=== PATIENT | male | born 1960 | race Caucasian/White ===

== ENCOUNTER 2017-12-08 21:14 | Inpatient (IN) | payer BC ==
[~2017-12-08] VITALS: Ht 182.9 cm; Wt 72.6 kg
[~2017-12-08 21:14] MED LIST changes: -MONT10TA PO; -SERT-173 PO
--- NOTE | 2017-12-08 21:20 | ER Report ---
History and Physical Time Seen By MD: 21:14 HPI/ROS CHIEF COMPLAINT: trauma from falling off of a horse HISTORY OF PRESENT ILLNESS: This is a 57 year old male. Fell off his horse when the horse moved to the side suddenly. He landed on right side/shoulder area. Has pain in the scapula. EMS noted that he was breathing okay and normal vitals in the field. Same on arrival here in the ER. He is able to talk to me, but hurts to breath. Pain in the right shoulder and clavicle area. Thinks he hit his head. Has some neck pain. No loss of consciousness. No pain in back, abdomen , legs. REVIEW OF SYSTEMS: Eyes: No vision changes. ENT: No sore throat or trouble swallowing. Cardiovascular: No palpitations. Respiratory: as above. Gastrointestinal: No abdominal pain. No nausea or vomiting. Genitourinary: No incontinence. Musculoskeletal: As above. Skin: Some abrasions of the elbow area. Neurological: No numbness or weakness noted in the extremities. Allergies: Coded Allergies: kiwi (Verified Allergy, Mild, THROAT SWELLS, 12/08/17) Uncoded Allergies: [facility] (Allergy, Unknown, 04/29/13) Home Meds Reported Medications Sertraline Hcl (ZOLOFT) 50 Mg Tablet, 1 TAB PO QDAY, TAB 03/23/17 Reviewed Nurses Notes: Yes Hx Smoking: Yes Smoking Status: Former Smoker Hx Alcohol Use: Yes Constitutional Vital Sign - Last 24 Hours 12/08/17 12/08/17 12/08/17 12/08/17 21:14 21:15 21:26 21:28 Temp 98.3 Pulse ??? 77 Resp 18 B/P (MAP) 121/82 99/69 (79) 121/82 (95) Pulse Ox 95 O2 Delivery Room Air 12/08/17 12/08/17 12/08/17 12/08/17 21:29 21:30 21:44 21:59 Pulse 75 75 70 Pulse Ox 94 96 97 O2 Flow Rate 2.0 12/08/17 12/08/17 12/08/17 12/08/17 22:14 22:29 22:41 22:44 Pulse ??? 66 69 Resp 24 14 B/P (MAP) 128/89 (102) Pulse Ox 97 97 7/28/12/08/17 12/08/17 12/08/17 22:49 23:00 23:04 23:19 Pulse 66 66 68 Resp 19 B/P (MAP) 112/79 (90) Pulse Ox 97 12/08/17 12/08/17 12/08/17 12/09/17 23:30 23:34 23:49 00:00 Pulse 66 66 Resp 16 16 B/P (MAP) 114/74 (87) 106/78 (87) Pulse Ox 96 97 12/09/17 12/09/17 12/09/17 12/09/17 00:09 00:24 00:30 00:39 Pulse 62 62 62 Resp 22 20 19 B/P (MAP) 103/80 (88) Pulse Ox 95 95 97 12/09/17 12/09/17 12/09/17 00:54 01:00 01:09 Pulse 59 62 Resp 14 15 B/P (MAP) 116/83 (94) Pulse Ox 96 95 Physical Exam General Appearance: The patient is alert, has no immediate need for airway protection, but with significant pain with breathing, and no current signs of toxicity. Eyes: Pupils equal and round, no injection. Reactive to light. Extraocular movements are intact. ENT: No dental or oral trauma. Tympanic membranes normal bilaterally Respiratory: Chest is tender to palpation posterior and lateral right. Breath sounds are equal. Cardiac: Regular rate and rhythm. Gastrointestinal: Soft and non tender, there is no evidence of external or internal trauma by exam. Neurological: GCS 15. Alert and oriented x4. No focal deficits. Skin: No lacerations, have some abrasions on elbow and right hip. Musculoskeletal: Head: Atraumatic without scalp tenderness. Neck: The patient arrived in a cervical collar. The cervical spine is non-tender. Back: There is no thoracic or lumbar spine tenderness. Pain in the right back area mid to upper thoracic. Pelvis: Non-tender, no laxity with pelvic pressure. Extremities: Has some tenderness of the right elbow. DIFFERENTIAL DIAGNOSIS: After history and physical exam differential diagnosis was considered for trauma in falling off of a horse with concern for head injury , cervical spine injury, trunk, ribs, shoulder and lungs on the right side. Medical Decision Making Data Points Result Diagram: 12/08/17212912/08/172129 Laboratory Hematology Test 12/08/17 21:30 Red Blood Count 4.50 M/uL (4.00-5.60) Mean Corpuscular Volume 97.2 fL (80.0-96.0) Mean Corpuscular Hemoglobin 34.3 pg (26.0-33.0) Mean Corpuscular Hemoglobin Concent 35.3 g/dL (32.0-36.0) Red Cell Distribution Width 12.4 % (11.5-14.5) Mean Platelet Volume 6.5 fL (7.2-11.1) Neutrophils (%) (Auto) 54.6 % (39.4-72.5) Lymphocytes (%) (Auto) 35.5 % (17.6-49.6) Monocytes (%) (Auto) 7.8 % (4.1-12.4) Eosinophils (%) (Auto) 1.2 % (0.4-6.7) Basophils (%) (Auto) 0.9 % (0.3-1.4) Nucleated RBC Relative Count (auto) 0.1 /100WBC Neutrophils # (Auto) 3.5 K/uL (2.0-7.4) Lymphocytes # (Auto) 2.2 K/uL (1.3-3.6) Monocytes # (Auto) 0.5 K/uL (0.3-1.0) Eosinophils # (Auto) 0.1 K/uL (0.0-0.5) Basophils # (Auto) 0.1 K/uL (0.0-0.1) Nucleated RBC Absolute Count (auto) 0.01 K/uL Sodium Level 134 mmol/L (137-145) Potassium Level 3.7 mmol/L (3.5-5.0) Chloride Level 97 mmol/L (98-107) Carbon Dioxide Level 23 mmol/L (22-30) Blood Urea Nitrogen 10 mg/dl (9-21) Creatinine 0.90 mg/dl (0.66-1.25) Glomerular Filtration Rate Calc > 60.0 Random Glucose 94 mg/dl (75-110) Lactate 2.5 mmol/L (0.7-2.1) Calcium Level 8.9 mg/dl (8.4-10.2) Total Bilirubin 0.4 mg/dl (0.2-1.3) Aspartate Amino Transf (AST/SGOT) 97 U/L (0-35) Alanine Aminotransferase (ALT/SGPT) 53 U/L (0-56) Alkaline Phosphatase 52 U/L (0-126) Troponin I < 0.012 ng/ml Total Protein 7.9 g/dl (6.3-8.2) Albumin 4.5 g/dl (3.5-5.0) Chemistry Test 12/08/17 21:30 White Blood Count 6.3 k/uL (4.5-11.0) Red Blood Count 4.50 M/uL (4.00-5.60) Hemoglobin 15.4 g/dL (14.0-18.0) Hematocrit 43.7 % (42.0-52.0) Mean Corpuscular Volume 97.2 fL (80.0-96.0) Mean Corpuscular Hemoglobin 34.3 pg (26.0-33.0) Mean Corpuscular Hemoglobin Concent 35.3 g/dL (32.0-36.0) Red Cell Distribution Width 12.4 % (11.5-14.5) Platelet Count 330 K/uL (150-450) Mean Platelet Volume 6.5 fL (7.2-11.1) Neutrophils (%) (Auto) 54.6 % (39.4-72.5) Lymphocytes (%) (Auto) 35.5 % (17.6-49.6) Monocytes (%) (Auto) 7.8 % (4.1-12.4) Eosinophils (%) (Auto) 1.2 % (0.4-6.7) Basophils (%) (Auto) 0.9 % (0.3-1.4) Nucleated RBC Relative Count (auto) 0.1 /100WBC Neutrophils # (Auto) 3.5 K/uL (2.0-7.4) Lymphocytes # (Auto) 2.2 K/uL (1.3-3.6) Monocytes # (Auto) 0.5 K/uL (0.3-1.0) Eosinophils # (Auto) 0.1 K/uL (0.0-0.5) Basophils # (Auto) 0.1 K/uL (0.0-0.1) Nucleated RBC Absolute Count (auto) 0.01 K/uL Glomerular Filtration Rate Calc > 60.0 Lactate 2.5 mmol/L (0.7-2.1) Calcium Level 8.9 mg/dl (8.4-10.2) Total Bilirubin 0.4 mg/dl (0.2-1.3) Aspartate Amino Transf (AST/SGOT) 97 U/L (0-35) Alanine Aminotransferase (ALT/SGPT) 53 U/L (0-56) Alkaline Phosphatase 52 U/L (0-126) Troponin I < 0.012 ng/ml Total Protein 7.9 g/dl (6.3-8.2) Albumin 4.5 g/dl (3.5-5.0) EKG/Imaging EKG Interpretation 12 lead EKG: Rhythm: normal sinus rhythm, rate 76 [place]: normal QRS: normal ST segments: normal Imaging CHEST SINGLE AP 12/08/2017 21:34 hours. HISTORY: Trauma from fall off horse. Right shoulder/scapula/chest pain. COMPARISON: Chest CT 04/07/2011. Chest x-ray 02/08/2008. TECHNIQUE: Portable AP view of the chest. FINDINGS: Tubes/lines/hardware: None. Pulmonary: Lungs are clear. There is no pneumothorax or pleural effusion. Cardiomediastinal: Cardiac and mediastinal silhouettes are within normal limits. Bones/soft tissues: There is an oblique fracture through the mid right clavicle with slight superior displacement of the distal fracture fragment compared to the proximal. There are fractures of the posterolateral third through eighth right ribs. The fourth through sixth are displaced. There is a healed distal left clavicle fracture. The visible abdomen is normal. IMPRESSION: 1. Mildly displaced right clavicular fracture. 2. Right third through eighth posterolateral rib fractures. No pneumothorax. Report Dictated By: Shara Lyman at 12/08/2017 9:55 PM HEAD W/O CONTRAST EXAMINATION: CT head/brain without contrast HISTORY: Trauma TECHNIQUE: Contiguous axial images were obtained from the skull base to the vertex without intravenous contrast. One of the following dose optimization techniques was utilized in the performance of this exam: Automated exposure control; adjustment of the mA and/ or kV according to the patient's size; or use of an iterative reconstruction technique. Specific details can be referenced in the facility's radiology CT exam operational policy. COMPARISON STUDIES: None FINDINGS: Ventricles/sulci/fissures: Midline in position and normal in configuration. Masses/hemorrhage/midline shift: No hemorrhage. White matter: The white matter edema or contusion changes Ortega-white differentiation: Negative Extra-axial spaces: No subdural or epidural fluid collections. No subarachnoid blood Dural venous sinuses/arterial structures: Negative Skull base/calvarium: Negative Visualized mastoid air cells/paranasal sinuses: Negative IMPRESSION: 1. Negative CT scan of the head for acute intracranial pathology. Report Dictated By: Andrea Garcia MD at 12/08/2017 11:09 PM C-SPINE W/O CONTRAST EXAMINATION: CT cervical spine without contrast trauma COMPARISON STUDIES: None TECHNIQUE: Axial images were obtained from the skull base through the upper thoracic spine without IV contrast.. Coronal and sagittal reformatted images were obtained from the axial source data. One of the following dose optimization techniques was utilized in the performance of this exam: Automated exposure control; adjustment of the mA and/ or kV according to the patient's size; or use of an iterative reconstruction technique. Specific details can be referenced in the facility's radiology CT exam operational policy. FINDINGS: Prevertebral soft tissues: Negative Alignment: Straightening of the cervical spine. Dextroscoliotic curvature of the cervical spine maximally convex to the right at the L4-5 interspace. Vertebral bodies: No vertebral body compression deformities or fractures. Posterior elements: Facet joints with no facet fracture or disruption. Facet arthropathy most notable at the C2-3 and 34 levels on the left. Moderately severe foraminal narrowing changes on the right at the C6-7 level. Moderate severe foraminal narrowing changes are also seen on the left at the C3-4 level. Disc spaces: Disc space narrowing and both anterior and posterior osteophytic spurring changes at the C6-7 level. Visualized soft tissues anterior neck: Negative Visualized lung/mediastinum: No apical mass lesion. No pathologic lymphadenopathy. IMPRESSION: 1. Negative cervical spine for acute trauma. DJD changes as described. Report Dictated By: Andrea Garcia MD at 12/08/2017 11:26 PM CHEST W CONTRAST EXAMINATION: CT chest with IV contrast Trauma TECHNIQUE: Spiral scan was obtained through the chest during injection of nonionic iodinated intravenous contrast. Contrast: 75 mL of IV Isovue-370 COMPARISON STUDIES: 04/07/2011 One of the following dose optimization techniques was utilized in the performance of this exam: Automated exposure control; adjustment of the mA and/ or kV according to the patient's size; or use of an iterative reconstruction technique. Specific details can be referenced in the facility's radiology CT exam operational policy. FINDINGS: Lungs / pleura: No pneumothorax. Small hyperdense collection of fluid within the right lung compatible with a hemothorax. Bibasilar passive atelectatic lung changes right greater than left. Mediastinum / evelin: No mediastinal hemorrhage Heart / pericardium: Aortic arch and brachycephalic vessels are normal. Vessels: Aortic arch and brachycephalic vessels are unremarkable Musculoskeletal / Body wall: There are rib fractures involving the lateral third rib nondisplaced, fourth rib with 20% cortical offset, fifth rib laterally with 6 L of cortical buckling, seventh lateral rib with 40% cortical offset, eighth lateral rib with 2 mm of cortical offset,. In addition there are cortical buckling of the right ninth rib at its vertebral body articulation, eighth rib at its articulation, and transverse minimally buckled posterior rib at its reticulation involving the seventh rib. As a distal third clavicular fracture. Old healed left clavicular fracture. Lymph node assessment: negative Lower neck: negative Upper abdomen: No liver injury. No perihepatic or splenic fluid. IMPRESSION: 1. Multiple lateral right-sided rib fractures from the fourth through the eighth ribs as well as posterior fractures of the seventh through ninth ribs near their vertebral articulations. 2. Small right hemothorax. 3. Right clavicular fracture. Report Dictated By: Andrea Garcia MD at 12/08/2017 11:31 PM ED Course/Re-evaluation Clinical Indication for ER IV: Hydration, IV Access ED Course Initial evaluation, primary survey, shows airway, breathing and circulation intact and stable, with concern for pulmonary injury. Exposed for full evaluation and has no neurologic deficits. Further evaluation was done as noted above. Initial chest x-ray done, showing no signs of pneumothorax, but with some rib fractures noted. CT scans done with results as noted. Given another dose of Fentanyl 50mcg IV on arrival and prior to CT scan. Several doses of Dilaudid 0.5mg IV during the rest of the ER stay. Discussed injuries noted on the CT scan with the patient and family. Cervical collar removed and cleared after scans done. Recommended to the patient admission for observation based on the injuries and discussed with Dr. Ricci who came to the ER to evaluate him. Tetanus booster given. After discussing with Dr. Ricci, called and spoke with Dr. Velarde, anesthesiology, who came to see the patient for epidural to help with pain control associated with the rib fractures. Dr. Velarde performed an epidural here in the ER to help with pain control. The patient was admitted to the ICU for further care. Decision to Disposition Date: Dec 09, 2017 Decision to Disposition Time: 00:16 Depart Departure Latest Vital Signs Vital Signs Date Time Temp Pulse Resp B/P (MAP) Pulse Ox O2 Delivery O2 Flow Rate FiO2 12/09/17 01:09 62 15 95 12/09/17 01:00 116/83 (94) 12/08/17 21:30 2.0 12/08/17 21:15 98.3 Room Air Impression: Primary Impression: Closed right clavicular fracture Additional Impressions: Multiple fractures of ribs, right side, initial encounter for closed fracture Hemothorax, right Abrasions of multiple sites Condition: Condition Unchanged Disposition: Admitted from ER Problem Qualifiers Primary Impression: Closed right clavicular fracture Encounter type: initial encounter Clavicle location: unspecified part of clavicle Fracture alignment: displaced Qualified Codes: S42.001A - Fracture of unspecified part of right clavicle, initial encounter for closed fracture CAMERON MCKAY MD Dec 08, 2017 21:20
[2017-12-08] MEDS ORDERED: fentaNYL CITR 100 MCG/2 ML AMP ONE (21:29)
[2017-12-08] MEDS ORDERED: EMS NS 0.9%(*) 1000 ML BAG 1,000 ML IV ONE (21:35)
[2017-12-08 21:46] LABS: PLATELET COUNT, AUTOMATED 330 K/uL (150-450)
[2017-12-08] MEDS ORDERED: IOPAMIDOL 76% 100 ML INFUS BTL 100 ML ONE (21:55)
--- NOTE | 2017-12-08 22:04 | RADIOLOGY IMAGING REPORT ---
FACILITY: [facility] PATIENT NAME: Helena Nuñez : 1960 MR: [id number] V: [id number] EXAM DATE: ORDERING PHYSICIAN: CAMERON MCKAY TECHNOLOGIST: Location: [facility] [place] Patient: Helena Nuñez : 1960 Visit/Account:[id number] Date of Sevice: 12/08/2017 CHEST SINGLE AP 12/08/2017 21:34 hours. HISTORY: Trauma from fall off horse. Right shoulder/scapula/chest pain. COMPARISON: Chest CT 04/07/2011. Chest x-ray 02/08/2008. TECHNIQUE: Portable AP view of the chest. FINDINGS: Tubes/lines/hardware: None. Pulmonary: Lungs are clear. There is no pneumothorax or pleural effusion. Cardiomediastinal: Cardiac and mediastinal silhouettes are within normal limits. Bones/soft tissues: There is an oblique fracture through the mid right clavicle with slight superior displacement of the distal fracture fragment compared to the proximal. There are fractures of the pos terolateral third through eighth right ribs. The fourth through sixth are displaced. There is a heale d distal left clavicle fracture. The visible abdomen is normal. IMPRESSION: 1. Mildly displaced right clavicular fracture. 2. Right third through eighth posterolateral rib fractures. No pneumothorax. Report Dictated By: Shara Lyman at 12/08/2017 9:55 PM Report E-Signed By: Shara Lyman at 12/08/2017 10:00 PM WSN:[id number]
[2017-12-08] MEDS ORDERED: HYDROMORPHONE HCL 1 MG/ML SYRINGE IVP ONE ×2 (22:35→23:30)
--- NOTE | 2017-12-08 22:38 | EKG ---
FACILITY: [facility] PATIENT NAME: KIM HAIRSTON : [id number] MR: [id number] V: [id number] EXAM DATE: ORDERING PHYSICIAN: CAMERON MCKAY TECHNOLOGIST: ABRAHAM Test Reason : TRAUMA Blood Pressure : / mmHG Vent. Rate : 076 BPM Atrial Rate : 076 BPM P-R Int : 190 ms QRS Dur : 092 ms QT Int : 398 ms P-R-T Axes : 064 -09 029 degrees QTc Int : 447 ms Normal sinus rhythm Prominent U waves throughout may be normal variant but would consider hypokalemia. No previous ECGs available Confirmed by SHAWN GALAVIZ ([id number]) on 12/09/2017 6:04:59 AM Referred By: Confirmed By:SHAWN GALAVIZ
--- NOTE | 2017-12-08 23:29 | RADIOLOGY IMAGING REPORT ---
FACILITY: [facility] PATIENT NAME: Helena Nuñez : 1960 MR: [id number] V: [id number] EXAM DATE: ORDERING PHYSICIAN: CAMERON MCKAY TECHNOLOGIST: Location: [facility] [place] Patient: Helena Nuñez : 1960 Visit/Account:[id number] Date of Sevice: 12/08/2017 HEAD W/O CONTRAST EXAMINATION: CT head/brain without contrast HISTORY: Trauma TECHNIQUE: Contiguous axial images were obtained from the skull base to the vertex without intravenou s contrast. One of the following dose optimization techniques was utilized in the performance of this exam: Autom ated exposure control; adjustment of the mA and/or kV according to the patient's size; or use of an i terative reconstruction technique. Specific details can be referenced in the facility's radiology C T exam operational policy. COMPARISON STUDIES: None FINDINGS: Ventricles/sulci/fissures: Midline in position and normal in configuration. Masses/hemorrhage/midline shift: No hemorrhage. White matter: The white matter edema or contusion changes Ortega-white differentiation: Negative Extra-axial spaces: No subdural or epidural fluid collections. No subarachnoid blood Dural venous sinuses/arterial structures: Negative Skull base/calvarium: Negative Visualized mastoid air cells/paranasal sinuses: Negative IMPRESSION: 1. Negative CT scan of the head for acute intracranial pathology. Report Dictated By: Andrea Garcia MD at 12/08/2017 11:09 PM Report E-Signed By: Andrea Garcia MD at 12/08/2017 11:26 PM WSN:[id number]
--- NOTE | 2017-12-08 23:34 | RADIOLOGY IMAGING REPORT ---
FACILITY: [facility] PATIENT NAME: Helena Nuñez : 1960 MR: [id number] V: [id number] EXAM DATE: ORDERING PHYSICIAN: CAMERON MCKAY TECHNOLOGIST: Location: [facility] Patient: Helena Nuñez : 1960 Visit/Account:[id number] Date of Sevice: 12/08/2017 C-SPINE W/O CONTRAST EXAMINATION: CT cervical spine without contrast trauma COMPARISON STUDIES: None TECHNIQUE: Axial images were obtained from the skull base through the upper thoracic spine without IV contrast.. Coronal and sagittal reformatted images were obtained from the axial source data. One of the following dose optimization techniques was utilized in the performance of this exam: Autom ated exposure control; adjustment of the mA and/or kV according to the patient's size; or use of an i terative reconstruction technique. Specific details can be referenced in the facility's radiology C T exam operational policy. FINDINGS: Prevertebral soft tissues: Negative Alignment: Straightening of the cervical spine. Dextroscoliotic curvature of the cervical spine maxim ally convex to the right at the L4-5 interspace. Vertebral bodies: No vertebral body compression deformities or fractures. Posterior elements: Facet joints with no facet fracture or disruption. Facet arthropathy most notable at the C2-3 and 34 levels on the left. Moderately severe foraminal narrowing changes on the right at the C6-7 level. Moderate severe foraminal narrowing changes are also seen on the left at the C3-4 le alyce. Disc spaces: Disc space narrowing and both anterior and posterior osteophytic spurring changes at the C6-7 level. Visualized soft tissues anterior neck: Negative Visualized lung/mediastinum: No apical mass lesion. No pathologic lymphadenopathy. IMPRESSION: 1. Negative cervical spine for acute trauma. DJD changes as described. Report Dictated By: Andrea Garcia MD at 12/08/2017 11:26 PM Report E-Signed By: Andrea Garcia MD at 12/08/2017 11:31 PM WSN:[id number]
[2017-12-08] MEDS ORDERED: PANTOPRAZOLE SOD 40 MG IV VIAL IVP ONE (23:40)
--- NOTE | 2017-12-08 23:45 | RADIOLOGY IMAGING REPORT ---
[place] [facility] [place] NAME: Helena Nuñez : 1960 MR: [id number] V: [id number] EXAM DATE: ORDERING PHYSICIAN: CAMERON MCKAY TECHNOLOGIST: Location: [facility] [place] Patient: Hleena Nuñez : 1960 Visit/Account:[id number] Date of Sevice: 12/08/2017 CHEST W CONTRAST EXAMINATION: CT chest with IV contrast Trauma TECHNIQUE: Spiral scan was obtained through the chest during injection of nonionic iodinated intrav enous contrast. Contrast: 75 mL of IV Isovue-370 COMPARISON STUDIES: 04/07/2011 One of the following dose optimization techniques was utilized in the performance of this exam: Autom ated exposure control; adjustment of the mA and/or kV according to the patient's size; or use of an i terative reconstruction technique. Specific details can be referenced in the facility's radiology C T exam operational policy. FINDINGS: Lungs / pleura: No pneumothorax. Small hyperdense collection of fluid within the right lung compatibl e with a hemothorax. Bibasilar passive atelectatic lung changes right greater than left. Mediastinum / evelin: No mediastinal hemorrhage Heart / pericardium: Aortic arch and brachycephalic vessels are normal. Vessels: Aortic arch and brachycephalic vessels are unremarkable Musculoskeletal / Body wall: There are rib fractures involving the lateral third rib nondisplaced, fo urth rib with 20% cortical offset, fifth rib laterally with 6 L of cortical buckling, seventh lateral rib with 40% cortical offset, eighth lateral rib with 2 mm of cortical offset,. In addition there ar e cortical buckling of the right ninth rib at its vertebral body articulation, eighth rib at its dwight culation, and transverse minimally buckled posterior rib at its reticulation involving the seventh ri b. As a distal third clavicular fracture. Old healed left clavicular fracture. Lymph node assessment: negative Lower neck: negative Upper abdomen: No liver injury. No perihepatic or splenic fluid. IMPRESSION: 1. Multiple lateral right-sided rib fractures from the fourth through the eighth ribs as well as post erior fractures of the seventh through ninth ribs near their vertebral articulations. 2. Small right hemothorax. 3. Right clavicular fracture. Report Dictated By: Andrea Garcia MD at 12/08/2017 11:31 PM Report E-Signed By: Andrea Garcia MD at 12/08/2017 11:42 PM WSN:[id number]
[2017-12-09] VITALS (33 sets, daily range): BP systolic 132–176; BP diastolic 70–99; Ht 182.9 cm; Wt 72.6 kg
[2017-12-09] MEDS ORDERED: HYDROMORPHONE HCL 1 MG/ML SYRINGE IVP ONE ×2 (00:35→01:10)
[2017-12-09] MEDS ORDERED: ONDANSETRON 4 MG/2 ML VIAL IVP PRN (00:35)
[2017-12-09] MEDS ORDERED: NALOXONE HCL 0.4 MG/ML VIAL IVP PRN (00:35)
--- NOTE | 2017-12-09 00:49 | RADIOLOGY IMAGING REPORT ---
FACILITY: [facility] PATIENT NAME: Helena Nuñez : 1960 MR: [id number] V: [id number] EXAM DATE: ORDERING PHYSICIAN: CAMERON MCKAY TECHNOLOGIST: Location: [facility] [place] Patient: Helena Nuñez : 1960 Visit/Account:[id number] Date of Sevice: 12/08/2017 ELBOW 3 VIEWS RIGHT HISTORY: Trauma. Fell from horse. Elbow pain. COMPARISON: None. TECHNIQUE: AP, oblique, and lateral views of the right elbow. FINDINGS: There is no fracture or dislocation. There is degenerative change of the elbow joint. No ricci int effusion. IMPRESSION: 1. Degenerative changes, but no acute osseous abnormality of the right elbow. Report Dictated By: Shara Lyman at 12/09/2017 12:44 AM Report E-Signed By: Shara Lyman at 12/09/2017 12:45 AM WSN:[id number]
[2017-12-09] MEDS ORDERED: DIPHTH/TETANUS/ACEL. PERTUSSIS IM ONLY ONE (00:50)
--- NOTE | 2017-12-09 00:57 | Gen Surgery History & Physical ---
History of Present Illness Chief Complaint Right chest wall pain History of Present Illness This 57 year old fell off his horse onto his right side. He was wearing a helmet and denies LOC. He complained of right sided chest wall pain that worsens with deep breathing or movement. Also c/o right clavicle and elbow pain. He denies neck, back, or abdominal pain. History Problems: (1) Personal history of subdural hematoma Status: Resolved (2) Depression Status: Chronic Home Meds Reported Medications Sertraline Hcl (ZOLOFT) 50 Mg Tablet, 1 TAB PO QDAY, TAB 03/23/17 Allergies: Coded Allergies: kiwi (Verified Allergy, Mild, THROAT SWELLS, 12/08/17) Uncoded Allergies: CEMENT KOOTENAI (Allergy, Unknown, 04/29/13) Review of Systems All Systems Reviewed/Normal: Yes, Except as Noted Cardiovascular: Chest Pain Musculoskeletal: Pain Psychiatric: Depression Exam General Appearance: Alert, Awake, Afebrile Neuro: No Gross deficits Eyes: PERRLA ENT: Moist Mucous Membranes Cardiovascular: Regular Rate and Rhythm Respiratory: No Respiratory Distress (breath sounds diminished in both bases though right > left) Chest: Other (Tender right chest wall, no subcutaneous emphysema or crepitance) GI: Abd Soft and Non-Tender Musculoskeletal: Other (Tender right clavicle) Extremities: Other (right elbow tender, minimal edema, no deformity, distal CMS intact, small abrasion.) Psych: Alert & Oriented X3, Appropriate Mood & Affect Medical Decision Making Data Points Result Diagram: 12/08/17212912/08/172129 Assessment and Plan Problems: (1) Abrasions of multiple sites Status: Acute Assessment & Plan: Received tetanus booster in the past year Bacitracin to wounds (2) Hemothorax, right Status: Acute Assessment & Plan: Small hemothorax Will recheck CXR in am, if larger then I will place a chest tube Recheck CBC in am (3) Multiple fractures of ribs, right side, initial encounter for closed fracture Status: Acute Assessment & Plan: Pain control We have asked anesthesiologist to place a thoracic epidural to help with pain control Likely will need a Pearson secondary to epidural IS and Vigorous pulmonary toilet (4) Closed right clavicular fracture Status: Acute Assessment & Plan: sling pain control Time Spent: > 30 min Venous Thromboembolism VTE Risk Physician Assess for VTE Risk: Yes Patient's VTE Risk: Low VTE Diagnostic Test 2 Days Prior to Admit: No Antithrombotics Is Pt On Any Antithrombotics?: No Prophylaxis Tx Contraindicated Pharmacological Contraindicati: Pt at Low Risk for VTE LALI RENE MD Dec 09, 2017 00:57
[2017-12-09] MEDS ORDERED: NS(*) 0.9% 1000 ML BAG 1,000 ML IV ONE (01:10)
[2017-12-09] MEDS ORDERED: LR(*) 1000 ML BAG 1,000 ML IV PRN (03:15)
[2017-12-09] MEDS ORDERED: ROPIVACAINE EPI ONE (03:15)
[2017-12-09] MEDS ORDERED: PHENYLEPHRINE 10 MG/1 ML VIAL IVP PRN (03:20)
[2017-12-09] MEDS ORDERED: NICOTINE 14 MG/24 HR PATCH TD ONE ×2 (03:39→09:00)
[2017-12-09] MEDS: LR(*) 1000 ML BAG 1,000 ML IV PRN ×2 (04:49→14:47)
--- NOTE | 2017-12-09 05:55 | RADIOLOGY IMAGING REPORT ---
[place] [facility] [place]ena Nuñez : 1960 MR: [id number] V: [id number] EXAM DATE: ORDERING PHYSICIAN: LALI RENE TECHNOLOGIST: [place] [facility] [place]: Helena Nuñez : 1960 Visit/Account:[id number] Date of Sevice: 12/09/2017 CHEST SINGLE AP 12/09/2017 06:30 hours. HISTORY: Follow-up right blunt chest trauma. COMPARISON: 12/08/2017 and studies dating to 02/08/2008. TECHNIQUE: Portable AP view of the chest. FINDINGS: Tubes/lines/hardware: There are external chest leads. There is an epidural catheter. Pulmonary: Lung volumes are lower, and there is new bibasilar atelectasis. There is no pneumothorax o r pleural effusion. Cardiomediastinal: Cardiac and mediastinal silhouettes are within normal limits. Bones/soft tissues: No acute osseous abnormality. Numerous right posterolateral rib fractures are unc hanged. Right clavicular fracture is less well appreciated due to change in patient position. Old lef t clavicle fracture. The visible abdomen is normal. IMPRESSION: 1. Lower lung volumes with new bibasilar atelectasis. 2. Unchanged right rib fractures and right clavicular fracture. Report Dictated By: Shara Lyman at 12/09/2017 5:47 AM Report E-Signed By: Shara Lyman at 12/09/2017 5:51 AM WSN:[id number]
[2017-12-09] MEDS: DOCUSATE SODIUM 100 MG CAP PO SCH ×2 (08:47→20:17)
[2017-12-09] MEDS: PANTOPRAZOLE SOD 40 MG TABEC PO SCH (08:47)
[2017-12-09] MEDS: PATCH REMOVAL 1 EA TP SCH (08:48)
[2017-12-09] MEDS ORDERED: SERTRALINE HCL 50 MG TAB PO SCH (10:20)
--- NOTE | 2017-12-09 10:34 | General Surgery Progress Note ---
Subjective Progress Notes Subjective "My collar bone hurts" Physical Exam Vital Signs Date Time Temp Pulse Resp B/P (MAP) Pulse Ox O2 Delivery O2 Flow Rate FiO2 12/09/17 10:09 97.9 16 153/80 (104) 94 Nasal Cannula 2.0 12/09/17 09:45 62 Intake and Output 12/10/17 07:00 Intake Total 590 ml Balance 590 ml Intake Oral 590 ml General Appearance: Alert, Awake, No Acute Distress, Afebrile Neuro: No Gross deficits Eyes: PERRLA ENT: Moist Mucous Membranes Cardiovascular: Regular Rate and Rhythm Respiratory: No Respiratory Distress, Clear to Auscultation Chest: Other (No subcutaneous emphysema or crepitance) GI: Soft and Non-Tender Musculoskeletal: Other (Moderate swelling and ecchymosis over right clavicle fracture, Distal CMS intact) Result Diagram: 12/08/17212912/08/172129 Imaging CXR with no significant change. Assessment and Plan Problems: (1) Abrasions of multiple sites Status: Acute Assessment & Plan: 12/09/17: Received tetanus booster in the past year, Bacitracin to wounds (2) Hemothorax, right Status: Acute Assessment & Plan: 12/09/17: Small hemothorax noted on CT not appreciated on this am CXR, Will recheck CXR in am, H&H stable. (3) Multiple fractures of ribs, right side, initial encounter for closed fracture Status: Acute Assessment & Plan: 12/09/17: Pain control good with epidural, voiding okay. Continue IS and Vigorous pulmonary toilet (4) Closed right clavicular fracture Status: Acute Assessment & Plan: 12/09/17: continue to use sling as we mobilize, ice pack, continue Percocet for pain control. (5) Depression Status: Chronic Assessment & Plan: Continue home Zoloft. Time Spent: < 30 min Exam Sepsis Risk: No Definite Risk Problem Qualifiers (1) Closed right clavicular fracture: Encounter type: initial encounter Clavicle location: unspecified part of clavicle Fracture alignment: displaced Qualified Codes: S42.001A - Fracture of unspecified part of right clavicle, initial encounter for closed fracture LALI RENE MD Dec 09, 2017 10:34
[2017-12-09] MEDS ORDERED: MONT10TA PO (10:50)
[2017-12-09] MEDS ORDERED: SERT-173 PO (10:50)
[2017-12-09] MEDS ORDERED: SERTRALINE HCL 50 MG TAB PO ONE (10:55)
[2017-12-09] MEDS: NICOTINE 14 MG/24 HR PATCH TD SCH (10:57)
[2017-12-09] MEDS: ROPIVACAINE EPI SCH (16:10)
[2017-12-10] VITALS (7 sets, daily range): BP systolic 126–153; BP diastolic 73–102
[2017-12-10] MEDS: LR(*) 1000 ML BAG 1,000 ML IV PRN (00:56)
[2017-12-10 05:58] LABS: PLATELET COUNT, AUTOMATED 243 K/uL (150-450)
--- NOTE | 2017-12-10 06:17 | RADIOLOGY IMAGING REPORT ---
FACILITY: [facility] PATIENT NAME: Helena Nuñez : 1960 MR: [id number] V: [id number] EXAM DATE: ORDERING PHYSICIAN: LALI RENE TECHNOLOGIST: Location: [facility] Patient: Helena Nuñez : 1960 Visit/Account:[id number] Date of Sevice: 12/10/2017 CHEST PA AND LAT HISTORY: Follow-up. Right-sided chest trauma. COMPARISON: 12/09/2017 and studies dating to 02/08/2008. TECHNIQUE: PA and lateral views of the chest. FINDINGS: Tubes/lines/hardware: There is an epidural catheter. Pulmonary: Small right pleural effusion is new or larger. There is a trace left pleural effusion that is new or larger. There are adjacent bibasilar opacities that have progressed. No pneumothorax. Cardiomediastinal: Cardiac and mediastinal silhouettes are within normal limits. Bones/soft tissues: No acute osseous abnormality. Multiple right-sided rib fractures are unchanged. T he visible abdomen is normal. IMPRESSION: 1. Small right and trace left pleural effusions are new or have increased in size. 2. Worsening bibasilar opacities, likely worsening atelectasis. Report Dictated By: Shara Lyman at 12/10/2017 6:10 AM Report E-Signed By: Shara Lyman at 12/10/2017 6:13 AM WSN:[id number]
[2017-12-10] MEDS: DOCUSATE SODIUM 100 MG CAP PO SCH ×2 (08:20→20:25)
[2017-12-10] MEDS: NICOTINE 14 MG/24 HR PATCH TD SCH (08:21)
[2017-12-10] MEDS: PANTOPRAZOLE SOD 40 MG TABEC PO SCH (08:21)
[2017-12-10] MEDS: PATCH REMOVAL 1 EA TP SCH (08:22)
[2017-12-10] MEDS ORDERED: SERTRALINE HCL 50 MG TAB PO SCH (09:00)
[2017-12-10] MEDS: ROPIVACAINE EPI SCH ×2 (09:30→20:45)
--- NOTE | 2017-12-10 09:44 | General Surgery Progress Note ---
Subjective Progress Notes Subjective "I'm hurting", tolerating diet, passing flatus, no BM since admission. Voiding without difficulty. Patient Complains of: Respiratory: Congestion Musculoskeletal: Pain Physical Exam Vital Signs Date Time Temp Pulse Resp B/P (MAP) Pulse Ox O2 Delivery O2 Flow Rate FiO2 12/10/17 08:10 92 Nasal Cannula 2.0 12/10/17 07:49 98.2 65 24 131/91 (104) Intake and Output 12/11/17 07:00 Intake Total 0 ml Output Total 500 ml Balance -500 ml Intake Oral 0 ml Output Urine Total 500 ml General Appearance: Alert, Awake, No Acute Distress, Afebrile Neuro: No Gross deficits Eyes: PERRLA ENT: Moist Mucous Membranes Cardiovascular: Regular Rate and Rhythm Respiratory: No Respiratory Distress, Other (Diminished breath sounds both bases, rhonchi with partial clearing with coughing) GI: Soft and Non-Tender Extremities: Soft and Non Tender Psych: Alert & Oriented X3, Appropriate Mood & Affect Result Diagram: 12/10/17 0510 12/08/170 Assessment and Plan Problems: (1) Abrasions of multiple sites Status: Acute Assessment & Plan: 12/09/17: Received tetanus booster in the past year, Bacitracin to wounds (2) Hemothorax, right Status: Acute Assessment & Plan: 12/09/17: Small hemothorax noted on CT not appreciated on this am CXR, Will recheck CXR in am, H&H stable. 12/10/17: CXR with increase in effusion. Hct down but likely related to IV hydration. Will get repeat CT chest today. Will place chest tube if this fluid appears as blood. Repeat CBC in am. (3) Multiple fractures of ribs, right side, initial encounter for closed fracture Status: Acute Assessment & Plan: . 12/09/17: Pain control good with epidural, voiding okay. Continue IS and Vigorous pulmonary toilet. 12/10/17: Having increased chest wall pain this am. Anesthesia will re bolus epidural. Once pain under better control, will need vigorous pulmonary toilet. (4) Closed right clavicular fracture Status: Acute Assessment & Plan: 12/09/17: continue to use sling as we mobilize, ice pack, continue Percocet for pain control. 12/10/17: continue with same plan. (5) Depression Status: Chronic Assessment & Plan: Continue home Zoloft. Time Spent: < 30 min Exam Sepsis Risk: No Definite Risk Problem Qualifiers (1) Closed right clavicular fracture: Encounter type: initial encounter Clavicle location: unspecified part of clavicle Fracture alignment: displaced Qualified Codes: S42.001A - Fracture of unspecified part of right clavicle, initial encounter for closed fracture LALI RENE MD Dec 10, 2017 09:44
--- NOTE | 2017-12-10 17:30 | RADIOLOGY IMAGING REPORT ---
FACILITY: [facility] PATIENT NAME: Helena Nuñez : 1960 MR: [id number] V: [id number] EXAM DATE: ORDERING PHYSICIAN: LALI RENE TECHNOLOGIST: Location: [facility] [place] Patient: Helena Nuñez : 1960 Visit/Account:[id number] Date of Sevice: 12/10/2017 CT CHEST HIGH RES WO CONTRAST COMPARISON: Standard protocol CT chest with contrast 12/08/2017. HISTORY: follow up chest trauma. TECHNIQUE: Axial CT of the chest without intravenous contrast, interstitial lung disease protocol by request, including 3 mm axial contiguous reconstructions, limited expiratory and prone scans in 1 mm high-resolution images at 1 cm intervals. Coronal and sagittal reformats. One of the following dose o ptimization techniques was utilized in the performance of this exam: automated exposure control; adj ustment of the mA and/or kV according to patient size; or use of iterative reconstruction technique. Specific details can be referenced in the facility's radiology CT exam operational policy. CT CHEST FINDINGS: CARDIAC: Mild coronary artery calcifications. No pericardial effusion. MEDIASTINUM/ELISE: No well-defined hematoma. No significantly enlarged mediastinal nodes and no defin ite hilar adenopathy, limited assessment without IV contrast VASCULATURE: There is no intramural hematoma. There is cardiac pulsation artifact in the main pulmon yrn artery and ascending aorta. CHEST WALL: There is no axillary adenopathy or well-defined soft tissue hematoma. There is fat stran ding in the right supraclavicular fat system with soft tissue contusion. LUNGS/PLEURA: Small right pleural effusion is larger. Trace left pleural effusion is new. There are multifocal, patchy areas of groundglass attenuation and consolidation with an upper lung zone predomi nance, new from previous. These did not significantly clear on prone scanning. These are most consist ent with evolving lung contusions given the history of recent trauma. Multifocal pneumonia is possibl e. There is no pneumothorax. No significant air trapping on expiratory scanning. BONES: There are no vertebral body compression fractures. Multiple acute right rib fractures as rece ntly described. An acute longitudinal fracture of the right clavicular shaft is also noted with 5 mm anterior displacement. This has been described on prior chest x-ray. LIMITED ABDOMEN: Unremarkable. OTHER: Negative. IMPRESSION: 1. Multiple patchy areas of consolidation with an upper lung zone predominance, new from 12/08/2017 m ost consistent with evolving lung contusions. Multifocal pneumonia is also possible. 2. A small right pleural effusion is larger. A trace left pleural effusion is new. Neither appears h emorrhagic. 3. Previously described fractures including multiple right rib fractures on the right clavicular sha ft fracture are stable. 4. Mild coronary artery calcifications. Report Dictated By: German Parks at 12/10/2017 5:17 PM Report E-Signed By: German Parks at 12/10/2017 5:27 PM WSN:[id number]
--- NOTE | 2017-12-10 23:52 | General Surgery Progress Note ---
Assessment and Plan Problems: (1) Abrasions of multiple sites Status: Acute Assessment & Plan: 12/09/17: Received tetanus booster in the past year, Bacitracin to wounds (2) Hemothorax, right Status: Acute Assessment & Plan: 12/09/17: Small hemothorax noted on CT not appreciated on this am CXR, Will recheck CXR in am, H&H stable. 12/10/17: CXR with increase in effusion. Hct down but likely related to IV hydration. Will get repeat CT chest today. Will place chest tube if this fluid appears as blood. Repeat CBC in am. 12/10/17: Chest CT reviewed, will continue to hold off on chest drain, though if increase further than will need pig tail or chest tube. Recheck CXR in am. Radiologist reports 1. Multiple patchy areas of consolidation with an upper lung zone predominance, new from 12/08/2017 most consistent with evolving lung contusions. Multifocal pneumonia is also possible. 2. A small right pleural effusion is larger. A trace left pleural effusion is new. Neither appears hemorrhagic. 3. Previously described fractures including multiple right rib fractures on the right clavicular shaft fracture are stable. 4. Mild coronary artery calcifications. (3) Multiple fractures of ribs, right side, initial encounter for closed fracture Status: Acute Assessment & Plan: . 12/09/17: Pain control good with epidural, voiding okay. Continue IS and Vigorous pulmonary toilet. 12/10/17: Having increased chest wall pain this am. Anesthesia will re bolus epidural. Once pain under better control, will need vigorous pulmonary toilet. (4) Closed right clavicular fracture Status: Acute Assessment & Plan: 12/09/17: continue to use sling as we mobilize, ice pack, continue Percocet for pain control. 12/10/17: continue with same plan. (5) Depression Status: Chronic Assessment & Plan: Continue home Zoloft. Problem Qualifiers (1) Closed right clavicular fracture: Encounter type: initial encounter Clavicle location: unspecified part of clavicle Fracture alignment: displaced Qualified Codes: S42.001A - Fracture of unspecified part of right clavicle, initial encounter for closed fracture LALI RENE MD Dec 10, 2017 23:52
[2017-12-11] VITALS (87 sets, daily range): BP systolic 75–167; BP diastolic 52–102
[2017-12-11 05:38] LABS: PLATELET COUNT, AUTOMATED 227 K/uL (150-450)
[2017-12-11] MEDS ORDERED: ROPIVACAINE EPI SCH (05:41)
[2017-12-11] MEDS ORDERED: SALINE 0.65% NAS SPR 44 ML BTL PRN (05:45)
[2017-12-11] MEDS: ALBUTEROL 2.5 MG/3 ML NEB NEB SCH ×5 (05:58→21:08)
[2017-12-11] MEDS: ACETAMINOPHEN(*)1000 MG/100 ML 100 ML IVPB SCH ×4 (06:08→23:48)
--- NOTE | 2017-12-11 06:37 | RADIOLOGY IMAGING REPORT ---
FACILITY: [facility] - [place] PATIENT NAME: Helena Nuñez : 1960 MR: [id number] V: [id number] EXAM DATE: ORDERING PHYSICIAN: LALI RENE TECHNOLOGIST: Location: [facility] - [place] Patient: Helena Nuñez : 1960 Visit/Account:[id number] Date of Sevice: 12/11/2017 CHEST SINGLE AP Indication: Follow-up blunt chest trauma. Comparison: December 10, 2017. Findings: Heart size within normal limits. Increased patchy opacities within both lungs. Small to moderate right and small left pleural effusions with associated atelectasis. No visualized pneumothorax. Right-sided rib fractures. IMPRESSION: 1. Increased patchy opacities within both lungs. 2. Small moderate right and small left pleural effusions with associated atelectasis. Report Dictated By: Neal Lea MD at 12/11/2017 6:31 AM Report E-Signed By: Neal Lea MD at 12/11/2017 6:33 AM WSN:[id number]
--- NOTE | 2017-12-11 07:42 | General Surgery Progress Note ---
Subjective Progress Notes Subjective "I'm still hurting", denies SOB, able to speak in sentences. Physical Exam Vital Signs Date Time Temp Pulse Resp B/P (MAP) Pulse Ox O2 Delivery O2 Flow Rate FiO2 12/11/17 05:59 68 18 12/11/17 05:50 94 Nasal Cannula 5.0 12/11/17 04:45 97.7 167/102 (123) General Appearance: Alert, Awake, No Acute Distress, Afebrile Neuro: No Gross deficits Eyes: PERRLA ENT: Moist Mucous Membranes Cardiovascular: Regular Rate and Rhythm Respiratory: No Respiratory Distress (Decreased breath sounds bilaterally, IS only to 500 ml), Other GI: Soft and Non-Tender Extremities: Soft and Non Tender Psych: Alert & Oriented X3, Appropriate Mood & Affect Result Diagram: 12/11/17 0512/11/17 05 ABG with PO2 of 42 and 80% O2 saturation. pH and pCO2 WNL. Imaging Increasing RLL atelectasis, no increase in effusion. Patchy infiltrates bilaterally. Monitor Interpretation: Normal Sinus Rhythm Assessment and Plan Problems: (1) Abrasions of multiple sites Status: Acute Assessment & Plan: 12/09/17: Received tetanus booster in the past year, Bacitracin to wounds (2) Hemothorax, right Status: Acute Assessment & Plan: 12/09/17: Small hemothorax noted on CT not appreciated on this am CXR, Will recheck CXR in am, H&H stable. 12/10/17: CXR with increase in effusion. Hct down but likely related to IV hydration. Will get repeat CT chest today. Will place chest tube if this fluid appears as blood. Repeat CBC in am. 12/10/17: Chest CT reviewed, will continue to hold off on chest drain, though if increase further than will need pig tail or chest tube. Recheck CXR in am. Radiologist reports 1. Multiple patchy areas of consolidation with an upper lung zone predominance, new from 12/08/2017 most consistent with evolving lung contusions. Multifocal pneumonia is also possible. 2. A small right pleural effusion is larger. A trace left pleural effusion is new. Neither appears hemorrhagic. 3. Previously described fractures including multiple right rib fractures on the right clavicular shaft fracture are stable. 4. Mild coronary artery calcifications. 12/11/17: No significant increase in effusion, if he requires intubation then will place pleural drain. Hct stable (3) Multiple fractures of ribs, right side, initial encounter for closed fracture Status: Acute Assessment & Plan: . 12/09/17: Pain control good with epidural, voiding okay. Continue IS and Vigorous pulmonary toilet. 12/10/17: Having increased chest wall pain this am. Anesthesia will re bolus epidural. Once pain under better control, will need vigorous pulmonary toilet. 12/11/17: Added Gabapentin, IV Tylenol and increased dose of oxycodone for pain control. Despite this he is developing progressive RLL atelectasis and now hypoxemia with increasing O2 requirement. Bilateral patchy infiltrates noted. Afebrile with normal WBC. Will transfer to ICU with high flow NC. Bolus epidural, Intensify pulmonary toilet. Good chance he will require intubation, mechanical ventilation, and even bronchoscopy. (4) Closed right clavicular fracture Status: Acute Assessment & Plan: 12/09/17: continue to use sling as we mobilize, ice pack, continue Percocet for pain control. 12/10/17: continue with same plan. 12/11/17: less edema, continue ice and sling. (5) Depression Status: Chronic Assessment & Plan: Continue home Zoloft. (6) Acute on chronic respiratory failure with hypoxia Status: Acute Assessment & Plan: 12/11/17: Transfer to ICU, intensify pulmonary toilet, High flow nasal cannula, continue Albuterol q 4 h, if no improvement then intubation , and mechanical ventilation. Time Spent: > 30 min Exam Sepsis Risk: No Definite Risk Problem Qualifiers (1) Closed right clavicular fracture: Encounter type: initial encounter Clavicle location: unspecified part of clavicle Fracture alignment: displaced Qualified Codes: S42.001A - Fracture of unspecified part of right clavicle, initial encounter for closed fracture LALI RENE MD Dec 11, 2017 07:42
[2017-12-11] MEDS ORDERED: FUROSEMIDE 40 MG/4 ML VIAL IVP ONE (08:05)
[2017-12-11] MEDS ORDERED: GABAPENTIN 100 MG CAP PO SCH (09:00)
[2017-12-11] MEDS ORDERED: SUCCINYLCHOL CHL 200MG/10ML VL IVP ONE (09:20)
[2017-12-11] MEDS ORDERED: MIDAZOLAM 2 MG/2 ML VIAL IVP ONE ×2 (09:40→10:25)
[2017-12-11] MEDS ORDERED: PROPOFOL(*)1000 MG/100 ML VIAL 100 ML IV PRN (09:44)
[2017-12-11] MEDS ORDERED: LORazepam 2 MG/ML VIAL IVP PRN (09:45)
[2017-12-11] MEDS ORDERED: LORazepam 1 MG TAB PO PRN (09:45)
[2017-12-11] MEDS ORDERED: fentaNYL CITR 250 MCG/5 ML AMP 1,500 MCG in NS 0.9% 150 ML BAG 120 ML IV SCH (10:05)
[2017-12-11] MEDS ORDERED: NS 0.9% IVP PRN (10:10)
[2017-12-11] MEDS ORDERED: [UNRECOGNIZED DRUG - OTHER] IVP PRN (10:10)
--- NOTE | 2017-12-11 10:19 | RADIOLOGY IMAGING REPORT ---
FACILITY: [facility] [place] PATIENT NAME: Helena Nuñez : 1960 MR: [id number] V: [id number] EXAM DATE: ORDERING PHYSICIAN: CARSON ANDERSON TECHNOLOGIST: Location: [facility] - [place] Patient: Helena Nuñez : 1960 Visit/Account:[id number] Date of Sevice: 12/11/2017 Study: Single portable view of the chest. Indication: Status post intubation Comparison study: December 11, 2017 6:12 AM Technique: Single AP view of the chest and shows presence of an endotracheal tube with the tip 4 cm a rae the level of the chevy. There is nasogastric tube with the tip overlying the stomach. There are diffuse patchy infiltrates throughout the lung cain. These are unchanged from the previo us study. There is no evidence of pneumothorax. There is no definite pleural effusion noted. IMPRESSION: Status post intubation. Bilateral patchy infiltrates without significant change. Report Dictated By: Nasir Kruse at 12/11/2017 10:14 AM Report E-Signed By: Nasir Kruse at 12/11/2017 10:15 AM WSN:[id number]
[2017-12-11] MEDS ORDERED: [UNRECOGNIZED DRUG - OTHER] IV SCH (11:00)
[2017-12-11] MEDS ORDERED: NS 0.9% IV SCH (11:00)
[2017-12-11] MEDS ORDERED: 1: MULTIVITAMINS(*) 10 ML VIAL 10 ML, FOLIC ACID(*) 50 MG/10 ML INJ 1 MG, THIAMINE HCL( IV SCH (11:00)
--- NOTE | 2017-12-11 11:23 | Medical Nutrition Therapy ---
Nutrition Anthropometrics Height (Inches): 72.00 Height (Calculated Centimeters: 182.416043 Weight (Pounds): 162 Weight (Calculated Kilograms): 73.567 BMI: 22 Timmy Nutrition Score: Adequate Timmy Nutrition Risk Score: 20 Dietary Referral Nutrition Risk Factors: Nutrition Risk Comment: Nutritional Diagnosis Nutritional Risk Acuity 1: Tube Feed Unstable, Pulm Fail Vent Past Medical History: Depression Nutritional Acuity: 1-High Nutrition Diagnosis: Inadequate Nutr. Support Nutrition Etiology: Physiological Causes Nutrition Problem/Etiology/Sym: Inadequatr nutr support R/t low volume of nutritional supplement AEB nutr supplment meeting Energy Requirement: 2300 ([place] X 1.25 AF) Protein Requirement: 73 (1gm/kg) Fluid Requirement: 2200 (30 ml/kg) Diet Type: NPO (Nothing by Mouth), Tube Feeding (TF) Nutrition Intervention: Incr diet as tolerated Nutritional Support Current Enteral / Parental: Tube Feeding Tube Feeding Formulas: Jevity 1cal/ml-Standard Current Tube Feeding Formula C: 10ml/hr Tube Feeding Supplement Streng: Full Feeding Route: FT Placed Oralgastric Current Duration: 24 Current Calories: 255 Current Protein: 11 Current Lipids Calories: 583 (22.1 mls propofol) Total Current Calories: 838 Recommended Enteral / Parental: Tube Feeding Recommended Tube Feeding Formu: Jevity 1cal/ml-Standard Recommended Tube Feeding Formu: increase to 70 ml/hr final rate Tube Feeding Supplement Streng: Full Recommended Duration: 24 Recommended Calories: 1781 Recommended Protein: 74 Recommended Lipids Calories: 583 (from propofol at 22.1mls/hr) Total Recommended Calories: 2364 Nutrition Monitoring & Eval Nutritional Goals Comment: TF will meet nutr needs until oral intake can meet needs. RD Patient Assessment Time: [address] Assessment Type: RD Assessment Patient Nutrition Acuity: 1-High Follow Up Date: Dec 12, 2017 Nutritional Comment: 12/09 Pt admitted after fall from horse for Abrasions, Hemothorax, Multiple fractures of ribs, and clavicular fracture. Lactate 2.5, Alb 4.5. Within normal wt range with BMI of 22.0. Receiving PARESH and consuming 100% of meals. Follow intake, labs, etc. DRT 12/11 Pt moved to ICU r/t respirtory failure. Pt is currently on [facility] vent and recieving propofol at 22.1mls/hr. Pt is on TF of jevity at 10ml/hr provideing 255 kcal with additional 583 kcal from Propofol. Current TF order is meeting 25% est kcal and 7% est protein needs. If pt is to remain on mech vent, recommend a final rate of 70 ml/hr which meets 100% est protein needs and 103% est karen needs with the current rate of propofol. Copies To Copies to: BARBRA CHATTERJEE MD, BETH Dec 11, 2017 11:22
[2017-12-11] MEDS: PROPOFOL(*)1000 MG/100 ML VIAL 100 ML IV PRN ×3 (11:54→20:08)
[2017-12-11] MEDS: ORAL SUCTION/CHLORHX/SWAB KIT MT SCH ×2 (12:01→20:31)
[2017-12-11] MEDS ORDERED: NS(*) 0.9% 500 ML BAG 500 ML ONE (12:04)
[2017-12-11] MEDS ORDERED: KETAMINE HCL 500 MG/5 ML VIAL IVP ONE (12:40)
[2017-12-11] MEDS ORDERED: KETAMINE HCL 500 MG/5 ML VIAL ONE (12:41)
[2017-12-11] MEDS ORDERED: MIDAZOLAM 1 MG/1 ML 10 ML IVP ONE (12:56)
[2017-12-11] MEDS ORDERED: MIDAZOLAM 1 MG/1 ML 10 ML ONE (13:05)
--- NOTE | 2017-12-11 13:07 | Hospitalist Consultation ---
History of Present Illness Requesting Physician Dr Collier Reason for Consult Alcohol withdrawal, vent management. Chief Complaint Acute hypoxic respiratory failure, Alcohol dependence History of Present Illness 57M presented 4 days ago after being thrown from horse. Has several R rib Fx, Fx R clavicle. Was transferred to ICU from floor this am after having greatly increased O2 needs.Pt was subsequently intubated and sedated when he did not tolerate BiPAP. Review of imaging shows developing lung contusion, pleural effusion on L and area of atelectasis which has progressed. Image 07.31 after intubation R lung field almost completely obscured. Pt to have bronch, R chest tube and central line per surgery. Secretions appear thick and cream colored. Pt with Hx of 2PPD smoking and reports drinks 8-12 beers daily with a shot or two as well. Our team was consulted fro withdrawal management as well as vent management. History Home Meds Reported Medications Montelukast Sodium (SINGULAIR) 10 Mg Tablet, 1 TAB PO QDAY, TAB 12/09/17 Sertraline Hcl (ZOLOFT) 100 Mg Tablet, 1 TAB PO QDAY, TAB 12/09/17 Discontinued Reported Medications Sertraline Hcl (ZOLOFT) 50 Mg Tablet, 1 TAB PO QDAY, TAB 03/23/17 Allergies: Coded Allergies: kiwi (Verified Allergy, Mild, THROAT SWELLS, 12/08/17) hydromorphone (Verified Adverse Reaction, Unknown, hot flashes, sweating, , 12/11/17) Uncoded Allergies: CEMENT NENANA (Allergy, Unknown, 04/29/13) Patient History: Patient reports no known family medical history. Hx Smoking: Yes Smoking Status: Current: Every Day Smoker Hx Alcohol Use: Yes Alcohol Use: Currently (daily per family) Hx Substance Use Disorder: No Review of Systems Other Unable to obtain 2/2 sedation and ventilation. Exam Vital Signs Vital Signs Date Time Temp Pulse Resp B/P (MAP) Pulse Ox O2 Delivery O2 Flow Rate FiO2 12/11/17 12:41 100.0 12/11/17 12:20 100.8 87 16 84/62 (69) 93 Mechanical Ventilator 12/11/17 07:42 35.0 Neuro: No Gross deficits ENT: Normal (ET tube) Neck: No Masses Cardiovascular: Regular Rate and Rhythm (tachycardia), No Edema Respiratory: Other (ventilated, R lung absent breath sounds lower 1/2 chest) GI: Abd Soft and Non-Tender : Normal (+ Pearson) Lymph: No Adenopathy Extremities: Warm, Pulses, Perfused Integumentary: Skin Intact without Lesion / Mass Medical Decision Making Data Points Result Diagram: 12/11/1752612/11/17526 Assessment and Plan Problems: (1) Acute respiratory failure with hypoxia Assessment & Plan: Intubated and ventilated on 07.31 am. Propofol and fentanyl for sedation/analgesia. Low peak pressures but difficult to oxygenate, sat 93% on 1.00 FiO2 PEEP 8 TV 500. Will reevaluate after CT is placed on R with another ABG. Current ABG correlates with pO2 60. Daily sedation vacation and SBT. (2) Alcohol dependence Assessment & Plan: Day before admission was last drink, Hx was related by as patient began to have respiratory issues 12.11, reportedly 12 pack + 1-2 shots daily. Monitor for withdrawal symptoms, CIWA, PRN Ativan, replace thiamine and folate. Denies Hx of withdrawal. (3) NICOTINE DEPENDENCE, CIGARETTES, UNCOMPLICATED Assessment & Plan: 2ppd smoker per , increased risks associated with intubation. (4) Closed right clavicular fracture Status: Acute Assessment & Plan: Per surgery, immobilize in sling, fentanyl for pain while sedated. (5) Right rib fracture Assessment & Plan: Per surgery, analgesia fentanyl while intubated. Condition Critical Critical Time Spent: 1st 30-74 Minutes Venous Thromboembolism Antithrombotics Is Pt On Any Antithrombotics?: No Exam Sepsis Risk: No Definite Risk Problem Qualifiers (1) Closed right clavicular fracture: Encounter type: initial encounter Clavicle location: unspecified part of clavicle Fracture alignment: displaced Qualified Codes: S42.001A - Fracture of unspecified part of right clavicle, initial encounter for closed fracture TROY YAO DO Dec 11, 2017 13:07
--- NOTE | 2017-12-11 13:44 | RADIOLOGY IMAGING REPORT ---
FACILITY: [facility] [place] PATIENT NAME: Helena Nuñez : 1960 MR: [id number] V: [id number] EXAM DATE: ORDERING PHYSICIAN: BARBRA CHATTERJEE TECHNOLOGIST: Location: [facility] Patient: Helena Nuñez : 1960 Visit/Account:[id number] Date of Sevice: 12/11/2017 Exam type: CHEST SINGLE AP History: post chest tube, central line and bronch Comparison: December 11, 2017 at 10:00 AM Findings: Theendotracheal tube is again noted with the distal tip projecting approximately 4.6 cm above the car jennifer. There is a right IJ catheter with the distal tip projects over the superior vena cava. There I s an NG/OG tube distal tip coiled over the left upper quadrant abdomen. Patchy areas of consolidation are again seen throughout the lungs although there is better aeration o f the right lung base when compared to the previous study. Cardiac silhouette remains unchanged.. IMPRESSION: 1. Support lines and tubes as described There are patchy areas of airspace consolidation seen throughout the lungs although there is better a eration of the right lung base when compared to this morning's examination Report Dictated By: Krista Almendarez MD at 12/11/2017 1:35 PM Report E-Signed By: Krista Almendarez MD at 12/11/2017 1:39 PM WSN:[email or web address]
--- NOTE | 2017-12-11 14:25 | Procedure Note ---
Central Line Procedure Note Indication for Central Line: IV meds, monitoring Consent Signed: Yes Central Line Lumen: Triple Central Line Procedure: Chlorhexidine Prep, Sterile Drapes Applied, Sterile Dressing Applied Central Line Position: R Internal Jugular Anesthesia Used: 1% Lidocaine CC's of Anesthesia: 5 Complications: None Central Line Post Position: Sutured, Confirmed Blood Return, Position Confirmed w/CXR Comment Central line position looks good on CXR. Chest Tube Procedure Note Reason for Chest Tube Right hemothorax/effusion Consent Signed: Yes Chest Tube Location: Right Lung Complications: None Anesthesia Used: 1% Lidocaine CC's of Anesthesia: 5 Chest Tube Size Fr.: 28 Chest Tube Suction: Pleura-Vac Chest Tube Secured: 0 Silk Suture Post Procedure Xray Ordered: Yes Comment Good position on CXR Additional Procedures Comment Bronchoscopy completed without problems. I visualized all primary bronchi as well as secondary bronchi. There was mucus in the airways and I suctioned this out and it was sent to the lab for Gram stain, aerobic, anaerobic cultures. I then performed lavage of his airways by injecting normal saline and aspirating it out. When this was completed his primary and secondary bronchi as well as trachea were free of mucus or other abnormalities. No other abnormalities were seen during this procedure. I did not perform a fluoroscopy examination of his bronchial tree due to the nature of this procedure in this critically ill patient. BARBRA CHATTERJEE MD Dec 11, 2017 14:25
[2017-12-11] MEDS: SERTRALINE HCL 50 MG TAB PO SCH (14:55)
[2017-12-11] MEDS: ENOXAPARIN 40 MG/0.4ML SYR SC SCH (14:56)
[2017-12-11] MEDS: PANTOPRAZOLE SOD 40 MG IV VIAL IVP SCH (14:56)
[2017-12-11] MEDS: NS 0.9% IV SCH ×2 (16:11→20:20)
[2017-12-11] MEDS: [UNRECOGNIZED DRUG - OTHER] IV SCH ×2 (16:11→20:20)
[2017-12-11] MEDS: IMIPENEM/CILASTA(*) 500MG VIAL 500 MG in NS(*) 0.9% 100 ML BAG 100 ML IVPB SCH (20:08)
[2017-12-11] MEDS ORDERED: ORAL SUCTION/CHLORHX/SWAB KIT MT SCH (21:00)
[2017-12-11] MEDS: KCL/D1/2NS 20 MEQ 1000 ML 1,000 ML IV SCH (22:41)
[2017-12-12] VITALS (94 sets, daily range): BP systolic 92–160; BP diastolic 49–108
[2017-12-12] MEDS: ALBUTEROL 2.5 MG/3 ML NEB NEB SCH ×2 (00:11→05:50)
[2017-12-12] MEDS: NS 0.9% IV SCH ×5 (01:07→21:02)
[2017-12-12] MEDS: [UNRECOGNIZED DRUG - OTHER] IV SCH ×2 (01:07→05:27)
[2017-12-12] MEDS: IMIPENEM/CILASTA(*) 500MG VIAL 500 MG in NS(*) 0.9% 100 ML BAG 100 ML IVPB SCH ×4 (01:28→20:18)
[2017-12-12] MEDS: PROPOFOL(*)1000 MG/100 ML VIAL 100 ML IV PRN ×4 (04:52→22:03)
[2017-12-12] MEDS: ACETAMINOPHEN(*)1000 MG/100 ML 100 ML IVPB SCH ×4 (05:27→23:47)
[2017-12-12 06:03] LABS: PLATELET COUNT, AUTOMATED 224 K/uL (150-450)
[2017-12-12] MEDS: KCL/D1/2NS 20 MEQ 1000 ML 1,000 ML IV SCH ×2 (06:20→20:20)
[2017-12-12] MEDS ORDERED: MAGNESIUM HYDROXIDE* 30ML UDCP PO PRN (06:50)
--- NOTE | 2017-12-12 07:02 | General Surgery Progress Note ---
Subjective Progress Notes Subjective Intubated, sedated Physical Exam Vital Signs Date Time Temp Pulse Resp B/P (MAP) Pulse Ox O2 Delivery O2 Flow Rate FiO2 12/12/17 06:30 100.0 89 10 113/74 (87) 92 Mechanical Ventilator 60.0 12/11/17 07:42 35.0 General Appearance: Other (Intubated/sedated) GI: Soft and Non-Tender Extremities: Warm, Perfused Result Diagram: 12/12/17 0545 12/12/17 0545 Monitor Interpretation: Normal Sinus Rhythm Assessment and Plan Problems: (1) Acute on chronic respiratory failure with hypoxia Status: Acute Assessment & Plan: 12/11/17: Transfer to ICU, intensify pulmonary toilet, High flow nasal cannula, continue Albuterol q 4 h, if no improvement then intubation , and mechanical ventilation. 12/12/17: Pt developed respiratory failure yesterday. Transferred to ICU and intubated yesterday, place a right chest tube, central line, and completed bronchoscopy. Started primaxin for PNA. Now stable. CXR this morning with right pneumothorax even with chest tube seemingly in good position and draining serous fluid. Not tidaling with vent and no obvious air leak on pleurovac. Turned up suction and will check CXR in 4 hours. If still with PTX, will place another chest tube anteriorly to evacuate pneumothorax. Started trophic TF via NG tube, gastric residuals are minimal. Will increase TF slowly to goal rate of 70ml/hr. Start bowel regimen today. Will stop sedation and wean vent as he tolerates. [facility] protocol for EtOH abuse. Banana bag for 3 days. Will discuss smoking cessation before going home. (2) Multiple fractures of ribs, right side, initial encounter for closed fracture Status: Acute Assessment & Plan: . 12/09/17: Pain control good with epidural, voiding okay. Continue IS and Vigorous pulmonary toilet. 12/10/17: Having increased chest wall pain this am. Anesthesia will re bolus epidural. Once pain under better control, will need vigorous pulmonary toilet. 12/11/17: Added Gabapentin, IV Tylenol and increased dose of oxycodone for pain control. Despite this he is developing progressive RLL atelectasis and now hypoxemia with increasing O2 requirement. Bilateral patchy infiltrates noted. Afebrile with normal WBC. Will transfer to ICU with high flow NC. Bolus epidural, Intensify pulmonary toilet. Good chance he will require intubation, mechanical ventilation, and even bronchoscopy. (3) Pneumothorax Status: Acute (4) Hemothorax, right Status: Acute Assessment & Plan: 12/09/17: Small hemothorax noted on CT not appreciated on this am CXR, Will recheck CXR in am, H&H stable. 12/10/17: CXR with increase in effusion. Hct down but likely related to IV hydration. Will get repeat CT chest today. Will place chest tube if this fluid appears as blood. Repeat CBC in am. 12/10/17: Chest CT reviewed, will continue to hold off on chest drain, though if increase further than will need pig tail or chest tube. Recheck CXR in am. Radiologist reports 1. Multiple patchy areas of consolidation with an upper lung zone predominance, new from 12/08/2017 most consistent with evolving lung contusions. Multifocal pneumonia is also possible. 2. A small right pleural effusion is larger. A trace left pleural effusion is new. Neither appears hemorrhagic. 3. Previously described fractures including multiple right rib fractures on the right clavicular shaft fracture are stable. 4. Mild coronary artery calcifications. 12/11/17: No significant increase in effusion, if he requires intubation then will place pleural drain. Hct stable (5) Closed right clavicular fracture Status: Acute Assessment & Plan: 12/09/17: continue to use sling as we mobilize, ice pack, continue Percocet for pain control. 12/10/17: continue with same plan. 12/11/17: less edema, continue ice and sling. (6) Abrasions of multiple sites Status: Acute Assessment & Plan: 12/09/17: Received tetanus booster in the past year, Bacitracin to wounds (7) Depression Status: Chronic Assessment & Plan: Continue home Zoloft. Condition Critical Time Spent: < 30 min Exam Sepsis Risk: Sepsis Risk Problem Qualifiers (1) Pneumothorax: Pneumothorax type: postprocedural Qualified Codes: J95.811 - Postprocedural pneumothorax (2) Closed right clavicular fracture: Encounter type: initial encounter Clavicle location: unspecified part of clavicle Fracture alignment: displaced Qualified Codes: S42.001A - Fracture of unspecified part of right clavicle, initial encounter for closed fracture (3) Depression: Depression Type: unspecified Qualified Codes: F32.9 - Major depressive disorder, single episode, unspecified BARBRA CHATTERJEE MD Dec 12, 2017 07:02
--- NOTE | 2017-12-12 07:10 | RADIOLOGY IMAGING REPORT ---
FACILITY: [facility] [place] PATIENT NAME: Helena Nuñez : 1960 MR: [id number] V: [id number] EXAM DATE: ORDERING PHYSICIAN: BARBRA CHATTERJEE TECHNOLOGIST: Location: [facility] Patient: Helena Nuñez : 1960 Visit/Account:[id number] Date of Sevice: 12/12/2017 CHEST SINGLE AP Indication: Respiratory failure. Intubated.. Comparison: December 11, 2017. Findings: Right-sided chest tube remains in place. Moderate right apical pneumothorax which is either new or in creased since prior exam. Endotracheal tube, nasogastric tube, and right internal jugular central line are unchanged. Heart size within normal limits. Patchy infiltrate within both lungs are not significantly changed. No definitive pleural effusion. No visualized left-sided pneumothorax. Note is made of right-sided rib fractures. IMPRESSION: 1. Moderate size right apical pneumothorax. No definitive pneumothorax seen on the prior exam. 2. Exam is otherwise grossly unchanged. Results were discussed with BARBRA CHATTERJEE at 12/12/2017 7:06 AM. Report Dictated By: Neal Lea MD at 12/12/2017 6:48 AM Report E-Signed By: Neal Lea MD at 12/12/2017 7:06 AM WSN:[id number]
[2017-12-12] MEDS: SERTRALINE HCL 50 MG TAB PO SCH (08:42)
[2017-12-12] MEDS: POLYETHYLENE GLYCOL 17 GM PKT PO SCH (08:42)
[2017-12-12] MEDS: ORAL SUCTION/CHLORHX/SWAB KIT MT SCH ×2 (08:43→20:18)
[2017-12-12] MEDS: ENOXAPARIN 40 MG/0.4ML SYR SC SCH (08:43)
[2017-12-12] MEDS: DOCUSATE SOD LIQ 100 MG/10 ML UDC PO SCH ×2 (08:44→20:18)
[2017-12-12] MEDS: PANTOPRAZOLE SOD 40 MG IV VIAL IVP SCH (08:44)
[2017-12-12] MEDS: [UNRECOGNIZED DRUG - OTHER] IV SCH ×3 (10:04→21:02)
[2017-12-12] MEDS ORDERED: FUROSEMIDE 40 MG/4 ML VIAL IVP ONE (10:30)
--- NOTE | 2017-12-12 10:30 | Hospitalist Progress Note ---
Subjective Progress Notes Subjective Sedated on ventilator. Chest tube in place. Physical Exam Vital Signs Date Time Temp Pulse Resp B/P (MAP) Pulse Ox O2 Delivery O2 Flow Rate FiO2 12/12/17 09:44 60.0 12/12/17 08:58 82 12/12/17 08:30 99.5 14 118/80 (93) 94 Mechanical Ventilator 12/11/17 07:42 35.0 Intake and Output 12/13/17 07:00 Intake Total 115 ml Output Total 400 ml Balance -285 ml IV Total 115 ml Output Urine Total 400 ml General Appearance: Other (sedated) Cardiovascular: Other (Regular slightly tachycardic) Respiratory: Other (rales left anterolateral cain/diminished on right) Chest: Other (right chest tube in place) Extremities: Warm, Perfused Result Diagram: 12/12/17 0545 12/12/17 0545 Monitor Interpretation: Normal Sinus Rhythm Assessment and Plan Problems: (1) Acute respiratory failure with hypoxia Assessment & Plan: Intubated and ventilated. Propofol and fentanyl for sedation /analgesia. Low peak pressures, but initially difficult to oxygenate. Improved somewhat with respect to FiO2. CXR shows right-sided pneumothorax despite chest tube. Will discuss with Dr. Collier. (2) Alcohol dependence Assessment & Plan: Day before admission was last drink - history was related by . Reportedly 12 pack of beer plus 1-2 shots whisky daily. He is now covered with propofol. Monitor for withdrawal symptoms. Supplement thiamine and folate. (3) NICOTINE DEPENDENCE, CIGARETTES, UNCOMPLICATED Assessment & Plan: 2ppd smoker per , increased risks associated with intubation. (4) Closed right clavicular fracture Status: Acute Assessment & Plan: Per surgery, immobilize in sling, fentanyl for pain while sedated. (5) Right rib fracture Assessment & Plan: Per surgery, analgesia fentanyl while intubated. Exam Sepsis Risk: No Definite Risk Problem Qualifiers (1) Closed right clavicular fracture: Encounter type: initial encounter Clavicle location: unspecified part of clavicle Fracture alignment: displaced Qualified Codes: S42.001A - Fracture of unspecified part of right clavicle, initial encounter for closed fracture DIAN REDMOND MD Dec 12, 2017 10:30
--- NOTE | 2017-12-12 10:44 | Procedure Note ---
Chest Tube Procedure Note Reason for Chest Tube Right pneumothorax Consent Signed: Yes Chest Tube Location: Right Lung Complications: None Anesthesia Used: 1% Lidocaine CC's of Anesthesia: 5 Chest Tube Size Fr.: 28 Chest Tube Suction: Pleura-Vac Chest Tube Secured: 0 Silk Suture Post Procedure Xray Ordered: Yes BARBRA CHATTERJEE MD Dec 12, 2017 10:43
[2017-12-12] MEDS ORDERED: MULTIVITAMINS(*) 10 ML VIAL 10 ML, THIAMINE HCL(*) 200 MG/2 ML IN 100 MG, FOLIC ACID(*)... IV PRN (11:00)
--- NOTE | 2017-12-12 11:01 | Medical Nutrition Therapy ---
Nutrition Anthropometrics Height (Inches): 72.00 Height (Calculated Centimeters: 182.169114 Weight (Pounds): 163 Weight (Calculated Kilograms): 74.077 BMI: 22 Timmy Nutrition Score: Adequate Timmy Nutrition Risk Score: 17 Dietary Referral Nutrition Risk Factors: Nutrition Risk Comment: Nutritional Diagnosis Nutritional Risk Acuity 1: Tube Feed Unstable, Pulm Fail Vent Past Medical History: Depression Nutritional Acuity: 1-High Nutrition Diagnosis: Increased Nutrient Needs Nutrition Etiology: Physiological Causes Nutrition Problem/Etiology/Sym: AEB rib fx, respiratory failure with mech vent Energy Requirement: 2300 ([place] X 1.25 AF) Protein Requirement: 73 (1gm/kg) Fluid Requirement: 2200 (30 ml/kg) Diet Type: NPO (Nothing by Mouth), Tube Feeding (TF) Nutrition Intervention: Incr diet as tolerated Nutritional Support Current Enteral / Parental: Tube Feeding Tube Feeding Formulas: Jevity 1cal/ml-Standard Current Tube Feeding Formula C: 10ml/hr increast 10ml/hr q 4 hrs to final rate 70ml/hr Tube Feeding Supplement Streng: Full Feeding Route: FT Placed Oralgastric Current Duration: 24 Current Calories: 1781 (based on final rate of 70ml/hr) Current Protein: 74 (based on final rate of 70ml/hr) Current Lipids Calories: 348 (13.2mls propofol) Total Current Calories: 2129 Recommended Tube Feeding Formu: increase to 70 ml/hr final rate Nutrition Monitoring & Eval Nutritional Goals Comment: TF will meet nutr needs until oral intake can meet needs RD Patient Assessment Time: [address] Assessment Type: RD Re-Assessment Patient Nutrition Acuity: 1-High Follow Up Date: Dec 15, 2017 Nutritional Comment: 12/09 Pt admitted after fall from horse for Abrasions, Hemothorax, Multiple fractures of ribs, and clavicular fracture. Lactate 2.5, Alb 4.5. Within normal wt range with BMI of 22.0. Receiving PARESH and consuming 100% of meals. Follow intake, labs, etc. DRT 12/11 Pt moved to ICU r/t respirtory failure. Pt is currently on mech vent and recieving propofol at 22.1mls/hr. Pt is on TF of jevity at 10ml/hr provideing 255 kcal with additional 583 kcal from Propofol. Current TF order is meeting 25% est kcal and 7% est protein needs. If pt is to remain on mech vent, recommend a final rate of 70 ml/hr which meets 100% est protein needs and 103% est karen needs with the current rate of propofol. 12/12 TF increasing to final rate of 70ml/hr. Currently recieving 20ml/hr and tolerating it well with minimal residuals. Propofol has decreased to 13.2. Final TF will meet 103% est protein needs and 93% est kcal needs with propofol at 13.2. Will cont to monitor. KENISHA RAGLAND Dec 12, 2017 11:01
--- NOTE | 2017-12-12 11:49 | RADIOLOGY IMAGING REPORT ---
[place] [facility] [place] NAME: Helena Nuñez : 1960 MR: [id number] V: [id number] EXAM DATE: ORDERING PHYSICIAN: BARBRA CHATTERJEE TECHNOLOGIST: Location: [facility] [place] Patient: Helena Nuñez : 1960 Visit/Account:[id number] Date of Sevice: 12/12/2017 CHEST SINGLE AP HISTORY: Right chest tube. Right pneumothorax. COMPARISON: Chest x-ray December 12, 556 hours. FINDINGS: Cardiomediastinal contours: The heart and mediastinal structures are shifted to the left. Lungs and pleura: Comparison the previous study shows no change in the size of the right pneumothorax . The heart and mediastinal structures are shifted to the left suggesting tension pneumothorax. The right chest tube is in stable position. There is parenchymal density throughout both lungs. It is similar to was noted on the previous exam. Bones/soft tissues: There are multiple rib fractures on the right side. They are likely the cause of the patient's right pneumothorax. Catheters: The endotracheal tube, nasogastric tube and right internal jugular vein catheter are in st able position. IMPRESSION: 1. Again noted is a pneumothorax on the right side. The heart and mediastinal structures may be sli ghtly shifted slightly more to the right suggesting a mild degree of tension. Perhaps the right ches t tube is in the patient's major fissure and functioning at less than optimal opacity. 2. Satisfactory position of endotracheal tube, nasogastric tube and right internal jugular vein cath eter. 3. Diffuse opacities throughout both lung cain. 4. Numerous rib fractures right side. Results were called to BARBRA CHATTERJEE M.D. At 12/12/2017 11:45 AM. Report Dictated By: Doni Blake MD at 12/12/2017 11:18 AM Report E-Signed By: Doni Blake MD at 12/12/2017 11:45 AM WSN:[email or web address]
--- NOTE | 2017-12-12 13:15 | RADIOLOGY IMAGING REPORT ---
FACILITY: [facility] - [place] PATIENT NAME: Helena Nuñez : 1960 MR: [id number] V: [id number] EXAM DATE: ORDERING PHYSICIAN: BARBRA CHATTERJEE TECHNOLOGIST: Location: [facility] [place] Patient: Helena Nuñez : 1960 Visit/Account:[id number] Date of Sevice: 12/12/2017 CHEST SINGLE AP HISTORY: Right-sided pneumothorax. Right chest tube. COMPARISON: Chest x-ray December 12, 2017. FINDINGS: Cardiomediastinal contours: The heart size is normal. Lungs and pleura: A new right chest tube is been placed. This is resulted in complete resolution of the previously noted right-sided pneumothorax. The mediastinal structures are now midline. The othe r right chest tube is unchanged in position. There is diffuse parenchymal density throughout both isabel ng cain that is stable. Bones/soft tissues: There are no findings of a fracture. Catheters: The endotracheal tube, nasogastric tube and right internal jugular vein catheter are stabl e in position. IMPRESSION: 1. Placement of a second right chest tube followed by subsequent complete resolution of the previous ly noted tension pneumothorax. The mediastinal structures are now midline. 2. Diffuse groundglass and coarse interstitial markings throughout both lung cain. 3. Stable position of endotracheal tube, nasogastric tube and right internal jugular vein catheter. Report Dictated By: Doni Blake MD at 12/12/2017 1:08 PM Report E-Signed By: Doni Blake MD at 12/12/2017 1:10 PM WSN:[email or web address]
[2017-12-12] MEDS ORDERED: NS(*) 0.9% 500 ML BAG 500 ML ONE ×3 (13:47→20:25)
[2017-12-12] MEDS: FOLIC ACID 50 MG/10 ML 1ML INJ IV SCH (15:36)
[2017-12-12] MEDS: THIAMINE HCL 200 MG/2 ML INJ IVP SCH (15:36)
--- NOTE | 2017-12-12 18:25 | Procedure Note ---
ART Line Procedure Note Consent Signed: Yes ART Line Indication: Hemodynamic Monitoring, Other (Blood Gas measurements) ART Line Lumen: Single Line Procedure: Chlorhexidine Prep, Sterile Drapes Applied, Sterile Dressing Applied Line Post Position: Sutured, Confirmed Blood Return Comment Left Femoral Arterial Line placed after failed attempt at bilateral radial arterial line placement with ultrasound guidance. Pt has been receiving ABG draws from the radial sites. Has smoking hx. No ischemic concerns at this time. DORCAS ROSAS MD Dec 12, 2017 18:25
[2017-12-13] VITALS (88 sets, daily range): BP systolic 93–158; BP diastolic 48–81
[2017-12-13] MEDS: IMIPENEM/CILASTA(*) 500MG VIAL 500 MG in NS(*) 0.9% 100 ML BAG 100 ML IVPB SCH ×4 (01:39→18:58)
[2017-12-13] MEDS: PROPOFOL(*)1000 MG/100 ML VIAL 100 ML IV PRN ×5 (03:56→22:14)
[2017-12-13 05:33] LABS: PLATELET COUNT, AUTOMATED 234 K/uL (150-450)
[2017-12-13] MEDS: ACETAMINOPHEN(*)1000 MG/100 ML 100 ML IVPB SCH ×4 (05:41→23:50)
--- NOTE | 2017-12-13 06:01 | RADIOLOGY IMAGING REPORT ---
FACILITY: [facility] PATIENT NAME: Helena Nuñez : 1960 MR: [id number] V: [id number] EXAM DATE: ORDERING PHYSICIAN: BARBRA CHATTERJEE TECHNOLOGIST: [place] [facility] [place] Patient: Helena Nuñez : 1960 Visit/Account:[id number] Date of Sevice: 12/13/2017 CHEST SINGLE AP 12/13/2017 05:00 hours. HISTORY: Right rib fracture. Effusion. Pneumothorax. Intubated. COMPARISON: 12/12/2017 and studies dating to 02/08/2008. TECHNIQUE: Portable AP semiupright view of the chest. FINDINGS: Tubes/lines/hardware: Endotracheal tube terminates 5.5 cm above the chevy. NG or OG tube terminates off the inferior x-ray, at least as far as the body of the stomach. Right IJ catheter terminates in t he mid superior vena cava. There are 2 right-sided chest tubes. There are external chest leads. Pulmonary: No pneumothorax. No change in aeration of the right lung or the left lower lung. There has been progression of opacity in the left upper lung. No pleural effusion. Cardiomediastinal: Cardiac and mediastinal silhouettes are within normal limits. Bones/soft tissues: No acute osseous abnormality. There are multiple right-sided rib fractures. There is a right clavicular fracture. There is a healed left clavicle fracture. The visible abdomen is nor mal. IMPRESSION: 1. Diffuse airspace opacities with mild progression within the left upper lung, although potentially due to the depth of inspiration. 2. No pneumothorax. 3. Tubes and lines as above. Report Dictated By: Shara Lyman at 12/13/2017 5:52 AM Report E-Signed By: Shara Lyman at 12/13/2017 5:56 AM WSN:[id number]
--- NOTE | 2017-12-13 07:17 | General Surgery Progress Note ---
Subjective Progress Notes Subjective Intubated/sedated Physical Exam Vital Signs Date Time Temp Pulse Resp B/P (MAP) Pulse Ox O2 Delivery O2 Flow Rate FiO2 12/13/17 06:30 81 20 109/53 (71) 96 Mechanical Ventilator 50.0 12/13/17 06:15 100.2 12/11/17 07:42 35.0 General Appearance: Other (Intubated/sedated) Cardiovascular: Regular Rate and Rhythm Respiratory: Other (Coarse BS bilaterally) Chest: Other (Chest tubes to suction, no air leak, both are tidaling, minimal out from anterior tube, posterior tube draining 200cc serosanguinous fluid) GI: Other (Soft) Extremities: Warm, Perfused Result Diagram: 12/13/17 0508 12/13/17 0508 Monitor Interpretation: Normal Sinus Rhythm Assessment and Plan Problems: (1) Acute on chronic respiratory failure with hypoxia Status: Acute Assessment & Plan: 12/11/17: Transfer to ICU, intensify pulmonary toilet, High flow nasal cannula, continue Albuterol q 4 h, if no improvement then intubation , and mechanical ventilation. 12/12/17: Pt developed respiratory failure yesterday. Transferred to ICU and intubated yesterday, place a right chest tube, central line, and completed bronchoscopy. Started primaxin for PNA. Now stable. CXR this morning with right pneumothorax even with chest tube seemingly in good position and draining serous fluid. Not tidaling with vent and no obvious air leak on pleurovac. Turned up suction and will check CXR in 4 hours. If still with PTX, will place another chest tube anteriorly to evacuate pneumothorax. Started trophic TF via NG tube, gastric residuals are minimal. Will increase TF slowly to goal rate of 70ml/hr. Start bowel regimen today. Will stop sedation and wean vent as he tolerates. [facility] protocol for EtOH abuse. Banana bag for 3 days. Will discuss smoking cessation before going home. 12/13/17: Pt developed tension PTX yesterday in spite of chest tube present and a second chest tube was placed anteriorly. He has also developed ARDS. He is on a lower tidal volume with faster respiratory rate to avoid lung injury to non -compliant pulmonary segments. He is stable at the moment. CXR this morning c/ w worsening ARDS but no PTX and chest tubes, ETT, central line are in good position. Will place chest tubes to water seal today and check CXR on water seal. Will resume trophic TF via NG tube and follow gastric residuals. If tolerates this today with minimal gastric residuals then will increase feedings later today. Continue bowel regimen. Will conduct daily sedation vacations and work him out on the vent to prevent respiratory muscle atrophy. Continue aggressive pulmonary hygiene, lovenox, PPI. Will have a low threshold to transfer to [facility] for multidisciplinary vent management if we start to see signs of ventilatory trouble, decreasing compliance, problems oxygenating him, etc. I discussed this with his family who is ever-present at his bedside and they seem agreeable with this plan for now but they too would like to have a low threshold to transfer him. (2) Multiple fractures of ribs, right side, initial encounter for closed fracture Status: Acute Assessment & Plan: . 12/09/17: Pain control good with epidural, voiding okay. Continue IS and Vigorous pulmonary toilet. 12/10/17: Having increased chest wall pain this am. Anesthesia will re bolus epidural. Once pain under better control, will need vigorous pulmonary toilet. 12/11/17: Added Gabapentin, IV Tylenol and increased dose of oxycodone for pain control. Despite this he is developing progressive RLL atelectasis and now hypoxemia with increasing O2 requirement. Bilateral patchy infiltrates noted. Afebrile with normal WBC. Will transfer to ICU with high flow NC. Bolus epidural, Intensify pulmonary toilet. Good chance he will require intubation, mechanical ventilation, and even bronchoscopy. (3) Pneumothorax Status: Acute (4) Hemothorax, right Status: Acute Assessment & Plan: 12/09/17: Small hemothorax noted on CT not appreciated on this am CXR, Will recheck CXR in am, H&H stable. 12/10/17: CXR with increase in effusion. Hct down but likely related to IV hydration. Will get repeat CT chest today. Will place chest tube if this fluid appears as blood. Repeat CBC in am. 12/10/17: Chest CT reviewed, will continue to hold off on chest drain, though if increase further than will need pig tail or chest tube. Recheck CXR in am. Radiologist reports 1. Multiple patchy areas of consolidation with an upper lung zone predominance, new from 12/08/2017 most consistent with evolving lung contusions. Multifocal pneumonia is also possible. 2. A small right pleural effusion is larger. A trace left pleural effusion is new. Neither appears hemorrhagic. 3. Previously described fractures including multiple right rib fractures on the right clavicular shaft fracture are stable. 4. Mild coronary artery calcifications. 12/11/17: No significant increase in effusion, if he requires intubation then will place pleural drain. Hct stable (5) Closed right clavicular fracture Status: Acute Assessment & Plan: 12/09/17: continue to use sling as we mobilize, ice pack, continue Percocet for pain control. 12/10/17: continue with same plan. 12/11/17: less edema, continue ice and sling. (6) Abrasions of multiple sites Status: Acute Assessment & Plan: 12/09/17: Received tetanus booster in the past year, Bacitracin to wounds (7) ARDS (adult respiratory distress syndrome) Status: Acute (8) Depression Status: Chronic Assessment & Plan: Continue home Zoloft. (9) Tension pneumothorax Status: Resolved Condition Critical Time Spent: < 30 min Exam Sepsis Risk: No Definite Risk Problem Qualifiers (1) Pneumothorax: Pneumothorax type: postprocedural Qualified Codes: J95.811 - Postprocedural pneumothorax (2) Closed right clavicular fracture: Encounter type: initial encounter Clavicle location: unspecified part of clavicle Fracture alignment: displaced Qualified Codes: S42.001A - Fracture of unspecified part of right clavicle, initial encounter for closed fracture (3) Depression: Depression Type: unspecified Qualified Codes: F32.9 - Major depressive disorder, single episode, unspecified BARBRA CHATTERJEE MD Dec 13, 2017 07:17
[2017-12-13] MEDS ORDERED: FUROSEMIDE 40 MG/4 ML VIAL IVP ONE (08:05)
[2017-12-13] MEDS: [UNRECOGNIZED DRUG - OTHER] IV SCH (08:25)
[2017-12-13] MEDS: NS 0.9% IV SCH (08:25)
[2017-12-13] MEDS ORDERED: KCL (*) 20 MEQ/100 ML PREMIX 100 ML IV SCH (08:30)
[2017-12-13] MEDS: PANTOPRAZOLE SOD 40 MG IV VIAL IVP SCH (08:51)
[2017-12-13] MEDS: SERTRALINE HCL 50 MG TAB PO SCH (08:51)
[2017-12-13] MEDS: ORAL SUCTION/CHLORHX/SWAB KIT MT SCH ×2 (08:51→21:07)
[2017-12-13] MEDS: DOCUSATE SOD LIQ 100 MG/10 ML UDC PO SCH ×2 (08:51→21:07)
[2017-12-13] MEDS: ENOXAPARIN 40 MG/0.4ML SYR SC SCH (08:52)
[2017-12-13] MEDS: POLYETHYLENE GLYCOL 17 GM PKT PO SCH (08:52)
[2017-12-13] MEDS: KCL 20 MEQ/50 ML PREMIX 50 ML IV SCH ×2 (09:21→11:38)
--- NOTE | 2017-12-13 09:44 | RADIOLOGY IMAGING REPORT ---
FACILITY: [facility] [place] PATIENT NAME: Helena Nuñez : 1960 MR: [id number] V: [id number] EXAM DATE: ORDERING PHYSICIAN: BARBRA CHATTERJEE TECHNOLOGIST: Location: [facility] Patient: Helena Nuñez : 1960 Visit/Account:[id number] Date of Sevice: 12/13/2017 CHEST SINGLE AP Indication: Desaturation. Chest tubes on waterseal. Comparison: 12/13/2017 at 5:19 AM Findings: Endotracheal tube and nasogastric tube are unchanged. Right internal jugular central line is unchange d. There are 2 right-sided chest tubes which appear unchanged in position. There are francisco lobar areas of infiltrate/consolidation without significant change from this morning's exam. No evidence of pneumothorax. No definite pleural effusion. Heart size is within normal limits. Mediastinal contours are unchanged. At least one right-sided rib fracture is seen. IMPRESSION: 1. Lines and catheters as above. 2. Patchy francisco lobar infiltrates without significant change from earlier this morning. 3. No evidence of pneumothorax with chest tubes to waterseal. Report Dictated By: Candelario Torres at 12/13/2017 9:37 AM Report E-Signed By: Candelario Torres at 12/13/2017 9:40 AM WSN:[id number]
--- NOTE | 2017-12-13 11:16 | Medical Nutrition Therapy ---
Nutrition Anthropometrics Height (Inches): 72.00 Height (Calculated Centimeters: [phone] Weight (Pounds): 165 Weight (Calculated Kilograms): 74.984 BMI: 22 Timmy Nutrition Score: Adequate Timmy Nutrition Risk Score: 17 Dietary Referral Nutrition Risk Factors: Nutrition Risk Comment: Nutritional Diagnosis Nutritional Risk Acuity 1: Tube Feed Unstable, Pulm Fail Vent Past Medical History: Depression Nutritional Acuity: 1-High Nutrition Diagnosis: Increased Nutrient Needs Nutrition Etiology: Physiological Causes Nutrition Problem/Etiology/Sym: AEB rib fx, respiratory failure with mech vent Energy Requirement: 2300 ([place] X 1.25 AF) Protein Requirement: 73 (1gm/kg) Fluid Requirement: 2200 (30 ml/kg) Diet Type: NPO (Nothing by Mouth), Tube Feeding (TF) Nutrition Intervention: Incr diet as tolerated Nutritional Support Current Enteral / Parental: Tube Feeding Tube Feeding Formulas: Jevity 1cal/ml-Standard Current Tube Feeding Formula C: 10ml/hr Tube Feeding Supplement Streng: Full Feeding Route: FT Placed Oralgastric Current Duration: 24 Current Calories: 384 Current Protein: 11 Current Lipids Calories: 583 (from propofol at 22.1 mls/hr) Total Current Calories: 967 Recommended Tube Feeding Formu: increase to 70 ml/hr final rate Nutrition Monitoring & Eval Nutritional Goals Comment: TF will meet nutr needs until oral intake can meet needs. RD Patient Assessment Time: [address] Assessment Type: RD Re-Assessment Patient Nutrition Acuity: 1-High Follow Up Date: Dec 14, 2017 Nutritional Comment: 12/09 Pt admitted after fall from horse for Abrasions, Hemothorax, Multiple fractures of ribs, and clavicular fracture. Lactate 2.5, Alb 4.5. Within normal wt range with BMI of 22.0. Receiving PARESH and consuming 100% of meals. Follow intake, labs, etc. DRT 12/11 Pt moved to ICU r/t respirtory failure. Pt is currently on mech vent and recieving propofol at 22.1mls/hr. Pt is on TF of jevity at 10ml/hr provideing 255 kcal with additional 583 kcal from Propofol. Current TF order is meeting 25% est kcal and 7% est protein needs. If pt is to remain on mech vent, recommend a final rate of 70 ml/hr which meets 100% est protein needs and 103% est karen needs with the current rate of propofol. 12/12 TF increasing to final rate of 70ml/hr. Currently recieving 20ml/hr and tolerating it well with minimal residuals. Propofol has decreased to 13.2. Final TF will meet 103% est protein needs and 93% est kcal needs with propofol at 13.2. Will cont to monitor. 12/13 TF has been decreased to 10ml/hr. Pt cont mech vent and on propofol. Pt has new dx of ARDS. TF + propofol is meeting 42% of kccal and 7% of protein needs. Recommend slowly increased back to final rate of 70 to meet nutr needs when pt is able. Cont to monitor. KENISHA DAVIS Dec 13, 2017 11:16
--- NOTE | 2017-12-13 11:30 | Hospitalist Progress Note ---
Subjective Progress Notes Subjective Pt stable on the vent overnight. Physical Exam Vital Signs Date Time Temp Pulse Resp B/P (MAP) Pulse Ox O2 Delivery O2 Flow Rate FiO2 12/13/17 11:15 99 Mechanical Ventilator 50.0 12/13/17 11:09 89 12/13/17 10:00 100.0 22 119/81 (94) 12/11/17 07:42 35.0 Intake and Output 12/14/17 07:00 Intake Total 298.3 ml Output Total 2130 ml Balance -1831.7 ml IV Total 298.3 ml Output Urine Total 2130 ml General Appearance: No Acute Distress Neuro: Other (Sedated and intubated) ENT: Moist Mucous Membranes Cardiovascular: Regular Rate and Rhythm Respiratory: Clear to Auscultation Extremities: No Edema Result Diagram: 12/13/17 0508 12/13/17 0508 Monitor Interpretation: Normal Sinus Rhythm Assessment and Plan Problems: (1) Acute respiratory failure with hypoxia Assessment & Plan: Intubated and ventilated. Propofol and fentanyl for sedation /analgesia. Low peak pressures, but initially difficult to oxygenate. Improved somewhat with respect to FiO2 at 50% and PEEP of 10. Now on AC settings instead of SIMV because more synchronous with the ventilator. Treating with IV Primaxin for presumed pneumonia. CXR with diffuse pulmonary infiltrates that could be related to ARDS, but patient is ventilating/oxygenating relatively easily. Will try IV Lasix for concern of pulmonary congestion (he has received almost 10 liters of IVF since admission). (2) Pneumothorax Status: Acute Assessment & Plan: On the right. Improved with second chest tube (3) Alcohol dependence Assessment & Plan: Day before admission was last drink - history was related by . Reportedly 12 pack of beer plus 1-2 shots whisky daily. He is now covered with propofol. Monitor for withdrawal symptoms. Supplement thiamine and folate. (4) NICOTINE DEPENDENCE, CIGARETTES, UNCOMPLICATED Assessment & Plan: 2ppd smoker per , increased risks associated with intubation. (5) Closed right clavicular fracture Status: Acute Assessment & Plan: Per surgery, immobilize in sling, fentanyl for pain while sedated. (6) Right rib fracture Assessment & Plan: Per surgery, analgesia fentanyl while intubated. Exam Sepsis Risk: No Definite Risk Problem Qualifiers (1) Closed right clavicular fracture: Encounter type: initial encounter Clavicle location: unspecified part of clavicle Fracture alignment: displaced Qualified Codes: S42.001A - Fracture of unspecified part of right clavicle, initial encounter for closed fracture MARINA MAIER MD Dec 13, 2017 11:29
[2017-12-13] MEDS ORDERED: VANCOMYCIN(*) 1 GM VIAL 2 GM in NS(*) 0.9% 250 ML BAG 250 ML IVPB ONE (13:00)
[2017-12-13] MEDS: KCL/D1/2NS 20 MEQ 1000 ML 1,000 ML IV SCH (14:05)
[2017-12-13] MEDS: THIAMINE HCL 200 MG/2 ML INJ IVP SCH (15:07)
[2017-12-13] MEDS: FOLIC ACID 50 MG/10 ML 1ML INJ IV SCH (15:08)
--- NOTE | 2017-12-13 15:56 | Antimicrobial Stewardship ---
Antimicrobial Time Out Antimicrobial Stewardship MD Service: Hospitalist Indications: Other (s/p trauma with rib fractures, developed pneumonia) Antimicrobial Used Primaxin + Vancomycin Start Date: Dec 11, 2017 Culture Results: Yes (Cultures are pending) Eligible for PO Conversion Eligable for PO Conversion: No Reviewed with Provider Reviewed w/ Provider on Rounds: Yes Date Reviewed w/ Provider: Dec 13, 2017 Comments Comments 57 yo M s/p trauma secondary to falling off of his horse on his right side. Has a fracture of right clavicle and multiple ribs on the right side. Developed a hemothorax, pneumothorax, ARDs, and pneumonia. Currently sedated and ventilated on the vent. Tmax 100.4 12/14 0530 WBCs wnl Chest xrays- diffuse pulmonary infiltrates, two chest tubes Sputum Cx from 12/11/17 - Gram + cocci growing via ET aspirate 1. Pneumonia - Currently on primaxin 500mg IV q6h, started on 12/11/17, today is day 3, sputum cultures growing GPC, will add Vancomycin 2g x1, then 1.5g IV q8h , trough for tomorrow 12/14/17 at noon. Goal trough 15-20. Will follow closely. Consider fever source from alcohol withdrawal. Tomasa Howard, PharmD, BCOP TOMASA HOWARD Dec 13, 2017 15:56
[2017-12-13] MEDS: VANCOMYCIN(*) 1 GM VIAL 1 GM, VANCOMYCIN (*) 0.5 GM VIAL 0.5 GM in NS(*) 0.9% 250 ML BA... IVPB SCH (21:08)
[2017-12-14] VITALS (90 sets, daily range): BP systolic 97–151; BP diastolic 56–97
[2017-12-14] MEDS: IMIPENEM/CILASTA(*) 500MG VIAL 500 MG in NS(*) 0.9% 100 ML BAG 100 ML IVPB SCH ×3 (00:44→12:56)
[2017-12-14] MEDS: PROPOFOL(*)1000 MG/100 ML VIAL 100 ML IV PRN ×7 (01:26→23:42)
[2017-12-14] MEDS: VANCOMYCIN(*) 1 GM VIAL 1 GM, VANCOMYCIN (*) 0.5 GM VIAL 0.5 GM in NS(*) 0.9% 250 ML BA... IVPB SCH (04:38)
[2017-12-14 05:17] LABS: PLATELET COUNT, AUTOMATED 245 K/uL (150-450)
--- NOTE | 2017-12-14 05:33 | RADIOLOGY IMAGING REPORT ---
FACILITY: [facility] PATIENT NAME: Helena Nuñez : 1960 MR: [id number] V: [id number] EXAM DATE: ORDERING PHYSICIAN: BARBRA CHATTERJEE TECHNOLOGIST: Location: [facility] [place] Patient: Helena Nuñez : 1960 Visit/Account:[id number] Date of Sevice: 12/14/2017 AP CHEST 12/14/2017 5:00 AM. INDICATION: Chest tubes to waterseal, RDS, intubated. COMPARISON: Yesterday. FINDINGS: Support line and tubes are unchanged. Diffuse bilateral mixed opacification is likely unchanged. No well-demonstrated pneumothorax. No definite large volume of pleural fluid. Heart size is is unchan ged. Multiple right rib fractures are better demonstrated on today's exam. IMPRESSION: No significant change. Report Dictated By: Deangelo Sacnhez MD at 12/14/2017 5:26 AM Report E-Signed By: Deangelo Sanchez MD at 12/14/2017 5:29 AM WSN:[id number]
[2017-12-14] MEDS: ACETAMINOPHEN(*)1000 MG/100 ML 100 ML IVPB SCH ×4 (06:05→23:31)
--- NOTE | 2017-12-14 07:50 | General Surgery Progress Note ---
Subjective Progress Notes Subjective Intubated/sedated Physical Exam Vital Signs Date Time Temp Pulse Resp B/P (MAP) Pulse Ox O2 Delivery O2 Flow Rate FiO2 12/14/17 07:20 45.0 12/14/17 07:15 100.0 83 15 118/65 (82) 95 Mechanical Ventilator 12/11/17 07:42 35.0 General Appearance: Afebrile, Other (Intubated, sedated) Chest: Other (Chest tubes with little output, no airleak) GI: Other (Soft) Extremities: Warm, Perfused Result Diagram: 12/14/17 0510 12/14/17 0510 Monitor Interpretation: Normal Sinus Rhythm Assessment and Plan Problems: (1) Acute on chronic respiratory failure with hypoxia Status: Acute Assessment & Plan: 12/11/17: Transfer to ICU, intensify pulmonary toilet, High flow nasal cannula, continue Albuterol q 4 h, if no improvement then intubation , and mechanical ventilation. 12/12/17: Pt developed respiratory failure yesterday. Transferred to ICU and intubated yesterday, place a right chest tube, central line, and completed bronchoscopy. Started primaxin for PNA. Now stable. CXR this morning with right pneumothorax even with chest tube seemingly in good position and draining serous fluid. Not tidaling with vent and no obvious air leak on pleurovac. Turned up suction and will check CXR in 4 hours. If still with PTX, will place another chest tube anteriorly to evacuate pneumothorax. Started trophic TF via NG tube, gastric residuals are minimal. Will increase TF slowly to goal rate of 70ml/hr. Start bowel regimen today. Will stop sedation and wean vent as he tolerates. [facility] protocol for EtOH abuse. Banana bag for 3 days. Will discuss smoking cessation before going home. 12/13/17: Pt developed tension PTX yesterday in spite of chest tube present and a second chest tube was placed anteriorly. He has also developed ARDS. He is on a lower tidal volume with faster respiratory rate to avoid lung injury to non -compliant pulmonary segments. He is stable at the moment. CXR this morning c/ w worsening ARDS but no PTX and chest tubes, ETT, central line are in good position. Will place chest tubes to water seal today and check CXR on water seal. Will resume trophic TF via NG tube and follow gastric residuals. If tolerates this today with minimal gastric residuals then will increase feedings later today. Continue bowel regimen. Will conduct daily sedation vacations and work him out on the vent to prevent respiratory muscle atrophy. Continue aggressive pulmonary hygiene, lovenox, PPI. Will have a low threshold to transfer to [facility] for multidisciplinary vent management if we start to see signs of ventilatory trouble, decreasing compliance, problems oxygenating him, etc. I discussed this with his family who is ever-present at his bedside and they seem agreeable with this plan for now but they too would like to have a low threshold to transfer him. 12/14/17: He has done well overnight. Oxygenating well with good lung compliance. Will continue to wean vent slowly as patient tolerates along with daily sedation holidays. Will work on increasing TF to goal of 70cc/hour if he tolerates this. If not, may need to consider TPN. Replace potassium. Continue aggressive pulmonary hygiene, lovenox, PPI. (2) Multiple fractures of ribs, right side, initial encounter for closed fracture Status: Acute Assessment & Plan: . 12/09/17: Pain control good with epidural, voiding okay. Continue IS and Vigorous pulmonary toilet. 12/10/17: Having increased chest wall pain this am. Anesthesia will re bolus epidural. Once pain under better control, will need vigorous pulmonary toilet. 12/11/17: Added Gabapentin, IV Tylenol and increased dose of oxycodone for pain control. Despite this he is developing progressive RLL atelectasis and now hypoxemia with increasing O2 requirement. Bilateral patchy infiltrates noted. Afebrile with normal WBC. Will transfer to ICU with high flow NC. Bolus epidural, Intensify pulmonary toilet. Good chance he will require intubation, mechanical ventilation, and even bronchoscopy. (3) Pneumothorax Status: Resolved (4) Hemothorax, right Status: Acute Assessment & Plan: 12/09/17: Small hemothorax noted on CT not appreciated on this am CXR, Will recheck CXR in am, H&H stable. 12/10/17: CXR with increase in effusion. Hct down but likely related to IV hydration. Will get repeat CT chest today. Will place chest tube if this fluid appears as blood. Repeat CBC in am. 12/10/17: Chest CT reviewed, will continue to hold off on chest drain, though if increase further than will need pig tail or chest tube. Recheck CXR in am. Radiologist reports 1. Multiple patchy areas of consolidation with an upper lung zone predominance, new from 12/08/2017 most consistent with evolving lung contusions. Multifocal pneumonia is also possible. 2. A small right pleural effusion is larger. A trace left pleural effusion is new. Neither appears hemorrhagic. 3. Previously described fractures including multiple right rib fractures on the right clavicular shaft fracture are stable. 4. Mild coronary artery calcifications. 12/11/17: No significant increase in effusion, if he requires intubation then will place pleural drain. Hct stable (5) Closed right clavicular fracture Status: Acute Assessment & Plan: 12/09/17: continue to use sling as we mobilize, ice pack, continue Percocet for pain control. 12/10/17: continue with same plan. 12/11/17: less edema, continue ice and sling. (6) Abrasions of multiple sites Status: Acute Assessment & Plan: 12/09/17: Received tetanus booster in the past year, Bacitracin to wounds (7) ARDS (adult respiratory distress syndrome) Status: Acute (8) Depression Status: Chronic Assessment & Plan: Continue home Zoloft. (9) Tension pneumothorax Status: Resolved Condition Critical Time Spent: < 30 min Exam Sepsis Risk: No Definite Risk Problem Qualifiers (1) Pneumothorax: Pneumothorax type: spontaneous, tension Qualified Codes: J93.0 - Spontaneous tension pneumothorax (2) Closed right clavicular fracture: Encounter type: initial encounter Clavicle location: unspecified part of clavicle Fracture alignment: displaced Qualified Codes: S42.001A - Fracture of unspecified part of right clavicle, initial encounter for closed fracture (3) Depression: Depression Type: unspecified Qualified Codes: F32.9 - Major depressive disorder, single episode, unspecified BARBRA CHATTERJEE MD Dec 14, 2017 07:50
[2017-12-14] MEDS: KCL (*) 20 MEQ/100 ML PREMIX 100 ML IV SCH ×2 (08:17→10:28)
[2017-12-14] MEDS: SERTRALINE HCL 50 MG TAB PO SCH (09:22)
[2017-12-14] MEDS: ENOXAPARIN 40 MG/0.4ML SYR SC SCH (09:22)
[2017-12-14] MEDS: POLYETHYLENE GLYCOL 17 GM PKT PO SCH (09:23)
[2017-12-14] MEDS: ORAL SUCTION/CHLORHX/SWAB KIT MT SCH ×2 (09:26→20:16)
[2017-12-14] MEDS: DOCUSATE SOD LIQ 100 MG/10 ML UDC PO SCH ×2 (09:28→20:16)
[2017-12-14] MEDS: PANTOPRAZOLE SOD 40 MG IV VIAL IVP SCH (09:29)
--- NOTE | 2017-12-14 10:04 | Medical Nutrition Therapy ---
Nutrition Anthropometrics Height (Inches): 72.00 Height (Calculated Centimeters: [phone] Weight (Pounds): 170 Weight (Calculated Kilograms): 77.111 BMI: 22 Timmy Nutrition Score: Adequate Timmy Nutrition Risk Score: 17 Dietary Referral Nutrition Risk Factors: Nutrition Risk Comment: Physical Findings Physical Appearance: WNR Skin Appearance Skin Appearance: Edema Edema Location Modifier: Edema Location: Type of Edema: Degree of Edema: Gastrointestinal Symptoms GI Symtoms: Constipation Tube Present: Bowel Sounds: Recent Bowel Pattern: Stool Characteristics: Nutritional Diagnosis Nutritional Risk Acuity 1: Tube Feed Unstable, Pulm Fail Vent Past Medical History: Depression Nutritional Acuity: 1-High Nutrition Diagnosis: Increased Nutrient Needs Nutrition Etiology: Physiological Causes Nutrition Problem/Etiology/Sym: AEB rib fx, respiratory failure with mech vent Energy Requirement: 2300 ([place] X 1.25 AF) Protein Requirement: 73 (1gm/kg) Fluid Requirement: 2200 (30 ml/kg) Diet Type: NPO (Nothing by Mouth), Tube Feeding (TF) Nutrition Intervention: Incr diet as tolerated Nutritional Support Current Enteral / Parental: Tube Feeding Tube Feeding Formulas: Jevity 1cal/ml-Standard Current Tube Feeding Formula C: 10ml/hr Tube Feeding Supplement Streng: Full Feeding Route: FT Placed Oralgastric Current Duration: 24 Current Calories: 384 Current Protein: 11 Current Lipids Calories: 583 (from propofol at 22.1 mls/hr) Total Current Calories: 967 Recommended Tube Feeding Formu: increase to 70 ml/hr final rate Nutrition Monitoring & Eval RD Patient Assessment Time: [address] Assessment Type: RD Re-Assessment Patient Nutrition Acuity: 1-High Follow Up Date: Dec 16, 2017 Nutritional Comment: 12/09 Pt admitted after fall from horse for Abrasions, Hemothorax, Multiple fractures of ribs, and clavicular fracture. Lactate 2.5, Alb 4.5. Within normal wt range with BMI of 22.0. Receiving PARESH and consuming 100% of meals. Follow intake, labs, etc. DRT 12/11 Pt moved to ICU r/t respirtory failure. Pt is currently on mech vent and recieving propofol at 22.1mls/hr. Pt is on TF of jevity at 10ml/hr provideing 255 kcal with additional 583 kcal from Propofol. Current TF order is meeting 25% est kcal and 7% est protein needs. If pt is to remain on mech vent, recommend a final rate of 70 ml/hr which meets 100% est protein needs and 103% est karen needs with the current rate of propofol. 8/ TF increasing to final rate of 70ml/hr. Currently recieving 20ml/hr and tolerating it well with minimal residuals. Propofol has decreased to 13.2. Final TF will meet 103% est protein needs and 93% est kcal needs with propofol at 13.2. Will cont to monitor. 8/ TF has been decreased to 10ml/hr. Pt cont mech vent and on propofol. Pt has new dx of ARDS. TF + propofol is meeting 42% of kccal and 7% of protein needs. Recommend slowly increased back to final rate of 70 to meet nutr needs when pt is able. Cont to monitor. BK 8/3 Low H/H, Alb 2.5, Ca+ 7.1, Na+ 135, K+ 3.0, Low BUN/Creat. Jevity TF at 10mL/hr with minimal residuals. Pt also receiving varying amounts of propofol for sedation which contributes 1.1 kcals/mL as fat. MD notes indicate plan to to slowly increase TF to goal of 70cc/hour if pt tolerates and may consider TPN if pt not able to tolerate TF. Monitor TF tolerance, labs, etc. -MARCELINO NGUYEN Dec 14, 2017 10:04
[2017-12-14] MEDS: KCL/D1/2NS 20 MEQ 1000 ML 1,000 ML IV SCH (10:26)
[2017-12-14] MEDS ORDERED: KCL/D1/2NS 20 MEQ 1000 ML 1,000 ML IV PRN (10:50)
--- NOTE | 2017-12-14 11:01 | Hospitalist Progress Note ---
Subjective Progress Notes Subjective The patient remains intubated and sedated. Physical Exam Vital Signs Date Time Temp Pulse Resp B/P (MAP) Pulse Ox O2 Delivery O2 Flow Rate FiO2 12/14/17 10:45 73 16 132/75 (94) 99 Mechanical Ventilator 45.0 12/14/17 10:00 98.8 12/11/17 07:42 35.0 Intake and Output 12/15/17 07:00 Intake Total 517 ml Balance 517 ml IV Total 417 ml Tube Feeding 100 ml General Appearance: Other (Sedated.) Neuro: Other (Sedated, unable to assess.) Cardiovascular: Regular Rate and Rhythm Respiratory: Clear to Auscultation (Anteriorly.) Chest: Other ([address], R chest. Central line clean, dry R upper chest/neck.) Extremities: Warm, Perfused Integumentary: Other (Chest tubes in place.) Psych: Other (Sedated.) Result Diagram: 12/14/17 0510 12/14/17 0510 Monitor Interpretation: Normal Sinus Rhythm Assessment and Plan Problems: (1) Acute respiratory failure with hypoxia Assessment & Plan: Intubated and ventilated. Propofol and fentanyl for sedation /analgesia. Low peak pressures, but initially difficult to oxygenate. Improved with respect to FiO2 at 45% and PEEP of 7. Now on AC settings instead of SIMV because more synchronous with the ventilator. Treating with IV Primaxin for presumed pneumonia. CXR with diffuse pulmonary infiltrates that could be related to ARDS, but patient is ventilating/oxygenating relatively easily. Was given IV Lasix for concern of pulmonary congestion (he has received almost 10 liters of IVF since admission) yesterday. Urine output remains good. Will monitor. (2) Pneumothorax Status: Resolved Assessment & Plan: On the right. Improved with second chest tube (3) Alcohol dependence Assessment & Plan: Day before admission was last drink - history was related by . Reportedly 12 pack of beer plus 1-2 shots whisky daily. He is now covered with propofol. Monitor for withdrawal symptoms. Supplement thiamine and folate. (4) NICOTINE DEPENDENCE, CIGARETTES, UNCOMPLICATED Assessment & Plan: 2ppd smoker per , increased risks associated with intubation. (5) Closed right clavicular fracture Status: Acute Assessment & Plan: Per surgery, immobilize in sling, fentanyl for pain while sedated. (6) Right rib fracture Assessment & Plan: Per surgery, analgesia fentanyl while intubated. Time Spent on Plan of Care: < 30 min Exam Sepsis Risk: No Definite Risk Problem Qualifiers (1) Pneumothorax: Pneumothorax type: spontaneous, tension Qualified Codes: J93.0 - Spontaneous tension pneumothorax (2) Closed right clavicular fracture: Encounter type: initial encounter Clavicle location: unspecified part of clavicle Fracture alignment: displaced Qualified Codes: S42.001A - Fracture of unspecified part of right clavicle, initial encounter for closed fracture STERLING REDMOND MD Dec 14, 2017 11:00
[2017-12-14] MEDS: NS(*) 0.9% 500 ML BAG 500 ML IV PRN (12:56)
[2017-12-14] MEDS: THIAMINE HCL 200 MG/2 ML INJ IVP SCH (15:04)
[2017-12-14] MEDS: FOLIC ACID 50 MG/10 ML 1ML INJ IV SCH (15:08)
[2017-12-14] MEDS: AMPICILLIN/SULBACT (*) 3 GM VL 3 GM in NS(*) 0.9% 100 ML BAG 100 ML IVPB SCH (18:56)
[2017-12-14] MEDS ORDERED: KETAMINE HCL(*)500MG/5ML VIAL 500 MG in NS(*) 0.9% 500 ML BAG 495 ML IVPB ONE (22:20)
[2017-12-14] MEDS ORDERED: FUROSEMIDE 40 MG/4 ML VIAL IVP ONE (22:20)
--- NOTE | 2017-12-14 22:35 | Gen Surgery H&P BLANK ---
GENERAL SURGERY H&P BLANK SICU PROGRESS NOTE ADDENDUM Fio2 increased to 50 from 45% today; PEEP increased back up to 6 from 5. Daily weights have gone from 158 admission to 170 today with daily + balance. BUN/CR are both trending down and are low normals. CVP has trended up from 6 to 10. CXR appears wet. Will give 40 Lasix in an attempt to diurese slowly. Propofol sedation has been increased to 70 mg/hr with failure to wean. Due to concerns for propofol infusion syndrome, will attempt to wean back down below 50 mg/hr. Will add low dose Ketamine infusion at 20 mg/hr and Ativan at 1 mg Q 6 hours for hallucination/dream suppression, although this should not be a problem at the low dosage. No BM; will add a daily rectal suppository before his sedation holiday each morning. Total additional critical care time: 30 minutes LEXIS Wren MD Trauma and Surgical Critical Care DORCAS WREN MD Dec 14, 2017 22:35
[2017-12-14] MEDS: LORazepam 2 MG/ML VIAL IVP SCH (23:30)
[2017-12-14] MEDS: [UNRECOGNIZED DRUG - OTHER] IV SCH (23:43)
[2017-12-14] MEDS: NS 0.9% IV SCH (23:43)
[2017-12-15] VITALS (90 sets, daily range): BP systolic 79–154; BP diastolic 71–103
[2017-12-15] MEDS: AMPICILLIN/SULBACT (*) 3 GM VL 3 GM in NS(*) 0.9% 100 ML BAG 100 ML IVPB SCH ×4 (00:02→18:27)
[2017-12-15] MEDS: [UNRECOGNIZED DRUG - OTHER] IV SCH (01:03)
[2017-12-15] MEDS: NS 0.9% IV SCH (01:03)
[2017-12-15] MEDS: PROPOFOL(*)1000 MG/100 ML VIAL 100 ML IV PRN ×3 (03:28→16:21)
[2017-12-15 05:38] LABS: PLATELET COUNT, AUTOMATED 320 K/uL (150-450)
--- NOTE | 2017-12-15 05:54 | RADIOLOGY IMAGING REPORT ---
FACILITY: [facility] PATIENT NAME: Helena Nuñez : 1960 MR: [id number] V: [id number] EXAM DATE: ORDERING PHYSICIAN: BARBRA CHATTERJEE TECHNOLOGIST: Location: [facility] Patient: Helena Nuñez : 1960 Visit/Account:[id number] Date of Sevice: 12/15/2017 AP CHEST 12/15/2017 5:00 AM. INDICATION: Rib fx, chest tubes, intubated, PNA, ARDS COMPARISON: Yesterday. FINDINGS: Support line and tubes are unchanged. Bilateral mixed opacification is likely unchanged. Question s mall volume subpulmonic pneumothorax on the right. Limited evaluation for pleural effusion. Heart s ize is unchanged. IMPRESSION: Question small volume of right sided subpulmonic pneumothorax with chest tubes in place, otherwise unchanged. Report Dictated By: Deangelo Sanchez MD at 12/15/2017 5:49 AM Report E-Signed By: Deangelo Sanchez MD at 12/15/2017 5:51 AM WSN:[id number]
[2017-12-15] MEDS: ACETAMINOPHEN(*)1000 MG/100 ML 100 ML IVPB SCH ×4 (06:24→23:24)
[2017-12-15] MEDS: LORazepam 2 MG/ML VIAL IVP SCH ×4 (06:25→23:25)
[2017-12-15] MEDS ORDERED: BISACODYL 10 MG SUPP PR ONE (08:00)
[2017-12-15] MEDS: POLYETHYLENE GLYCOL 17 GM PKT PO SCH (08:38)
[2017-12-15] MEDS: SERTRALINE HCL 50 MG TAB PO SCH (08:38)
[2017-12-15] MEDS: ENOXAPARIN 30 MG/0.3 ML SYR SC SCH ×2 (08:38→21:29)
[2017-12-15] MEDS: PANTOPRAZOLE SOD 40 MG IV VIAL IVP SCH (08:38)
[2017-12-15] MEDS: ORAL SUCTION/CHLORHX/SWAB KIT MT SCH ×2 (08:39→21:30)
[2017-12-15] MEDS: DOCUSATE SOD LIQ 100 MG/10 ML UDC PO SCH ×2 (08:49→21:30)
[2017-12-15] MEDS ORDERED: POTASSIUM CHL 10% SF LIQ 20MEQ FT ONE ×2 (09:00→11:00)
[2017-12-15] MEDS ORDERED: FUROSEMIDE 40 MG/4 ML VIAL IVP ONE ×2 (10:10→21:15)
--- NOTE | 2017-12-15 12:36 | Hospitalist Progress Note ---
Subjective Progress Notes Subjective 57M admitted for R chest trauma. Remains intubated and sedated. Physical Exam Vital Signs Date Time Temp Pulse Resp B/P (MAP) Pulse Ox O2 Delivery O2 Flow Rate FiO2 12/15/17 11:56 93 Mechanical Ventilator 50.0 12/15/17 11:56 96 12/15/17 11:15 25 107/91 (96) 12/15/17 07:24 35.0 12/15/17 07:15 100.6 Intake and Output 12/16/17 07:00 Intake Total 1484 ml Output Total 1520 ml Balance -36 ml IV Total 1152 ml Tube Feeding 207 ml Tube Irrigant 125 ml Output Urine Total 1520 ml ENT: Normal (+ ET tube) Neck: No Masses Cardiovascular: Normal Rhythm & Peripheral Pulses Respiratory: Other (ventilated) Chest: No Masses GI: Soft and Non-Tender Lymph: Cervical Nodes Benign Integumentary: Skin Intact without Lesion / Mass Result Diagram: 12/15/17 0506 12/15/17 0506 Monitor Interpretation: Normal Sinus Rhythm Assessment and Plan Problems: (1) Acute respiratory failure with hypoxia Assessment & Plan: Intubated and ventilated. Propofol and fentanyl for sedation /analgesia. Low peak pressures, but initially difficult to oxygenate. CXR with diffuse pulmonary infiltrates that could be related to ARDS, but patient is ventilating/oxygenating relatively easily. IV lasix for diuresis. On Unasyn after bronch grew Strep agalactiae (2) Pneumothorax Status: Resolved Assessment & Plan: On the right. Improved with second chest tube (3) Alcohol dependence Assessment & Plan: Day before admission was last drink - history was related by . Reportedly 12 pack of beer plus 1-2 shots whisky daily. He is now covered with propofol. Monitor for withdrawal symptoms. Supplement thiamine and folate. (4) NICOTINE DEPENDENCE, CIGARETTES, UNCOMPLICATED Assessment & Plan: 2ppd smoker per , increased risks associated with intubation. (5) Closed right clavicular fracture Status: Acute Assessment & Plan: Per surgery, immobilize in sling, fentanyl for pain while sedated. (6) Right rib fracture Assessment & Plan: Per surgery, analgesia fentanyl while intubated. Exam Sepsis Risk: No Definite Risk Problem Qualifiers (1) Pneumothorax: Pneumothorax type: spontaneous, tension Qualified Codes: J93.0 - Spontaneous tension pneumothorax (2) Closed right clavicular fracture: Encounter type: initial encounter Clavicle location: unspecified part of clavicle Fracture alignment: displaced Qualified Codes: S42.001A - Fracture of unspecified part of right clavicle, initial encounter for closed fracture TROY YAO DO Dec 15, 2017 12:36
--- NOTE | 2017-12-15 14:22 | General Surgery Progress Note ---
Subjective Progress Notes Subjective Remains intubated; Sedation holiday this AM - opened both eyes to verbal command and squeezed hands; moved feet to command. Unable to provide other details; Did have fever overnight- recultured. On Unasyn for strept from BAL. Physical Exam Vital Signs Date Time Temp Pulse Resp B/P (MAP) Pulse Ox O2 Delivery O2 Flow Rate FiO2 12/15/17 13:03 50.0 12/15/17 13:03 84 21 12/15/17 13:00 99.4 114/76 (89) 93 12/15/17 11:56 Mechanical Ventilator 12/15/17 07:24 35.0 Intake and Output 12/16/17 07:00 Intake Total 1915 ml Output Total 1820 ml Balance 95 ml IV Total 1257 ml Tube Feeding 433 ml Tube Irrigant 225 ml Output Urine Total 1820 ml General Appearance: Other (Intubated, sedated; awoke during sedation holiday and able to follow commands and move all four extremities.) Neuro: No Gross deficits, Other (No gross motor abnl noted during sedation holiday- moved all four ext) Eyes: PERRLA ENT: Moist Mucous Membranes, Other (ETT and OG in place; Right IJ TLC in place) Cardiovascular: Normal Rhythm & Peripheral Pulses, Regular Rate and Rhythm Respiratory: Other (Course breath sounds bilaterally R>L) Chest: Other (CT x 2 on the right; No air leak; Anterior tube tidals) GI: Soft and Non-Tender, Other (Active bowel sounds; mild distention) Lymph: Other Musculoskeletal: Other (Right shoulder/arm sling for RIGHT clavicular fx) Extremities: Warm, Perfused, Edema (trace edema), Other (Left femoral SHAYLA in place) Integumentary: Skin Intact without Lesion / Mass Psych: Other (Intubated and sedated) Result Diagram: 12/15/17 0506 12/15/17 0506 Imaging CXR: ARDS appearance; unchanged; Tubes in good position Monitor Interpretation: Normal Sinus Rhythm Assessment and Plan Problems: (1) Acute on chronic respiratory failure with hypoxia Status: Acute Assessment & Plan: 12/11/17: Transfer to ICU, intensify pulmonary toilet, High flow nasal cannula, continue Albuterol q 4 h, if no improvement then intubation , and mechanical ventilation. 12/12/17: Pt developed respiratory failure yesterday. Transferred to ICU and intubated yesterday, place a right chest tube, central line, and completed bronchoscopy. Started primaxin for PNA. Now stable. CXR this morning with right pneumothorax even with chest tube seemingly in good position and draining serous fluid. Not tidaling with vent and no obvious air leak on pleurovac. Turned up suction and will check CXR in 4 hours. If still with PTX, will place another chest tube anteriorly to evacuate pneumothorax. Started trophic TF via NG tube, gastric residuals are minimal. Will increase TF slowly to goal rate of 70ml/hr. Start bowel regimen today. Will stop sedation and wean vent as he tolerates. [facility] protocol for EtOH abuse. Banana bag for 3 days. Will discuss smoking cessation before going home. 12/13/17: Pt developed tension PTX yesterday in spite of chest tube present and a second chest tube was placed anteriorly. He has also developed ARDS. He is on a lower tidal volume with faster respiratory rate to avoid lung injury to non -compliant pulmonary segments. He is stable at the moment. CXR this morning c/ w worsening ARDS but no PTX and chest tubes, ETT, central line are in good position. Will place chest tubes to water seal today and check CXR on water seal. Will resume trophic TF via NG tube and follow gastric residuals. If tolerates this today with minimal gastric residuals then will increase feedings later today. Continue bowel regimen. Will conduct daily sedation vacations and work him out on the vent to prevent respiratory muscle atrophy. Continue aggressive pulmonary hygiene, lovenox, PPI. Will have a low threshold to transfer to [facility] for multidisciplinary vent management if we start to see signs of ventilatory trouble, decreasing compliance, problems oxygenating him, etc. I discussed this with his family who is ever-present at his bedside and they seem agreeable with this plan for now but they too would like to have a low threshold to transfer him. 12/14/17: He has done well overnight. Oxygenating well with good lung compliance. Will continue to wean vent slowly as patient tolerates along with daily sedation holidays. Will work on increasing TF to goal of 70cc/hour if he tolerates this. If not, may need to consider TPN. Replace potassium. Continue aggressive pulmonary hygiene, Lovenox, PPI. 12/15/17: ARDS criteria met; Severe; PF ratio today 112; Plateau Pressure 23, Compliance 33; CXR unchanged; Undergoing Lasix diuresis. Remains on lung protective ventilation strategy with 500 cc tidal volume (6.4 cc/kg TV with Purdy Body weight by 6 foot height of 77.6 kg). Peep 6, FiO2 50%. Moderate secretions; HOB elevated. (2) Multiple fractures of ribs, right side, initial encounter for closed fracture Status: Acute Assessment & Plan: . 12/09/17: Pain control good with epidural, voiding okay. Continue IS and Vigorous pulmonary toilet. 12/10/17: Having increased chest wall pain this am. Anesthesia will re bolus epidural. Once pain under better control, will need vigorous pulmonary toilet. 12/11/17: Added Gabapentin, IV Tylenol and increased dose of oxycodone for pain control. Despite this he is developing progressive RLL atelectasis and now hypoxemia with increasing O2 requirement. Bilateral patchy infiltrates noted. Afebrile with normal WBC. Will transfer to ICU with high flow NC. Bolus epidural, Intensify pulmonary toilet. Good chance he will require intubation, mechanical ventilation, and even bronchoscopy. 12/15/17: Multiple lateral right-sided rib fractures from the 4-8 ribs as well as posterior fractures of the 7-9 ribs near their vertebral articulations. Pain management with Fentanyl. CT x [address] on the right (3) Pneumothorax Status: Resolved Assessment & Plan: 12/15/17: Right CT x [address] Tension pneumothorax treated on 13 December with a second chest tube. CXR appears that pneumo is resolved (4) Hemothorax, right Status: Acute Assessment & Plan: 12/09/17: Small hemothorax noted on CT not appreciated on this am CXR, Will recheck CXR in am, H&H stable. 12/10/17: CXR with increase in effusion. Hct down but likely related to IV hydration. Will get repeat CT chest today. Will place chest tube if this fluid appears as blood. Repeat CBC in am. 12/10/17: Chest CT reviewed, will continue to hold off on chest drain, though if increase further than will need pig tail or chest tube. Recheck CXR in am. Radiologist reports 1. Multiple patchy areas of consolidation with an upper lung zone predominance, new from 12/08/2017 most consistent with evolving lung contusions. Multifocal pneumonia is also possible. 2. A small right pleural effusion is larger. A trace left pleural effusion is new. Neither appears hemorrhagic. 3. Previously described fractures including multiple right rib fractures on the right clavicular shaft fracture are stable. 4. Mild coronary artery calcifications. 12/11/17: No significant increase in effusion, if he requires intubation then will place pleural drain. Hct stable 12/15/17: CT x [address], serous only drainage; Inferior chest tube with 160 cc out/ too much to remove today (5) Closed right clavicular fracture Status: Acute Assessment & Plan: 12/09/17: continue to use sling as we mobilize, ice pack, continue Percocet for pain control. 12/10/17: continue with same plan. 12/11/17: less edema, continue ice and sling. 12/15/17: Continues in sling for Right Clavicular fracture; No skin compromise or tenting (6) Abrasions of multiple sites Status: Acute Assessment & Plan: 12/09/17: Received tetanus booster in the past year, Bacitracin to wounds (7) ARDS (adult respiratory distress syndrome) Status: Acute Assessment & Plan: 12/15/17: ARDS criteria met; Severe; PF ratio today 112; Plateau Pressure 23, Compliance 33; CXR unchanged; Undergoing Lasix diuresis. Remains on lung protective ventilation strategy with 500 cc tidal volume (6.4 cc /kg TV with Purdy Body weight by 6 foot height of 77.6 kg). Peep 6, FiO2 50%. Moderate secretions; HOB elevated. (8) Depression Status: Chronic Assessment & Plan: Continue home Zoloft. (9) Tension pneumothorax Status: Resolved Assessment & Plan: 12/15/17: CT x 2 on the right; no air leak. CXR stable (10) Volume overload Status: Acute Assessment & Plan: 12/15/17: Daily weights have gone from 158 admission to 171.8 today with daily ++ balance. BUN/CR are both trending down and are low normals; CVP has trended up from 6 to 8.; CXR appears wet; Given lasix last PM with 2000 cc response. Will give 40 Lasix again this AM (11) At high risk for deep venous thrombosis Status: Acute Assessment & Plan: 12/15/17: High risk for DVT: on Lovenox 30 BID and SCDs; Consider screening duplex on ICU day 5 for high risk population (12) Hypokalemia Status: Acute Assessment & Plan: 12/15/17: K level 3.2--- replaced with 80 meq potassium; will repeat K level in PM today Central Venous Access Medical Necessity for Access: Hemodynamic Monitoring (Left Femoral Shayla in place as well; Monitoring RIJ CVP), IV Access, Medication Administration Condition Tolerating full tube feeds at 70 cc/hr via OG tube; Will hold Feeds if > 200 cc residual for one hour and then recheck after one hour. Time Spent: > 30 min Critical Time Spent: 1st 30-74 Minutes (Documentation, serial exams, Ventilator management; Volume overload management; consultation with Int Medicine and nursing) Exam Sepsis Risk: No Definite Risk Problem Qualifiers (1) Pneumothorax: Pneumothorax type: spontaneous, tension Qualified Codes: J93.0 - Spontaneous tension pneumothorax (2) Closed right clavicular fracture: Encounter type: initial encounter Clavicle location: unspecified part of clavicle Fracture alignment: displaced Qualified Codes: S42.001A - Fracture of unspecified part of right clavicle, initial encounter for closed fracture (3) Depression: Depression Type: unspecified Qualified Codes: F32.9 - Major depressive disorder, single episode, unspecified DORCAS ROSAS MD Dec 15, 2017 14:17
[2017-12-15] MEDS ORDERED: POTASSIUM CHL 10% SF LIQ 20MEQ PO ONE ×2 (15:00→17:00)
[2017-12-15] MEDS: FOLIC ACID 50 MG/10 ML 1ML INJ IV SCH (15:11)
[2017-12-15] MEDS: THIAMINE HCL 200 MG/2 ML INJ IVP SCH (15:11)
--- NOTE | 2017-12-15 21:42 | RADIOLOGY IMAGING REPORT ---
FACILITY: [facility] PATIENT NAME: Helena Nuñez : 1960 MR: [id number] V: [id number] EXAM DATE: ORDERING PHYSICIAN: TROY SZYMANSKI TECHNOLOGIST: Location: [facility] Patient: Helena Nuñez : 1960 Visit/Account:[id number] Date of Sevice: 12/15/2017 CHEST SINGLE AP COMPARISONS: Earlier dated same day. ADDITIONAL PERTINENT HISTORY: OG tube placement FINDINGS: Life-support: Right internal jugular venous catheter, right-sided chest tubes and an endotracheal tub e remain in place. Interval placement of an orogastric tube with its tip in the mid to distal portion s of the stomach. Cardiomediastinal silhouette: Negative. Pulmonary vasculature: Negative. Lung cain: Patchy areas of infiltrate involving both lower lobes stable from previous exam. Pleural spaces: Negative. Osseous structures: Findings of right lower rib fractures, stable from previous exam. Findings sugge stive of a nondisplaced fracture involving the distal left clavicle. Surrounding soft tissues: Negative. IMPRESSION: 1. Interval placement of an orogastric tube in good position. 2. No other new findings from previous exam. Report Dictated By: En Daigle MD at 12/15/2017 9:35 PM Report E-Signed By: En Daigle MD at 12/15/2017 9:37 PM WSN:[id number]
--- NOTE | 2017-12-15 22:06 | Medical Nutrition Therapy ---
Nutrition Anthropometrics Height (Inches): 72.00 Height (Calculated Centimeters: 182.572121 Weight (Pounds): 176 Weight (Calculated Kilograms): 79.832 BMI: 22 Timmy Nutrition Score: Adequate Timmy Nutrition Risk Score: 11 Dietary Referral Nutrition Risk Factors: Nutrition Risk Comment: Physical Findings Physical Appearance: WNR Skin Appearance Skin Appearance: Edema Edema Location Modifier: Edema Location: Generalized Type of Edema: Degree of Edema: Gastrointestinal Symptoms GI Symtoms: Constipation Tube Present: OG Bowel Sounds: Recent Bowel Pattern: Stool Characteristics: Nutritional Diagnosis Nutritional Risk Acuity 1: Tube Feed Unstable, Pulm Fail Vent Past Medical History: Depression Nutritional Acuity: 1-High Nutrition Diagnosis: Increased Nutrient Needs Nutrition Etiology: Physiological Causes Nutrition Problem/Etiology/Sym: AEB rib fx, respiratory failure with mech vent Energy Requirement: 2300 ([place] X 1.25 AF) Protein Requirement: 73 (1gm/kg) Fluid Requirement: 2200 (30 ml/kg) Diet Type: NPO (Nothing by Mouth), Tube Feeding (TF) Nutrition Intervention: Incr diet as tolerated Nutritional Support Current Enteral / Parental: Tube Feeding Tube Feeding Formulas: Jevity 1cal/ml-Standard Current Tube Feeding Formula C: 10ml/hr Tube Feeding Supplement Streng: Full Feeding Route: FT Placed Oralgastric Rate: 70mL/hr Current Duration: 24 Current Calories: 1781 Current Protein: 74 Total Current Calories: 1781 + Propofol kcal Recommended Tube Feeding Formu: increase to 70 ml/hr final rate Nutrition Monitoring & Eval RD Patient Assessment Time: [address] Assessment Type: RD Re-Assessment Patient Nutrition Acuity: 1-High Follow Up Date: Dec 18, 2017 Nutritional Comment: 12/09 Pt admitted after fall from horse for Abrasions, Hemothorax, Multiple fractures of ribs, and clavicular fracture. Lactate 2.5, Alb 4.5. Within normal wt range with BMI of 22.0. Receiving PARESH and consuming 100% of meals. Follow intake, labs, etc. DRT 12/11 Pt moved to ICU r/t respirtory failure. Pt is currently on mech vent and recieving propofol at 22.1mls/hr. Pt is on TF of jevity at 10ml/hr provideing 255 kcal with additional 583 kcal from Propofol. Current TF order is meeting 25% est kcal and 7% est protein needs. If pt is to remain on mech vent, recommend a final rate of 70 ml/hr which meets 100% est protein needs and 103% est karen needs with the current rate of propofol. 12/12 TF increasing to final rate of 70ml/hr. Currently recieving 20ml/hr and tolerating it well with minimal residuals. Propofol has decreased to 13.2. Final TF will meet 103% est protein needs and 93% est kcal needs with propofol at 13.2. Will cont to monitor. 12/13 TF has been decreased to 10ml/hr. Pt cont mech vent and on propofol. Pt has new dx of ARDS. TF + propofol is meeting 42% of kccal and 7% of protein needs. Recommend slowly increased back to final rate of 70 to meet nutr needs when pt is able. Cont to monitor. BK 12/14 Low H/H, Alb 2.5, Ca+ 7.1, Na+ 135, K+ 3.0, Low BUN/Creat. Jevity TF at 10mL/hr with minimal residuals. Pt also receiving varying amounts of propofol for sedation which contributes 1.1 kcals/mL as fat. MD notes indicate plan to to slowly increase TF to goal of 70cc/hour if pt tolerates and may consider TPN if pt not able to tolerate TF. Monitor TF tolerance, labs, etc. -ADAL 12/15 Glu 125, Ca+ 8.1. TF now at 70mL/hr with pt tolerating. Residuals on 12/15 have been 35 - 160mL. TF providing 1781 kcals, 74 grams protein, and 1403 free water. Also continues to receive propofol for sedation. TF meeting 77% of kcal needs and 101% of protein needs. Follow TF tolerance, labs, etc. -MARCELINO NGUYEN Dec 15, 2017 22:06
--- NOTE | 2017-12-15 22:48 | Gen Surgery H&P BLANK ---
GENERAL SURGERY H&P BLANK SICU PROGRESS NOTE ADDENDUM: Pt remained relatively stable throughout the day. Vent: PEEP 6, FiO2 50% with saturation of 93% + secretions suctioned Low grade fever at this time- if spikes greater than 101.4- will repeat bronchoscopy and BAL OG backed up to 40 cm- readvanced to 65 cm Repeat CXR with OG in the stomach; Lungs appear more aerated R>>L Consider a recruitment maneuver by RT ETT 5.56 cm above the chevy on CXR- will advance 2 cm Repeat K level this PM was still < 4.0--administered another 80 austyn KCL via feeding tube Volume overload as suggested by increased weight, CVP 9, low BUN and low Creatinine. - Administered additional 40 of Lasix; will repeat K level in the AM; trend daily weights Tube feeds now up to 70 ml/hr; checking gastric residuals Additional CC time: 40 minutes Adam Wren MD Trauma, Surgical Critical Care DORCAS WREN MD Dec 15, 2017 22:48
[2017-12-16] VITALS (64 sets, daily range): BP systolic 108–168; BP diastolic 71–120
[2017-12-16] MEDS: AMPICILLIN/SULBACT (*) 3 GM VL 3 GM in NS(*) 0.9% 100 ML BAG 100 ML IVPB SCH ×4 (00:02→18:01)
[2017-12-16] MEDS: KETAMINE HCL(*)500MG/5ML VIAL 500 MG in NS(*) 0.9% 500 ML BAG 495 ML IV SCH ×2 (01:08→23:38)
[2017-12-16] MEDS: NS 0.9% IV SCH (03:10)
[2017-12-16] MEDS: [UNRECOGNIZED DRUG - OTHER] IV SCH (03:10)
[2017-12-16] MEDS: PROPOFOL(*)1000 MG/100 ML VIAL 100 ML IV PRN ×2 (03:12→21:40)
[2017-12-16 05:16] LABS: PLATELET COUNT, AUTOMATED 407 K/uL (150-450)
--- NOTE | 2017-12-16 05:58 | RADIOLOGY IMAGING REPORT ---
FACILITY: [facility] PATIENT NAME: Helena Nuñez : 1960 MR: [id number] V: [id number] EXAM DATE: ORDERING PHYSICIAN: DORCAS ROSAS TECHNOLOGIST: [facility] Patient: Helena Nuñez : 1960 Visit/Account:[id number] Date of Sevice: 12/16/2017 CHEST SINGLE AP COMPARISONS: Single view chest dated December 15, 2017 ADDITIONAL PERTINENT HISTORY: Intubated FINDINGS: Life-support: Endotracheal tube, NG tube, right internal jugular venous catheter in stable position. Cardiomediastinal silhouette: Negative. Pulmonary vasculature: Negative. Lung cain: Improved but persistent patchy areas of opacity involving both lung bases. Pleural spaces: Negative. Osseous structures: Negative. Surrounding soft tissues: Negative. IMPRESSION: 1. Improved but persistent patchy areas of opacity at both lung bases. 2. Stable life support. Report Dictated By: En Daigle MD at 12/16/2017 5:53 AM Report E-Signed By: En Daigle MD at 12/16/2017 5:55 AM WSN:[id number]
[2017-12-16] MEDS: LORazepam 2 MG/ML VIAL IVP SCH ×4 (06:24→23:37)
[2017-12-16] MEDS: ACETAMINOPHEN(*)1000 MG/100 ML 100 ML IVPB SCH ×4 (06:24→23:37)
[2017-12-16] MEDS: NS(*) 0.9% 500 ML BAG 500 ML IV PRN (06:25)
[2017-12-16] MEDS: ENOXAPARIN 30 MG/0.3 ML SYR SC SCH ×2 (08:29→21:11)
[2017-12-16] MEDS: PANTOPRAZOLE SOD 40 MG IV VIAL IVP SCH (08:29)
[2017-12-16] MEDS: FUROSEMIDE 40 MG/4 ML VIAL IVP ONE ×2 (08:29→09:37)
[2017-12-16] MEDS: ORAL SUCTION/CHLORHX/SWAB KIT MT SCH ×2 (08:29→21:12)
[2017-12-16] MEDS: SERTRALINE HCL 50 MG TAB PO SCH (08:29)
[2017-12-16] MEDS: POLYETHYLENE GLYCOL 17 GM PKT PO SCH (08:30)
[2017-12-16] MEDS: DOCUSATE SOD LIQ 100 MG/10 ML UDC PO SCH ×2 (08:30→21:00)
[2017-12-16] MEDS ORDERED: POTASSIUM CHL 10% SF LIQ 20MEQ PO ONE ×2 (09:00→11:00)
--- NOTE | 2017-12-16 09:16 | Hospitalist Progress Note ---
Subjective Progress Notes Subjective The patient is oxygenating and ventilating well. He did have a sedation vacation yesterday and followed commands. Having BM. Tolerating TF. Physical Exam Vital Signs Date Time Temp Pulse Resp B/P (MAP) Pulse Ox O2 Delivery O2 Flow Rate FiO2 12/16/17 08:50 85 12/16/17 08:34 40.0 12/16/17 08:30 99.5 17 137/92 (107) 95 Mechanical Ventilator 12/15/17 07:24 35.0 Intake and Output 12/17/17 07:00 Intake Total 2428 ml Output Total 360 ml Balance 2068 ml IV Total 1501 ml Tube Feeding 877 ml Tube Irrigant 50 ml Output Urine Total 320 ml Chest Tube Drainage Total 40 ml General Appearance: No Acute Distress Neuro: Other (Sedated and intubated) Cardiovascular: Regular Rate and Rhythm Respiratory: Clear to Auscultation Extremities: Edema (trace to 1+ pitting on abd/dependant thighs/arms) Integumentary: No Jaundice, No Cyanosis Result Diagram: 12/16/1751012/16/17510 Monitor Interpretation: Normal Sinus Rhythm Assessment and Plan Problems: (1) Acute respiratory failure with hypoxia Assessment & Plan: Intubated and ventilated. Propofol, ketamine and fentanyl for sedation/analgesia. Low peak pressures, but initially difficult to oxygenate. AC settings with Vt 500, PEEP 6, FiO2 50%. Breathing over the vent at about 5bpm for a total of 23bpm. CXR with diffuse pulmonary infiltrates that could be related to ARDS, but patient is ventilating/oxygenating relatively easily. CXR improving in the right base. IV Lasix again today for diuresis. On Unasyn after bronch grew Strep agalactiae (2) Pneumothorax Status: Resolved Assessment & Plan: On the right. Improved with second chest tube (3) Alcohol dependence Assessment & Plan: Day before admission was last drink - history was related by . Reportedly 12 pack of beer plus 1-2 shots whisky daily. He is now covered with propofol. Monitor for withdrawal symptoms. Supplement thiamine and folate. (4) NICOTINE DEPENDENCE, CIGARETTES, UNCOMPLICATED Assessment & Plan: 2ppd smoker per , increased risks associated with intubation. (5) Closed right clavicular fracture Status: Acute Assessment & Plan: Per surgery, immobilize in sling, fentanyl for pain while sedated. (6) Right rib fracture Assessment & Plan: Per surgery, analgesia fentanyl/ketamine while intubated. Central Venous Access Medical Necessity for Access: Hemodynamic Monitoring (Left Femoral [place] in place as well; Monitoring RIJ CVP), IV Access, Medication Administration Exam Sepsis Risk: No Definite Risk Problem Qualifiers (1) Pneumothorax: Pneumothorax type: spontaneous, tension Qualified Codes: J93.0 - Spontaneous tension pneumothorax (2) Closed right clavicular fracture: Encounter type: initial encounter Clavicle location: unspecified part of clavicle Fracture alignment: displaced Qualified Codes: S42.001A - Fracture of unspecified part of right clavicle, initial encounter for closed fracture MARINA MAIER MD Dec 16, 2017 09:16
[2017-12-16] MEDS ORDERED: hydrALAZINE HCL 20 MG/ML VIAL IVP ONE (11:45)
[2017-12-16] MEDS: FOLIC ACID 50 MG/10 ML 1ML INJ IV SCH (14:42)
[2017-12-16] MEDS: THIAMINE HCL 200 MG/2 ML INJ IVP SCH (14:42)
[2017-12-16] MEDS: hydrALAZINE HCL 20 MG/ML VIAL IVP PRN (20:23)
[2017-12-17] VITALS (93 sets, daily range): BP systolic 95–162; BP diastolic 64–118
[2017-12-17] MEDS: AMPICILLIN/SULBACT (*) 3 GM VL 3 GM in NS(*) 0.9% 100 ML BAG 100 ML IVPB SCH ×5 (00:40→23:48)
[2017-12-17] MEDS: PROPOFOL(*)1000 MG/100 ML VIAL 100 ML IV PRN ×2 (03:15→10:22)
[2017-12-17 05:23] LABS: PLATELET COUNT, AUTOMATED 484 K/uL (150-450)
[2017-12-17] MEDS: ACETAMINOPHEN(*)1000 MG/100 ML 100 ML IVPB SCH ×4 (05:24→23:22)
[2017-12-17] MEDS: LORazepam 2 MG/ML VIAL IVP SCH ×3 (05:24→17:59)
--- NOTE | 2017-12-17 07:03 | RADIOLOGY IMAGING REPORT ---
FACILITY: [facility] PATIENT NAME: Helena Nuñez : 1960 MR: [id number] V: [id number] EXAM DATE: ORDERING PHYSICIAN: MARINA MAIER TECHNOLOGIST: Location: [facility] Patient: Helena Nuñez : 1960 Visit/Account:[id number] Date of Sevice: 12/17/2017 AP CHEST 12/17/2017 6:00 AM. INDICATION: respiratory failure COMPARISON: Yesterday. FINDINGS/IMPRESSION: Support line and tubes are unchanged. Bilateral mixed opacification has likely increased. Probable small volume of right subpulmonic pneumothorax are unchanged. Chest wall emphysema is unchanged. Report Dictated By: Deangelo Sanchez MD at 12/17/2017 6:58 AM Report E-Signed By: Deangelo Sanchez MD at 12/17/2017 7:00 AM WSN:[id number]
--- NOTE | 2017-12-17 07:54 | General Surgery Progress Note ---
Subjective Progress Notes Subjective Intubated, sedated Physical Exam Vital Signs Date Time Temp Pulse Resp B/P (MAP) Pulse Ox O2 Delivery O2 Flow Rate FiO2 12/17/17 07:12 40.0 12/17/17 07:10 93 Mechanical Ventilator 12/17/17 06:07 82 12/17/17 06:03 99.6 12/17/17 06:00 16 112/74 (87) 12/15/17 07:24 35.0 General Appearance: Other (Intubated/sedated) Chest: Other (Chest tube with little serous output, no airleak.) GI: Soft and Non-Tender Extremities: Warm, Perfused Result Diagram: 12/17/17 0510 12/17/17 0510 Monitor Interpretation: Normal Sinus Rhythm Assessment and Plan Problems: (1) Acute on chronic respiratory failure with hypoxia Status: Acute Assessment & Plan: 12/11/17: Transfer to ICU, intensify pulmonary toilet, High flow nasal cannula, continue Albuterol q 4 h, if no improvement then intubation , and mechanical ventilation. 12/12/17: Pt developed respiratory failure yesterday. Transferred to ICU and intubated yesterday, place a right chest tube, central line, and completed bronchoscopy. Started primaxin for PNA. Now stable. CXR this morning with right pneumothorax even with chest tube seemingly in good position and draining serous fluid. Not tidaling with vent and no obvious air leak on pleurovac. Turned up suction and will check CXR in 4 hours. If still with PTX, will place another chest tube anteriorly to evacuate pneumothorax. Started trophic TF via NG tube, gastric residuals are minimal. Will increase TF slowly to goal rate of 70ml/hr. Start bowel regimen today. Will stop sedation and wean vent as he tolerates. [facility] protocol for EtOH abuse. Banana bag for 3 days. Will discuss smoking cessation before going home. 12/13/17: Pt developed tension PTX yesterday in spite of chest tube present and a second chest tube was placed anteriorly. He has also developed ARDS. He is on a lower tidal volume with faster respiratory rate to avoid lung injury to non -compliant pulmonary segments. He is stable at the moment. CXR this morning c/ w worsening ARDS but no PTX and chest tubes, ETT, central line are in good position. Will place chest tubes to water seal today and check CXR on water seal. Will resume trophic TF via NG tube and follow gastric residuals. If tolerates this today with minimal gastric residuals then will increase feedings later today. Continue bowel regimen. Will conduct daily sedation vacations and work him out on the vent to prevent respiratory muscle atrophy. Continue aggressive pulmonary hygiene, lovenox, PPI. Will have a low threshold to transfer to [facility] for multidisciplinary vent management if we start to see signs of ventilatory trouble, decreasing compliance, problems oxygenating him, etc. I discussed this with his family who is ever-present at his bedside and they seem agreeable with this plan for now but they too would like to have a low threshold to transfer him. 12/14/17: He has done well overnight. Oxygenating well with good lung compliance. Will continue to wean vent slowly as patient tolerates along with daily sedation holidays. Will work on increasing TF to goal of 70cc/hour if he tolerates this. If not, may need to consider TPN. Replace potassium. Continue aggressive pulmonary hygiene, Lovenox, PPI. 12/15/17: ARDS criteria met; Severe; PF ratio today 112; Plateau Pressure 23, Compliance 33; CXR unchanged; Undergoing Lasix diuresis. Remains on lung protective ventilation strategy with 500 cc tidal volume (6.4 cc/kg TV with [place] Body weight by 6 foot height of 77.6 kg). Peep 6, FiO2 50%. Moderate secretions; HOB elevated. 12/16/17: per Dr. Wren's note 12/17/17: Doing better. Now on CPAP PEEP5 PS15 fiO2 40% with SaO2 mid 90s. Will wean PS this morning. If he does well on this then will plan on extubation today. Will leave remaining chest tube in place until after extubation and will plan on removing in the next couple of days if he does well. Continue aggressive pulmonary hygiene. Will hold on TF this morning and will place NG to wall suction to empty stomach in case he extubates today. Continue lasix diuresis. PPI, lovenox. (2) Multiple fractures of ribs, right side, initial encounter for closed fracture Status: Acute Assessment & Plan: . 12/09/17: Pain control good with epidural, voiding okay. Continue IS and Vigorous pulmonary toilet. 12/10/17: Having increased chest wall pain this am. Anesthesia will re bolus epidural. Once pain under better control, will need vigorous pulmonary toilet. 12/11/17: Added Gabapentin, IV Tylenol and increased dose of oxycodone for pain control. Despite this he is developing progressive RLL atelectasis and now hypoxemia with increasing O2 requirement. Bilateral patchy infiltrates noted. Afebrile with normal WBC. Will transfer to ICU with high flow NC. Bolus epidural, Intensify pulmonary toilet. Good chance he will require intubation, mechanical ventilation, and even bronchoscopy. 12/15/17: Multiple lateral right-sided rib fractures from the 4-8 ribs as well as posterior fractures of the 7-9 ribs near their vertebral articulations. Pain management with Fentanyl. CT x [address] on the right (3) Pneumothorax Status: Resolved Assessment & Plan: 12/15/17: Right CT x [address] Tension pneumothorax treated on 13 December with a second chest tube. CXR appears that pneumo is resolved (4) Hemothorax, right Status: Acute Assessment & Plan: 12/09/17: Small hemothorax noted on CT not appreciated on this am CXR, Will recheck CXR in am, H&H stable. 12/10/17: CXR with increase in effusion. Hct down but likely related to IV hydration. Will get repeat CT chest today. Will place chest tube if this fluid appears as blood. Repeat CBC in am. 12/10/17: Chest CT reviewed, will continue to hold off on chest drain, though if increase further than will need pig tail or chest tube. Recheck CXR in am. Radiologist reports 1. Multiple patchy areas of consolidation with an upper lung zone predominance, new from 12/08/2017 most consistent with evolving lung contusions. Multifocal pneumonia is also possible. 2. A small right pleural effusion is larger. A trace left pleural effusion is new. Neither appears hemorrhagic. 3. Previously described fractures including multiple right rib fractures on the right clavicular shaft fracture are stable. 4. Mild coronary artery calcifications. 12/11/17: No significant increase in effusion, if he requires intubation then will place pleural drain. Hct stable 12/15/17: CT x [address], serous only drainage; Inferior chest tube with 160 cc out/ too much to remove today (5) Closed right clavicular fracture Status: Acute Assessment & Plan: 12/09/17: continue to use sling as we mobilize, ice pack, continue Percocet for pain control. 12/10/17: continue with same plan. 12/11/17: less edema, continue ice and sling. 12/15/17: Continues in sling for Right Clavicular fracture; No skin compromise or tenting (6) Abrasions of multiple sites Status: Acute Assessment & Plan: 12/09/17: Received tetanus booster in the past year, Bacitracin to wounds (7) ARDS (adult respiratory distress syndrome) Status: Acute Assessment & Plan: 12/15/17: ARDS criteria met; Severe; PF ratio today 112; Plateau Pressure 23, Compliance 33; CXR unchanged; Undergoing Lasix diuresis. Remains on lung protective ventilation strategy with 500 cc tidal volume (6.4 cc /kg TV with [place] Body weight by 6 foot height of 77.6 kg). Peep 6, FiO2 50%. Moderate secretions; HOB elevated. (8) Depression Status: Chronic Assessment & Plan: Continue home Zoloft. (9) Tension pneumothorax Status: Resolved Assessment & Plan: 12/15/17: CT x 2 on the right; no air leak. CXR stable (10) Volume overload Status: Acute Assessment & Plan: 12/15/17: Daily weights have gone from 158 admission to 171.8 today with daily ++ balance. BUN/CR are both trending down and are low normals; CVP has trended up from 6 to 8.; CXR appears wet; Given lasix last PM with 2000 cc response. Will give 40 Lasix again this AM (11) At high risk for deep venous thrombosis Status: Acute Assessment & Plan: 12/15/17: High risk for DVT: on Lovenox 30 BID and SCDs; Consider screening duplex on ICU day 5 for high risk population (12) Hypokalemia Status: Acute Assessment & Plan: 12/15/17: K level 3.2--- replaced with 80 meq potassium; will repeat K level in PM today Central Venous Access Medical Necessity for Access: Hemodynamic Monitoring (Left Femoral [place] in place as well; Monitoring RIJ CVP), IV Access, Medication Administration Condition Critical Time Spent: < 30 min Exam Sepsis Risk: No Definite Risk Problem Qualifiers (1) Pneumothorax: Pneumothorax type: spontaneous, tension Qualified Codes: J93.0 - Spontaneous tension pneumothorax (2) Closed right clavicular fracture: Encounter type: initial encounter Clavicle location: unspecified part of clavicle Fracture alignment: displaced Qualified Codes: S42.001A - Fracture of unspecified part of right clavicle, initial encounter for closed fracture (3) Depression: Depression Type: unspecified Qualified Codes: F32.9 - Major depressive disorder, single episode, unspecified (4) Volume overload: Hypervolemia type: other Qualified Codes: E87.79 - Other fluid overload BARBRA CHATTEREJE MD Dec 17, 2017 07:54
[2017-12-17] MEDS ORDERED: FUROSEMIDE 20 MG/2 ML VIAL IVP ONE (08:15)
[2017-12-17] MEDS: SERTRALINE HCL 50 MG TAB PO SCH (08:33)
[2017-12-17] MEDS: THIAMINE HCL 100 MG TAB FT SCH (08:33)
[2017-12-17] MEDS: FOLIC ACID 1 MG TAB FT SCH (08:34)
[2017-12-17] MEDS: ENOXAPARIN 30 MG/0.3 ML SYR SC SCH ×2 (08:34→22:37)
[2017-12-17] MEDS: ORAL SUCTION/CHLORHX/SWAB KIT MT SCH (08:34)
[2017-12-17] MEDS: PANTOPRAZOLE SOD 40 MG IV VIAL IVP SCH (08:37)
[2017-12-17] MEDS: POLYETHYLENE GLYCOL 17 GM PKT PO SCH (08:44)
[2017-12-17] MEDS: DOCUSATE SOD LIQ 100 MG/10 ML UDC PO SCH ×2 (08:44→21:00)
--- NOTE | 2017-12-17 09:47 | Hospitalist Progress Note ---
Subjective Progress Notes Subjective This patient was admitted to the ICU after developing aspiration and respiratory failure. He had no acute events overnight. Patient Complains of: Cardiovascular: No: Chest Pain Respiratory: No: Shortness of Breath Physical Exam Vital Signs Date Time Temp Pulse Resp B/P (MAP) Pulse Ox O2 Delivery O2 Flow Rate FiO2 12/17/17 09:10 40.0 12/17/17 08:00 74 12/17/17 07:45 13 115/72 (86) 94 Mechanical Ventilator 12/17/17 06:03 99.6 12/15/17 07:24 35.0 Intake and Output 12/18/17 07:00 Intake Total 1370 ml Output Total 40 ml Balance 1330 ml Tube Feeding 1145 ml Tube Irrigant 225 ml Output Urine Total 40 ml Neuro: No Gross deficits (Sedated to RASS -2) Eyes: PERRLA Cardiovascular: Regular Rate and Rhythm Respiratory: Other (Bilateral breath sounds present.) GI: Soft and Non-Tender Extremities: No Edema Integumentary: No Cyanosis Result Diagram: 12/17/17 0510 12/17/17 0510 Item Value Date Time Arterial Blood pH 7.47 H 12/17/17 0510 Arterial Blood Partial Pressure CO2 40 mmHg H 12/17/17 0510 Arterial Blood Partial Pressure O2 63 mmHg 12/17/17 0510 Arterial Blood HCO3 29 mmol/L H 12/17/17 0510 Item Value Date Time Gram Stain - Final Complete 12/11/17 1315 Sputum Endotrach Aspirate Monitor Interpretation: Normal Sinus Rhythm Assessment and Plan Problems: (1) Acute respiratory failure with hypoxia Assessment & Plan: He was intubated on 12/11. He is receiving propofol, ketamine and fentanyl for sedation/analgesia. He has been able to tolerate spontaneous ventilation intermittently over the last 24hrs. He is currently on CPAP and we are weaning his pressure support. We will plan to extubate if he continues to do well. (2) Pneumothorax Status: Resolved Assessment & Plan: He does have a chest tube on the right. (3) Aspiration pneumonia Assessment & Plan: He did have an aspiration event and developed bilateral infiltrates. His sputum culture was positive for group B Streptococcus. He is on treatment with Unasyn. (4) Alcohol dependence Assessment & Plan: He has not exhibited any withdrawal symptoms while on propofol. He is receiving supplemental thiamine. (5) NICOTINE DEPENDENCE, CIGARETTES, UNCOMPLICATED Assessment & Plan: 2ppd smoker per , increased risks associated with intubation. (6) Closed right clavicular fracture Status: Acute Assessment & Plan: Per surgery, immobilize in sling, fentanyl for pain while sedated. (7) Right rib fracture Assessment & Plan: Per surgery, analgesia fentanyl/ketamine while intubated. Central Venous Access Medical Necessity for Access: Hemodynamic Monitoring (Left Femoral [place] in place as well; Monitoring RIJ CVP), IV Access, Medication Administration Exam Sepsis Risk: No Definite Risk Problem Qualifiers (1) Pneumothorax: Pneumothorax type: spontaneous, tension Qualified Codes: J93.0 - Spontaneous tension pneumothorax (2) Closed right clavicular fracture: Encounter type: initial encounter Clavicle location: unspecified part of clavicle Fracture alignment: displaced Qualified Codes: S42.001A - Fracture of unspecified part of right clavicle, initial encounter for closed fracture BARBRA ANGEL DO Dec 17, 2017 09:47
[2017-12-17] MEDS: [UNRECOGNIZED DRUG - OTHER] IV SCH (12:44)
[2017-12-17] MEDS: NS 0.9% IV SCH (12:44)
[2017-12-17] MEDS ORDERED: LORazepam 2 MG/ML VIAL IVP PRN (14:10)
[2017-12-17] MEDS: LORazepam 2 MG/ML VIAL IVP PRN ×2 (14:24→23:00)
--- NOTE | 2017-12-17 14:52 | Medical Nutrition Therapy ---
Nutrition Anthropometrics Height (Inches): 72.00 Height (Calculated Centimeters: 182.990653 Weight (Pounds): 173 Weight (Calculated Kilograms): 78.471 BMI: 22 Timmy Nutrition Score: Adequate Timmy Nutrition Risk Score: 13 Dietary Referral Nutrition Risk Factors: Nutrition Risk Comment: Nutritional Diagnosis Past Medical History: Depression Nutritional Acuity: 2-Moderate Nutrition Diagnosis: Increased Nutrient Needs Nutrition Etiology: Physiological Causes Nutrition Problem/Etiology/Sym: AEB rib fx Energy Requirement: 2300 ([place] X 1.25 AF) Protein Requirement: 73 (1gm/kg) Fluid Requirement: 2200 (30 ml/kg) Diet Type: NPO (Nothing by Mouth) Nutrition Intervention: Incr diet as tolerated Nutrition Monitoring & Eval RD Patient Assessment Time: [address] Assessment Type: RD Re-Assessment Patient Nutrition Acuity: 2-Moderate Follow Up Date: Dec 18, 2017 Nutritional Comment: 12/09 Pt admitted after fall from horse for Abrasions, Hemothorax, Multiple fractures of ribs, and clavicular fracture. Lactate 2.5, Alb 4.5. Within normal wt range with BMI of 22.0. Receiving PARESH and consuming 100% of meals. Follow intake, labs, etc. DRT 12/11 Pt moved to ICU r/t respirtory failure. Pt is currently on mech vent and recieving propofol at 22.1mls/hr. Pt is on TF of jevity at 10ml/hr provideing 255 kcal with additional 583 kcal from Propofol. Current TF order is meeting 25% est kcal and 7% est protein needs. If pt is to remain on mech vent, recommend a final rate of 70 ml/hr which meets 100% est protein needs and 103% est karen needs with the current rate of propofol. 12/12 TF increasing to final rate of 70ml/hr. Currently recieving 20ml/hr and tolerating it well with minimal residuals. Propofol has decreased to 13.2. Final TF will meet 103% est protein needs and 93% est kcal needs with propofol at 13.2. Will cont to monitor. 12/13 TF has been decreased to 10ml/hr. Pt cont mech vent and on propofol. Pt has new dx of ARDS. TF + propofol is meeting 42% of kccal and 7% of protein needs. Recommend slowly increased back to final rate of 70 to meet nutr needs when pt is able. Cont to monitor. BK 8/3 Low H/H, Alb 2.5, Ca+ 7.1, Na+ 135, K+ 3.0, Low BUN/Creat. Jevity TF at 10mL/hr with minimal residuals. Pt also receiving varying amounts of propofol for sedation which contributes 1.1 kcals/mL as fat. MD notes indicate plan to to slowly increase TF to goal of 70cc/hour if pt tolerates and may consider TPN if pt not able to tolerate TF. Monitor TF tolerance, labs, etc. -DRT 12/15 Glu 125, Ca+ 8.1. TF now at 70mL/hr with pt tolerating. Residuals on 12/15 have been 35 - 160mL. TF providing 1781 kcals, 74 grams protein, and 1403 free water. Also continues to receive propofol for sedation. TF meeting 77% of kcal needs and 101% of protein needs. Follow TF tolerance, labs, etc. -DRT 12/17. Pt excubated and diet continues NPO. Pt on NG suction. Increase intake as tolerated. Pt is no longer receiving Propofol. Random glucose slightly elevated, 147, but no other significant lab concerns. MODESTO CARRINGTON Dec 17, 2017 13:15
[2017-12-17] MEDS: hydrALAZINE HCL 20 MG/ML VIAL IVP PRN (17:56)
[2017-12-17] MEDS: NS(*) 0.9% 500 ML BAG 500 ML IV PRN (23:19)
[2017-12-18] VITALS (56 sets, daily range): BP systolic 120–156; BP diastolic 76–114
[2017-12-18] MEDS: LORazepam 2 MG/ML VIAL IVP PRN ×6 (02:05→23:41)
[2017-12-18 05:11] LABS: PLATELET COUNT, AUTOMATED 604 K/uL (150-450)
[2017-12-18] MEDS: ACETAMINOPHEN(*)1000 MG/100 ML 100 ML IVPB SCH ×4 (05:40→23:35)
[2017-12-18] MEDS: hydrALAZINE HCL 20 MG/ML VIAL IVP PRN (05:40)
[2017-12-18] MEDS: AMPICILLIN/SULBACT (*) 3 GM VL 3 GM in NS(*) 0.9% 100 ML BAG 100 ML IVPB SCH ×4 (06:02→23:55)
--- NOTE | 2017-12-18 06:33 | RADIOLOGY IMAGING REPORT ---
FACILITY: [facility] [place] PATIENT NAME: Helena Nuñez : 1960 MR: [id number] V: [id number] EXAM DATE: ORDERING PHYSICIAN: BARBRA CHATTERJEE TECHNOLOGIST: Location: [facility] Patient: Helena Nuñez : 1960 Visit/Account:[id number] Date of Sevice: 12/18/2017 AP CHEST 12/18/2017 5:00 AM. INDICATION: ARDS COMPARISON: Yesterday. FINDINGS: Endotracheal and esophagogastric tubes have been removed. Right IJ central venous catheter and right chest tube remain in place. Lung expansion is improved. Bilateral mixed opacification is similar t o prior otherwise. Possible small volume of right subpulmonic pneumothorax, unchanged. Chest wall e mphysema is unchanged. Impression: Extubated with increased expansion, otherwise unchanged. Report Dictated By: Deangelo Sanchez MD at 12/18/2017 6:28 AM Report E-Signed By: Deangelo Sanchez MD at 12/18/2017 6:30 AM WSN:[id number]
--- NOTE | 2017-12-18 06:35 | General Surgery Progress Note ---
Subjective Progress Notes Subjective Extubated yesterday. So far doing well. Main complaint this morning is a headache and he feels thirsty. No chest pain. No SOB. Physical Exam Vital Signs Date Time Temp Pulse Resp B/P (MAP) Pulse Ox O2 Delivery O2 Flow Rate FiO2 12/18/17 05:11 76 12/18/17 05:00 98.6 152/94 (113) 12/18/17 04:45 14 97 12/18/17 03:24 Vapotherm 25.0 80.0 General Appearance: Alert, Awake, No Acute Distress, Afebrile Neuro: No Gross deficits Eyes: PERRLA Respiratory: Other (Coarse BS bilaterally) Chest: Other (Chest tube with small volume of serous drainage. No air leak. Chest tube removed.) GI: Soft and Non-Tender Extremities: Warm, Perfused Result Diagram: 12/18/17 0505 12/18/17 0505 Monitor Interpretation: Normal Sinus Rhythm Assessment and Plan Problems: (1) Acute on chronic respiratory failure with hypoxia Status: Acute Assessment & Plan: 12/11/17: Transfer to ICU, intensify pulmonary toilet, High flow nasal cannula, continue Albuterol q 4 h, if no improvement then intubation , and mechanical ventilation. 12/12/17: Pt developed respiratory failure yesterday. Transferred to ICU and intubated yesterday, place a right chest tube, central line, and completed bronchoscopy. Started primaxin for PNA. Now stable. CXR this morning with right pneumothorax even with chest tube seemingly in good position and draining serous fluid. Not tidaling with vent and no obvious air leak on pleurovac. Turned up suction and will check CXR in 4 hours. If still with PTX, will place another chest tube anteriorly to evacuate pneumothorax. Started trophic TF via NG tube, gastric residuals are minimal. Will increase TF slowly to goal rate of 70ml/hr. Start bowel regimen today. Will stop sedation and wean vent as he tolerates. [facility] protocol for EtOH abuse. Banana bag for 3 days. Will discuss smoking cessation before going home. 12/13/17: Pt developed tension PTX yesterday in spite of chest tube present and a second chest tube was placed anteriorly. He has also developed ARDS. He is on a lower tidal volume with faster respiratory rate to avoid lung injury to non -compliant pulmonary segments. He is stable at the moment. CXR this morning c/ w worsening ARDS but no PTX and chest tubes, ETT, central line are in good position. Will place chest tubes to water seal today and check CXR on water seal. Will resume trophic TF via NG tube and follow gastric residuals. If tolerates this today with minimal gastric residuals then will increase feedings later today. Continue bowel regimen. Will conduct daily sedation vacations and work him out on the vent to prevent respiratory muscle atrophy. Continue aggressive pulmonary hygiene, lovenox, PPI. Will have a low threshold to transfer to [facility] for multidisciplinary vent management if we start to see signs of ventilatory trouble, decreasing compliance, problems oxygenating him, etc. I discussed this with his family who is ever-present at his bedside and they seem agreeable with this plan for now but they too would like to have a low threshold to transfer him. 12/14/17: He has done well overnight. Oxygenating well with good lung compliance. Will continue to wean vent slowly as patient tolerates along with daily sedation holidays. Will work on increasing TF to goal of 70cc/hour if he tolerates this. If not, may need to consider TPN. Replace potassium. Continue aggressive pulmonary hygiene, Lovenox, PPI. 12/15/17: ARDS criteria met; Severe; PF ratio today 112; Plateau Pressure 23, Compliance 33; CXR unchanged; Undergoing Lasix diuresis. Remains on lung protective ventilation strategy with 500 cc tidal volume (6.4 cc/kg TV with [place] Body weight by 6 foot height of 77.6 kg). Peep 6, FiO2 50%. Moderate secretions; HOB elevated. 12/16/17: per Dr. Wren's note 12/17/17: Doing better. Now on CPAP PEEP5 PS15 fiO2 40% with SaO2 mid 90s. Will wean PS this morning. If he does well on this then will plan on extubation today. Will leave remaining chest tube in place until after extubation and will plan on removing in the next couple of days if he does well. Continue aggressive pulmonary hygiene. Will hold on TF this morning and will place NG to wall suction to empty stomach in case he extubates today. Continue lasix diuresis. PPI, lovenox. 12/18/17: Doing much better. Extubated yesterday, so far doing well. Has period of agitation and required some ativan overnight due to period of beligerance while cleaning up a BM. Chest tube removed today. CXR later this morning. Will remove coyle and a-line. Start aggressive mobilization, PT/OT, pulmonary hygiene. Start clear diet. PPI, lovenox. Continue ICU care today. If he remains stable over the next 24 hours then will consider transferring him to [facility] tomorrow. (2) Multiple fractures of ribs, right side, initial encounter for closed fracture Status: Acute Assessment & Plan: . 12/09/17: Pain control good with epidural, voiding okay. Continue IS and Vigorous pulmonary toilet. 12/10/17: Having increased chest wall pain this am. Anesthesia will re bolus epidural. Once pain under better control, will need vigorous pulmonary toilet. 12/11/17: Added Gabapentin, IV Tylenol and increased dose of oxycodone for pain control. Despite this he is developing progressive RLL atelectasis and now hypoxemia with increasing O2 requirement. Bilateral patchy infiltrates noted. Afebrile with normal WBC. Will transfer to ICU with high flow NC. Bolus epidural, Intensify pulmonary toilet. Good chance he will require intubation, mechanical ventilation, and even bronchoscopy. 12/15/17: Multiple lateral right-sided rib fractures from the 4-8 ribs as well as posterior fractures of the 7-9 ribs near their vertebral articulations. Pain management with Fentanyl. CT x [address] on the right (3) Pneumothorax Status: Resolved Assessment & Plan: 12/15/17: Right CT x [address] Tension pneumothorax treated on 13 December with a second chest tube. CXR appears that pneumo is resolved (4) Hemothorax, right Status: Resolved Assessment & Plan: 12/09/17: Small hemothorax noted on CT not appreciated on this am CXR, Will recheck CXR in am, H&H stable. 12/10/17: CXR with increase in effusion. Hct down but likely related to IV hydration. Will get repeat CT chest today. Will place chest tube if this fluid appears as blood. Repeat CBC in am. 12/10/17: Chest CT reviewed, will continue to hold off on chest drain, though if increase further than will need pig tail or chest tube. Recheck CXR in am. Radiologist reports 1. Multiple patchy areas of consolidation with an upper lung zone predominance, new from 12/08/2017 most consistent with evolving lung contusions. Multifocal pneumonia is also possible. 2. A small right pleural effusion is larger. A trace left pleural effusion is new. Neither appears hemorrhagic. 3. Previously described fractures including multiple right rib fractures on the right clavicular shaft fracture are stable. 4. Mild coronary artery calcifications. 12/11/17: No significant increase in effusion, if he requires intubation then will place pleural drain. Hct stable 12/15/17: CT x [address], serous only drainage; Inferior chest tube with 160 cc out/ too much to remove today (5) Closed right clavicular fracture Status: Acute Assessment & Plan: 12/09/17: continue to use sling as we mobilize, ice pack, continue Percocet for pain control. 12/10/17: continue with same plan. 12/11/17: less edema, continue ice and sling. 12/15/17: Continues in sling for Right Clavicular fracture; No skin compromise or tenting (6) Abrasions of multiple sites Status: Acute Assessment & Plan: 12/09/17: Received tetanus booster in the past year, Bacitracin to wounds (7) ARDS (adult respiratory distress syndrome) Status: Acute Assessment & Plan: 12/15/17: ARDS criteria met; Severe; PF ratio today 112; Plateau Pressure 23, Compliance 33; CXR unchanged; Undergoing Lasix diuresis. Remains on lung protective ventilation strategy with 500 cc tidal volume (6.4 cc /kg TV with [place] Body weight by 6 foot height of 77.6 kg). Peep 6, FiO2 50%. Moderate secretions; HOB elevated. (8) Depression Status: Chronic Assessment & Plan: Continue home Zoloft. (9) Tension pneumothorax Status: Resolved Assessment & Plan: 12/15/17: CT x 2 on the right; no air leak. CXR stable (10) Volume overload Status: Resolved Assessment & Plan: 12/15/17: Daily weights have gone from 158 admission to 171.8 today with daily ++ balance. BUN/CR are both trending down and are low normals; CVP has trended up from 6 to 8.; CXR appears wet; Given lasix last PM with 2000 cc response. Will give 40 Lasix again this AM (11) At high risk for deep venous thrombosis Status: Acute Assessment & Plan: 12/15/17: High risk for DVT: on Lovenox 30 BID and SCDs; Consider screening duplex on ICU day 5 for high risk population (12) Hypokalemia Status: Resolved Assessment & Plan: 12/15/17: K level 3.2--- replaced with 80 meq potassium; will repeat K level in PM today Central Venous Access Medical Necessity for Access: Hemodynamic Monitoring (Left Femoral [place] in place as well; Monitoring RIJ CVP), IV Access, Medication Administration Condition Guarded Time Spent: < 30 min Exam Sepsis Risk: No Definite Risk Problem Qualifiers (1) Pneumothorax: Pneumothorax type: spontaneous, tension Qualified Codes: J93.0 - Spontaneous tension pneumothorax (2) Closed right clavicular fracture: Encounter type: initial encounter Clavicle location: unspecified part of clavicle Fracture alignment: displaced Qualified Codes: S42.001A - Fracture of unspecified part of right clavicle, initial encounter for closed fracture (3) Depression: Depression Type: unspecified Qualified Codes: F32.9 - Major depressive disorder, single episode, unspecified (4) Volume overload: Hypervolemia type: other Qualified Codes: E87.79 - Other fluid overload BARBRA CHATTERJEE MD Dec 18, 2017 06:35
[2017-12-18] MEDS: MORPHINE 4 MG/ML SDV IVP PRN ×6 (08:02→20:40)
[2017-12-18] MEDS ORDERED: DOCUSATE SODIUM 100 MG CAP PO PRN (08:15)
[2017-12-18] MEDS: SERTRALINE HCL 50 MG TAB PO SCH (08:21)
[2017-12-18] MEDS: THIAMINE HCL 100 MG TAB FT SCH (08:22)
[2017-12-18] MEDS: FOLIC ACID 1 MG TAB FT SCH (08:22)
[2017-12-18] MEDS: PANTOPRAZOLE SOD 40 MG IV VIAL IVP SCH (08:24)
[2017-12-18] MEDS: ENOXAPARIN 30 MG/0.3 ML SYR SC SCH ×2 (08:24→20:40)
[2017-12-18] MEDS ORDERED: POLYETHYLENE GLYCOL 17 GM PKT PO PRN (09:00)
--- NOTE | 2017-12-18 10:30 | Medical Nutrition Therapy ---
Nutrition Anthropometrics Height (Inches): 72.00 Height (Calculated Centimeters: 182.294179 Weight (Pounds): 163 Weight (Calculated Kilograms): 73.936 BMI: 22 Timmy Nutrition Score: Adequate Timmy Nutrition Risk Score: 16 Dietary Referral Nutrition Risk Factors: Nutrition Risk Comment: Nutritional Diagnosis Nutritional Risk Acuity 2: Pr Appetite > 3d Past Medical History: Depression Nutritional Acuity: 2-Moderate Nutrition Diagnosis: Increased Nutrient Needs Nutrition Etiology: Physiological Causes Nutrition Problem/Etiology/Sym: AEB rib fx Energy Requirement: 2300 ([place] X 1.25 AF) Protein Requirement: 73 (1gm/kg) Fluid Requirement: 2200 (30 ml/kg) Diet Type: Clear Liquids Nutrition Intervention: Incr diet as tolerated Additional Diet Restrictions: OFFER CLEAR LIQUID NUTR SUPPLMENT, OTHER NUTR SUPPLMENTS WHEN DIET ADVANCES Diet Comment To [facility]: DO NOT GO IN ROOM UNLESS NURSE SAYS IT IS OK Nutrition Monitoring & Eval Nutrition Goals: Eat 75-100% Meal RD Patient Assessment Time: [address] Assessment Type: RD Re-Assessment Patient Nutrition Acuity: 2-Moderate Follow Up Date: Dec 20, 2017 Nutritional Comment: 12/09 Pt admitted after fall from horse for Abrasions, Hemothorax, Multiple fractures of ribs, and clavicular fracture. Lactate 2.5, Alb 4.5. Within normal wt range with BMI of 22.0. Receiving PARESH and consuming 100% of meals. Follow intake, labs, etc. DRT 12/11 Pt moved to ICU r/t respirtory failure. Pt is currently on mech vent and recieving propofol at 22.1mls/hr. Pt is on TF of jevity at 10ml/hr provideing 255 kcal with additional 583 kcal from Propofol. Current TF order is meeting 25% est kcal and 7% est protein needs. If pt is to remain on mech vent, recommend a final rate of 70 ml/hr which meets 100% est protein needs and 103% est karen needs with the current rate of propofol. 12/12 TF increasing to final rate of 70ml/hr. Currently recieving 20ml/hr and tolerating it well with minimal residuals. Propofol has decreased to 13.2. Final TF will meet 103% est protein needs and 93% est kcal needs with propofol at 13.2. Will cont to monitor. 12/13 TF has been decreased to 10ml/hr. Pt cont mech vent and on propofol. Pt has new dx of ARDS. TF + propofol is meeting 42% of kccal and 7% of protein needs. Recommend slowly increased back to final rate of 70 to meet nutr needs when pt is able. Cont to monitor. BK 12/14 Low H/H, Alb 2.5, Ca+ 7.1, Na+ 135, K+ 3.0, Low BUN/Creat. Jevity TF at 10mL/hr with minimal residuals. Pt also receiving varying amounts of propofol for sedation which contributes 1.1 kcals/mL as fat. MD notes indicate plan to to slowly increase TF to goal of 70cc/hour if pt tolerates and may consider TPN if pt not able to tolerate TF. Monitor TF tolerance, labs, etc. -DRT 12/15 Glu 125, Ca+ 8.1. TF now at 70mL/hr with pt tolerating. Residuals on 12/15 have been 35 - 160mL. TF providing 1781 kcals, 74 grams protein, and 1403 free water. Also continues to receive propofol for sedation. TF meeting 77% of kcal needs and 101% of protein needs. Follow TF tolerance, labs, etc. -DRT 12/17. Pt excubated and diet continues NPO. Pt on NG suction. Increase intake as tolerated. Pt is no longer receiving Propofol. Random glucose slightly elevated, 147, but no other significant lab concerns. MR 8/7 Diet advanced to clears. Pt is combative and nurse is providing the clear liquid diet. Alb cont low but trending upwards at 2.6. Wt is back down to his admitting wt following a 10# wt gain. Will cont to monitor. KENISHA DAVIS Dec 18, 2017 10:30
--- NOTE | 2017-12-18 10:32 | Hospitalist Progress Note ---
Subjective Progress Notes Subjective 57M presented with R sided rib Fx, extubated yesterday. This am appears to be in pain and is uncooperative with staff. Fentanyl drip was stopped this am. Appearance and cooperation improved with 2mg IV morphine. Physical Exam Vital Signs Date Time Temp Pulse Resp B/P (MAP) Pulse Ox O2 Delivery O2 Flow Rate FiO2 12/18/17 08:40 94 Vapotherm 20.0 80.0 12/18/17 06:30 90 23 120/79 (93) 12/18/17 06:00 98.6 General Appearance: Awake, Afebrile Neuro: No Gross deficits Eyes: PERRLA ENT: Normal Neck: No Masses Cardiovascular: Normal Rhythm & Peripheral Pulses Respiratory: Other (Vapotherm) Chest: No Masses GI: Soft and Non-Tender : Normal (+ Pearson) Lymph: Cervical Nodes Benign Extremities: Warm, Pulses, Perfused Integumentary: Skin Intact without Lesion / Mass Psych: Alert & Oriented X3 Result Diagram: 12/18/17 0505 12/18/17 0505 Monitor Interpretation: Normal Sinus Rhythm Assessment and Plan Problems: (1) Acute respiratory failure with hypoxia Assessment & Plan: He was intubated on 12/11. Extubated 12.17.2017. On Vapotherm this am and titrating rate down. (2) Pneumothorax Status: Resolved Assessment & Plan: Chest tube removed this am. (3) Aspiration pneumonia Assessment & Plan: He did have an aspiration event and developed bilateral infiltrates. His sputum culture was positive for group B Streptococcus. He is on treatment with Unasyn. Has been afebrile since 12.16 would recommend stopping Abx on 12.21 and monitoring, (4) Alcohol dependence Assessment & Plan: Now on Ativan PRN. He is receiving supplemental thiamine. (5) NICOTINE DEPENDENCE, CIGARETTES, UNCOMPLICATED Assessment & Plan: 2ppd smoker per . (6) Closed right clavicular fracture Status: Acute Assessment & Plan: Per surgery, immobilize in sling, morphine for pain. (7) Right rib fracture Assessment & Plan: Per surgery, analgesia fentanyl/ketamine while intubated. Central Venous Access Medical Necessity for Access: Hemodynamic Monitoring (Left Femoral [place] in place as well; Monitoring RIJ CVP), IV Access, Medication Administration Exam Sepsis Risk: No Definite Risk Problem Qualifiers (1) Pneumothorax: Pneumothorax type: chronic pneumothorax Qualified Codes: J93.81 - Chronic pneumothorax (2) Closed right clavicular fracture: Encounter type: initial encounter Clavicle location: unspecified part of clavicle Fracture alignment: displaced Qualified Codes: S42.001A - Fracture of unspecified part of right clavicle, initial encounter for closed fracture TROY YAO DO Dec 18, 2017 10:32
--- NOTE | 2017-12-18 15:02 | RADIOLOGY IMAGING REPORT ---
FACILITY: [facility] PATIENT NAME: Helena Nuñez : 1960 MR: [id number] V: [id number] EXAM DATE: ORDERING PHYSICIAN: BARBRA CHATTERJEE TECHNOLOGIST: Location: [facility] - [place] Patient: Helena Nuñez : 1960 Visit/Account:[id number] Date of Sevice: 12/18/2017 Exam type: CHEST SINGLE AP History: Removed right chest tube Comparison: December 18, 2017 5:34 AM. Findings: Right IJ catheter appears unchanged. The right chest tube is been removed. No gross evidence of a p neumothorax however the patient's chin overlies the right pulmonary apex. The patchy airspace consol idation in the lungs appear slightly more prominent bilaterally although could be exaggerated due to hypoventilatory changes. The cardiac silhouette appears stable. IMPRESSION: 1. Interval removal of the right chest tube. No definite right-sided pneumothorax seen although the right pulmonary apex is obscured due to overlapping shadows from the patient's chin. Patchy airspace consolidation in both lungs appears slightly more prominent although could be exagger ated due to hypoventilatory changes Report Dictated By: Krista Almendarez MD at 12/18/2017 2:56 PM Report E-Signed By: Krista Almendarez MD at 12/18/2017 2:58 PM WSN:[email or web address]
[2017-12-19] VITALS (39 sets, daily range): BP systolic 118–181; BP diastolic 75–166
[2017-12-19] MEDS: MORPHINE 4 MG/ML SDV IVP PRN ×2 (00:31→04:27)
[2017-12-19] MEDS: LORazepam 2 MG/ML VIAL IVP PRN (01:42)
[2017-12-19 05:43] LABS: PLATELET COUNT, AUTOMATED 602 K/uL (150-450)
[2017-12-19] MEDS: ACETAMINOPHEN(*)1000 MG/100 ML 100 ML IVPB SCH ×2 (05:58→12:00)
[2017-12-19] MEDS: AMPICILLIN/SULBACT (*) 3 GM VL 3 GM in NS(*) 0.9% 100 ML BAG 100 ML IVPB SCH ×3 (05:58→17:50)
--- NOTE | 2017-12-19 06:25 | RADIOLOGY IMAGING REPORT ---
FACILITY[place] [facility] [place]IENT NAME: Helena Nuñez : 1960 MR: [id number] V: [id number] EXAM DATE: ORDERING PHYSICIAN: BARBRA CHATTERJEE TECHNOLOGIST: Location: [facility] [place] Patient: Helena Nuñez : 1960 Visit/Account:[id number] Date of Sevice: 12/19/2017 AP CHEST 12/19/2017 5:00 AM. INDICATION: ARDS, PNA COMPARISON: Yesterday. FINDINGS: Right IJ central venous catheter remains in place Lung expansion is improved, with decreased atelecta sis. Otherwise mixed opacification is similar to prior . No definite pneumothorax. Chest wall emph ysema is unchanged. Impression: Improved expansion with decreased atelectasis, otherwise not significantly changed. Report Dictated By: Deangelo Sanchez MD at 12/19/2017 6:21 AM Report E-Signed By: Deangelo Sanchez MD at 12/19/2017 6:22 AM WSN:[id number]
[2017-12-19] MEDS ORDERED: KCL (*) 20 MEQ/100 ML PREMIX 100 ML IV SCH (07:20)
--- NOTE | 2017-12-19 07:29 | General Surgery Progress Note ---
Subjective Progress Notes Subjective No complaints this mornings. Seems a little confused. Physical Exam Vital Signs Date Time Temp Pulse Resp B/P (MAP) Pulse Ox O2 Delivery O2 Flow Rate FiO2 12/19/17 06:03 64 12/19/17 06:00 22 150/90 (110) 92 Vapotherm 15.0 50.0 12/19/17 04:00 99.3 Intake and Output 12/20/17 07:00 Intake Total 200 ml Output Total 240 ml Balance -40 ml Intake Oral 200 ml Output Urine Total 240 ml # Voids 1 General Appearance: Alert, Awake, No Acute Distress, Afebrile Cardiovascular: Regular Rate and Rhythm Respiratory: Other (Coarse bilaterally, improving) Chest: Other (Chest tube dressings are C/D/I.) GI: Soft and Non-Tender Extremities: Warm, Perfused Result Diagram: 12/19/17 0527 12/19/17526 Monitor Interpretation: Normal Sinus Rhythm Assessment and Plan Problems: (1) Acute on chronic respiratory failure with hypoxia Status: Acute Assessment & Plan: 12/11/17: Transfer to ICU, intensify pulmonary toilet, High flow nasal cannula, continue Albuterol q 4 h, if no improvement then intubation , and mechanical ventilation. 12/12/17: Pt developed respiratory failure yesterday. Transferred to ICU and intubated yesterday, place a right chest tube, central line, and completed bronchoscopy. Started primaxin for PNA. Now stable. CXR this morning with right pneumothorax even with chest tube seemingly in good position and draining serous fluid. Not tidaling with vent and no obvious air leak on pleurovac. Turned up suction and will check CXR in 4 hours. If still with PTX, will place another chest tube anteriorly to evacuate pneumothorax. Started trophic TF via NG tube, gastric residuals are minimal. Will increase TF slowly to goal rate of 70ml/hr. Start bowel regimen today. Will stop sedation and wean vent as he tolerates. [facility] protocol for EtOH abuse. Banana bag for 3 days. Will discuss smoking cessation before going home. 12/13/17: Pt developed tension PTX yesterday in spite of chest tube present and a second chest tube was placed anteriorly. He has also developed ARDS. He is on a lower tidal volume with faster respiratory rate to avoid lung injury to non -compliant pulmonary segments. He is stable at the moment. CXR this morning c/ w worsening ARDS but no PTX and chest tubes, ETT, central line are in good position. Will place chest tubes to water seal today and check CXR on water seal. Will resume trophic TF via NG tube and follow gastric residuals. If tolerates this today with minimal gastric residuals then will increase feedings later today. Continue bowel regimen. Will conduct daily sedation vacations and work him out on the vent to prevent respiratory muscle atrophy. Continue aggressive pulmonary hygiene, lovenox, PPI. Will have a low threshold to transfer to [facility] for multidisciplinary vent management if we start to see signs of ventilatory trouble, decreasing compliance, problems oxygenating him, etc. I discussed this with his family who is ever-present at his bedside and they seem agreeable with this plan for now but they too would like to have a low threshold to transfer him. 12/14/17: He has done well overnight. Oxygenating well with good lung compliance. Will continue to wean vent slowly as patient tolerates along with daily sedation holidays. Will work on increasing TF to goal of 70cc/hour if he tolerates this. If not, may need to consider TPN. Replace potassium. Continue aggressive pulmonary hygiene, Lovenox, PPI. 12/15/17: ARDS criteria met; Severe; PF ratio today 112; Plateau Pressure 23, Compliance 33; CXR unchanged; Undergoing Lasix diuresis. Remains on lung protective ventilation strategy with 500 cc tidal volume (6.4 cc/kg TV with [place] Body weight by 6 foot height of 77.6 kg). Peep 6, FiO2 50%. Moderate secretions; HOB elevated. 12/16/17: per Dr. Wren's note 12/17/17: Doing better. Now on CPAP PEEP5 PS15 fiO2 40% with SaO2 mid 90s. Will wean PS this morning. If he does well on this then will plan on extubation today. Will leave remaining chest tube in place until after extubation and will plan on removing in the next couple of days if he does well. Continue aggressive pulmonary hygiene. Will hold on TF this morning and will place NG to wall suction to empty stomach in case he extubates today. Continue lasix diuresis. PPI, lovenox. 12/18/17: Doing much better. Extubated yesterday, so far doing well. Has period of agitation and required some ativan overnight due to period of beligerance while cleaning up a BM. Chest tube removed today. CXR later this morning. Will remove coyle and a-line. Start aggressive mobilization, PT/OT, pulmonary hygiene. Start clear diet. PPI, lovenox. Continue ICU care today. If he remains stable over the next 24 hours then will consider transferring him to [facility] tomorrow. 12/19/17: Continued improvement. Still having periods of confusion but slowly clearing. Will get head CT today. Will try to wean down narcotics and benzos. CXR improving. Oxygenating well on vapotherm canula. Increase mobilization, PT/OT. Continue aggressive pulmonary hygiene, IS. Will start regular diet. Continue lovenox and PPI, will start PO meds. May consider transfer to Med/ Surg later today if he continues to improve. (2) Multiple fractures of ribs, right side, initial encounter for closed fracture Status: Acute Assessment & Plan: . 12/09/17: Pain control good with epidural, voiding okay. Continue IS and Vigorous pulmonary toilet. 12/10/17: Having increased chest wall pain this am. Anesthesia will re bolus epidural. Once pain under better control, will need vigorous pulmonary toilet. 12/11/17: Added Gabapentin, IV Tylenol and increased dose of oxycodone for pain control. Despite this he is developing progressive RLL atelectasis and now hypoxemia with increasing O2 requirement. Bilateral patchy infiltrates noted. Afebrile with normal WBC. Will transfer to ICU with high flow NC. Bolus epidural, Intensify pulmonary toilet. Good chance he will require intubation, mechanical ventilation, and even bronchoscopy. 12/15/17: Multiple lateral right-sided rib fractures from the 4-8 ribs as well as posterior fractures of the 7-9 ribs near their vertebral articulations. Pain management with Fentanyl. CT x [address] on the right (3) Pneumothorax Status: Resolved Assessment & Plan: 12/15/17: Right CT x [address] Tension pneumothorax treated on 13 December with a second chest tube. CXR appears that pneumo is resolved (4) Hemothorax, right Status: Resolved Assessment & Plan: 12/09/17: Small hemothorax noted on CT not appreciated on this am CXR, Will recheck CXR in am, H&H stable. 12/10/17: CXR with increase in effusion. Hct down but likely related to IV hydration. Will get repeat CT chest today. Will place chest tube if this fluid appears as blood. Repeat CBC in am. 12/10/17: Chest CT reviewed, will continue to hold off on chest drain, though if increase further than will need pig tail or chest tube. Recheck CXR in am. Radiologist reports 1. Multiple patchy areas of consolidation with an upper lung zone predominance, new from 12/08/2017 most consistent with evolving lung contusions. Multifocal pneumonia is also possible. 2. A small right pleural effusion is larger. A trace left pleural effusion is new. Neither appears hemorrhagic. 3. Previously described fractures including multiple right rib fractures on the right clavicular shaft fracture are stable. 4. Mild coronary artery calcifications. 12/11/17: No significant increase in effusion, if he requires intubation then will place pleural drain. Hct stable 12/15/17: CT x [address], serous only drainage; Inferior chest tube with 160 cc out/ too much to remove today (5) Closed right clavicular fracture Status: Acute Assessment & Plan: 12/09/17: continue to use sling as we mobilize, ice pack, continue Percocet for pain control. 12/10/17: continue with same plan. 12/11/17: less edema, continue ice and sling. 12/15/17: Continues in sling for Right Clavicular fracture; No skin compromise or tenting (6) Abrasions of multiple sites Status: Acute Assessment & Plan: 12/09/17: Received tetanus booster in the past year, Bacitracin to wounds (7) ARDS (adult respiratory distress syndrome) Status: Acute Assessment & Plan: 12/15/17: ARDS criteria met; Severe; PF ratio today 112; Plateau Pressure 23, Compliance 33; CXR unchanged; Undergoing Lasix diuresis. Remains on lung protective ventilation strategy with 500 cc tidal volume (6.4 cc /kg TV with [place] Body weight by 6 foot height of 77.6 kg). Peep 6, FiO2 50%. Moderate secretions; HOB elevated. (8) Depression Status: Chronic Assessment & Plan: Continue home Zoloft. (9) Tension pneumothorax Status: Resolved Assessment & Plan: 12/15/17: CT x 2 on the right; no air leak. CXR stable (10) Volume overload Status: Resolved Assessment & Plan: 12/15/17: Daily weights have gone from 158 admission to 171.8 today with daily ++ balance. BUN/CR are both trending down and are low normals; CVP has trended up from 6 to 8.; CXR appears wet; Given lasix last PM with 2000 cc response. Will give 40 Lasix again this AM (11) At high risk for deep venous thrombosis Status: Acute Assessment & Plan: 12/15/17: High risk for DVT: on Lovenox 30 BID and SCDs; Consider screening duplex on ICU day 5 for high risk population (12) Hypokalemia Status: Resolved Assessment & Plan: 12/15/17: K level 3.2--- replaced with 80 meq potassium; will repeat K level in PM today Central Venous Access Medical Necessity for Access: Hemodynamic Monitoring (Left Femoral [address] in place as well; Monitoring RIJ CVP), IV Access, Medication Administration Condition Stable. Time Spent: < 30 min Exam Sepsis Risk: No Definite Risk Problem Qualifiers (1) Pneumothorax: Pneumothorax type: chronic pneumothorax Qualified Codes: J93.81 - Chronic pneumothorax (2) Closed right clavicular fracture: Encounter type: initial encounter Clavicle location: unspecified part of clavicle Fracture alignment: displaced Qualified Codes: S42.001A - Fracture of unspecified part of right clavicle, initial encounter for closed fracture (3) Depression: Depression Type: unspecified Qualified Codes: F32.9 - Major depressive disorder, single episode, unspecified (4) Volume overload: Hypervolemia type: other Qualified Codes: E87.79 - Other fluid overload BARBRA CHATTERJEE MD Dec 19, 2017 07:29
[2017-12-19] MEDS ORDERED: QUEtiapine FUM 25 MG TAB PO PRN (08:40)
--- NOTE | 2017-12-19 08:53 | Hospitalist Progress Note ---
Subjective Progress Notes Subjective The patient is denying any pain. Still confused, per staff. Physical Exam Vital Signs Date Time Temp Pulse Resp B/P (MAP) Pulse Ox O2 Delivery O2 Flow Rate FiO2 12/19/17 07:34 93 Vapotherm 12.0 50.0 12/19/17 06:03 64 12/19/17 06:00 22 150/90 (110) 12/19/17 04:00 99.3 Intake and Output 12/20/17 07:00 Intake Total 200 ml Output Total 240 ml Balance -40 ml Intake Oral 200 ml Output Urine Total 240 ml # Voids 1 General Appearance: Alert, Awake, Other (Mild increased wob) Neuro: Other (Wanting a phone to call his . Confused to place and events) Result Diagram: 12/19/1752612/19/17526 Monitor Interpretation: Normal Sinus Rhythm Assessment and Plan Problems: (1) Confusion Status: Acute Assessment & Plan: Likely, secondary to prolonged sedation for intubation, and illness. Improving. Will try scheduled melatonin and prn Seroquel for agitation to minimize benzo use. (2) Acute respiratory failure with hypoxia Assessment & Plan: He was intubated on 12/11. Extubated 12/17. On Vapotherm this am and titrating rate down. (3) Pneumothorax Status: Resolved Assessment & Plan: Chest tube removed this am. (4) Aspiration pneumonia Assessment & Plan: He did have an aspiration event and developed bilateral infiltrates. His sputum culture was positive for group B Streptococcus. He is on treatment with Unasyn. Has been afebrile since 12/16 would recommend stopping Abx on 12/21 and monitoring, (5) Alcohol dependence Assessment & Plan: He is through the withdrawal. Now on Ativan PRN. He is receiving supplemental thiamine. (6) NICOTINE DEPENDENCE, CIGARETTES, UNCOMPLICATED Assessment & Plan: 2ppd smoker per . (7) Closed right clavicular fracture Status: Acute Assessment & Plan: Per surgery, immobilize in sling, morphine for pain. (8) Right rib fracture Assessment & Plan: Per surgery. Central Venous Access Medical Necessity for Access: Hemodynamic Monitoring (Left Femoral [place] in place as well; Monitoring RIJ CVP), IV Access, Medication Administration Exam Sepsis Risk: No Definite Risk Problem Qualifiers (1) Pneumothorax: Pneumothorax type: chronic pneumothorax Qualified Codes: J93.81 - Chronic pneumothorax (2) Closed right clavicular fracture: Encounter type: initial encounter Clavicle location: unspecified part of clavicle Fracture alignment: displaced Qualified Codes: S42.001A - Fracture of unspecified part of right clavicle, initial encounter for closed fracture MARINA MAIER MD Dec 19, 2017 08:53
[2017-12-19] MEDS ORDERED: IOPAMIDOL 76% 100 ML INFUS BTL 0 ML ONE (09:10)
[2017-12-19] MEDS: PANTOPRAZOLE SOD 40 MG TABEC PO SCH (09:32)
[2017-12-19] MEDS: SERTRALINE HCL 50 MG TAB PO SCH (09:32)
[2017-12-19] MEDS: ENOXAPARIN 30 MG/0.3 ML SYR SC SCH ×2 (09:33→20:30)
[2017-12-19] MEDS ORDERED: IOPAMIDOL 76% 100 ML INFUS BTL 100 ML ONE (10:27)
[2017-12-19] MEDS ORDERED: KCL (*) 20 MEQ/100 ML PREMIX 100 ML IVPB ONE (13:30)
[2017-12-19] MEDS: MELATONIN 3 MG TAB PO SCH (20:30)
[2017-12-20] VITALS (12 sets, daily range): BP systolic 132–162; BP diastolic 74–100
[2017-12-20] MEDS: AMPICILLIN/SULBACT (*) 3 GM VL 3 GM in NS(*) 0.9% 100 ML BAG 100 ML IVPB SCH ×2 (00:05→06:25)
[2017-12-20] MEDS: fentaNYL CITR 100 MCG/2 ML AMP IVP PRN ×7 (00:05→22:49)
[2017-12-20] MEDS: NS(*) 0.9% 500 ML BAG 500 ML IV PRN (00:05)
[2017-12-20] MEDS ORDERED: VANCOMYCIN HCL 125 MG CAPSULE PO SCH ×4 (02:00→08:00)
[2017-12-20] MEDS: LORazepam 2 MG/ML VIAL IVP PRN (02:47)
[2017-12-20 06:19] LABS: PLATELET COUNT, AUTOMATED 707 K/uL (150-450)
[2017-12-20] MEDS ORDERED: KCL (*) 20 MEQ/100 ML PREMIX 100 ML IV SCH ×2 (06:45→10:20)
--- NOTE | 2017-12-20 06:53 | General Surgery Progress Note ---
Subjective Progress Notes Subjective Feeling good. Having diarrhea. C.diff antigen positive, PO vanco started. Unasyn stopped this morning. Feels hungry. Physical Exam Vital Signs Date Time Temp Pulse Resp B/P (MAP) Pulse Ox O2 Delivery O2 Flow Rate FiO2 12/20/17 06:00 69 26 162/100 (120) 87 15.0 65.0 12/19/17 23:59 98.2 12/19/17 23:30 Vapotherm General Appearance: Alert, Awake, No Acute Distress, Afebrile Respiratory: Other (Coarse BS bilaterally but continuing to improve.) Chest: Other (Dressings on right chest from chest tubes C/D/I.) GI: Soft and Non-Tender Extremities: Warm, Perfused Result Diagram: 12/19/17 0512/20/17 0602 Monitor Interpretation: Normal Sinus Rhythm Assessment and Plan Problems: (1) Acute on chronic respiratory failure with hypoxia Status: Acute Assessment & Plan: 12/11/17: Transfer to ICU, intensify pulmonary toilet, High flow nasal cannula, continue Albuterol q 4 h, if no improvement then intubation , and mechanical ventilation. 12/12/17: Pt developed respiratory failure yesterday. Transferred to ICU and intubated yesterday, place a right chest tube, central line, and completed bronchoscopy. Started primaxin for PNA. Now stable. CXR this morning with right pneumothorax even with chest tube seemingly in good position and draining serous fluid. Not tidaling with vent and no obvious air leak on pleurovac. Turned up suction and will check CXR in 4 hours. If still with PTX, will place another chest tube anteriorly to evacuate pneumothorax. Started trophic TF via NG tube, gastric residuals are minimal. Will increase TF slowly to goal rate of 70ml/hr. Start bowel regimen today. Will stop sedation and wean vent as he tolerates. [facility] protocol for EtOH abuse. Banana bag for 3 days. Will discuss smoking cessation before going home. 12/13/17: Pt developed tension PTX yesterday in spite of chest tube present and a second chest tube was placed anteriorly. He has also developed ARDS. He is on a lower tidal volume with faster respiratory rate to avoid lung injury to non -compliant pulmonary segments. He is stable at the moment. CXR this morning c/ w worsening ARDS but no PTX and chest tubes, ETT, central line are in good position. Will place chest tubes to water seal today and check CXR on water seal. Will resume trophic TF via NG tube and follow gastric residuals. If tolerates this today with minimal gastric residuals then will increase feedings later today. Continue bowel regimen. Will conduct daily sedation vacations and work him out on the vent to prevent respiratory muscle atrophy. Continue aggressive pulmonary hygiene, lovenox, PPI. Will have a low threshold to transfer to [facility] for multidisciplinary vent management if we start to see signs of ventilatory trouble, decreasing compliance, problems oxygenating him, etc. I discussed this with his family who is ever-present at his bedside and they seem agreeable with this plan for now but they too would like to have a low threshold to transfer him. 12/14/17: He has done well overnight. Oxygenating well with good lung compliance. Will continue to wean vent slowly as patient tolerates along with daily sedation holidays. Will work on increasing TF to goal of 70cc/hour if he tolerates this. If not, may need to consider TPN. Replace potassium. Continue aggressive pulmonary hygiene, Lovenox, PPI. 12/15/17: ARDS criteria met; Severe; PF ratio today 112; Plateau Pressure 23, Compliance 33; CXR unchanged; Undergoing Lasix diuresis. Remains on lung protective ventilation strategy with 500 cc tidal volume (6.4 cc/kg TV with [place] Body weight by 6 foot height of 77.6 kg). Peep 6, FiO2 50%. Moderate secretions; HOB elevated. 12/16/17: per Dr. Wren's note 12/17/17: Doing better. Now on CPAP PEEP5 PS15 fiO2 40% with SaO2 mid 90s. Will wean PS this morning. If he does well on this then will plan on extubation today. Will leave remaining chest tube in place until after extubation and will plan on removing in the next couple of days if he does well. Continue aggressive pulmonary hygiene. Will hold on TF this morning and will place NG to wall suction to empty stomach in case he extubates today. Continue lasix diuresis. PPI, lovenox. 12/18/17: Doing much better. Extubated yesterday, so far doing well. Has period of agitation and required some ativan overnight due to period of beligerance while cleaning up a BM. Chest tube removed today. CXR later this morning. Will remove coyle and a-line. Start aggressive mobilization, PT/OT, pulmonary hygiene. Start clear diet. PPI, lovenox. Continue ICU care today. If he remains stable over the next 24 hours then will consider transferring him to [facility] tomorrow. 12/19/17: Continued improvement. Still having periods of confusion but slowly clearing. Will get head CT today. Will try to wean down narcotics and benzos. CXR improving. Oxygenating well on vapotherm canula. Increase mobilization, PT/OT. Continue aggressive pulmonary hygiene, IS. Will start regular diet. Continue lovenox and PPI, will start PO meds. May consider transfer to Med/ Surg later today if he continues to improve. 12/20/17: Continued improvement. Developed C.diff diarrhea so unasyn stopped and PO vanco started. Mentally cleared and close to baseline so head CT canceled. Continue to work with PT/OT and strength and mobility. Continue to wean down O2. Continue aggressive pulmonary hygiene, IS. Tolerating regular diet. Continue lovenox and PPI. Replace potassium. Will start daily oral potassium replacement since he's been requiring it daily and will follow serum potassium. Transfer to Med/Surg today. (2) Multiple fractures of ribs, right side, initial encounter for closed fracture Status: Acute Assessment & Plan: . 12/09/17: Pain control good with epidural, voiding okay. Continue IS and Vigorous pulmonary toilet. 12/10/17: Having increased chest wall pain this am. Anesthesia will re bolus epidural. Once pain under better control, will need vigorous pulmonary toilet. 12/11/17: Added Gabapentin, IV Tylenol and increased dose of oxycodone for pain control. Despite this he is developing progressive RLL atelectasis and now hypoxemia with increasing O2 requirement. Bilateral patchy infiltrates noted. Afebrile with normal WBC. Will transfer to ICU with high flow NC. Bolus epidural, Intensify pulmonary toilet. Good chance he will require intubation, mechanical ventilation, and even bronchoscopy. 12/15/17: Multiple lateral right-sided rib fractures from the 4-8 ribs as well as posterior fractures of the 7-9 ribs near their vertebral articulations. Pain management with Fentanyl. CT x [address] on the right (3) Pneumothorax Status: Resolved Assessment & Plan: 12/15/17: Right CT x [address] Tension pneumothorax treated on 13 December with a second chest tube. CXR appears that pneumo is resolved (4) Hemothorax, right Status: Resolved Assessment & Plan: 12/09/17: Small hemothorax noted on CT not appreciated on this am CXR, Will recheck CXR in am, H&H stable. 12/10/17: CXR with increase in effusion. Hct down but likely related to IV hydration. Will get repeat CT chest today. Will place chest tube if this fluid appears as blood. Repeat CBC in am. 12/10/17: Chest CT reviewed, will continue to hold off on chest drain, though if increase further than will need pig tail or chest tube. Recheck CXR in am. Radiologist reports 1. Multiple patchy areas of consolidation with an upper lung zone predominance, new from 12/08/2017 most consistent with evolving lung contusions. Multifocal pneumonia is also possible. 2. A small right pleural effusion is larger. A trace left pleural effusion is new. Neither appears hemorrhagic. 3. Previously described fractures including multiple right rib fractures on the right clavicular shaft fracture are stable. 4. Mild coronary artery calcifications. 12/11/17: No significant increase in effusion, if he requires intubation then will place pleural drain. Hct stable 12/15/17: CT x [address], serous only drainage; Inferior chest tube with 160 cc out/ too much to remove today (5) Closed right clavicular fracture Status: Acute Assessment & Plan: 12/09/17: continue to use sling as we mobilize, ice pack, continue Percocet for pain control. 12/10/17: continue with same plan. 12/11/17: less edema, continue ice and sling. 12/15/17: Continues in sling for Right Clavicular fracture; No skin compromise or tenting (6) Abrasions of multiple sites Status: Acute Assessment & Plan: 12/09/17: Received tetanus booster in the past year, Bacitracin to wounds (7) ARDS (adult respiratory distress syndrome) Status: Acute Assessment & Plan: 12/15/17: ARDS criteria met; Severe; PF ratio today 112; Plateau Pressure 23, Compliance 33; CXR unchanged; Undergoing Lasix diuresis. Remains on lung protective ventilation strategy with 500 cc tidal volume (6.4 cc /kg TV with [place] Body weight by 6 foot height of 77.6 kg). Peep 6, FiO2 50%. Moderate secretions; HOB elevated. (8) Depression Status: Chronic Assessment & Plan: Continue home Zoloft. (9) Tension pneumothorax Status: Resolved Assessment & Plan: 12/15/17: CT x 2 on the right; no air leak. CXR stable (10) Volume overload Status: Resolved Assessment & Plan: 12/15/17: Daily weights have gone from 158 admission to 171.8 today with daily ++ balance. BUN/CR are both trending down and are low normals; CVP has trended up from 6 to 8.; CXR appears wet; Given lasix last PM with 2000 cc response. Will give 40 Lasix again this AM (11) At high risk for deep venous thrombosis Status: Acute Assessment & Plan: 12/15/17: High risk for DVT: on Lovenox 30 BID and SCDs; Consider screening duplex on ICU day 5 for high risk population (12) Hypokalemia Status: Resolved Assessment & Plan: 12/15/17: K level 3.2--- replaced with 80 meq potassium; will repeat K level in PM today (13) C. difficile diarrhea Status: Acute Assessment & Plan: Start PO vanco, stop other abx. Central Venous Access Medical Necessity for Access: Hemodynamic Monitoring (Left Femoral [place] in place as well; Monitoring RIJ CVP), IV Access, Medication Administration Condition Stable. Time Spent: < 30 min Exam Sepsis Risk: No Definite Risk Problem Qualifiers (1) Pneumothorax: Pneumothorax type: chronic pneumothorax Qualified Codes: J93.81 - Chronic pneumothorax (2) Closed right clavicular fracture: Encounter type: initial encounter Clavicle location: unspecified part of clavicle Fracture alignment: displaced Qualified Codes: S42.001A - Fracture of unspecified part of right clavicle, initial encounter for closed fracture (3) Depression: Depression Type: unspecified Qualified Codes: F32.9 - Major depressive disorder, single episode, unspecified (4) Volume overload: Hypervolemia type: other Qualified Codes: E87.79 - Other fluid overload BARBRA CHATTERJEE MD Dec 20, 2017 06:52
--- NOTE | 2017-12-20 08:14 | Medical Nutrition Therapy ---
Nutrition Anthropometrics Height (Inches): 72.00 Height (Calculated Centimeters: 182.730564 Weight (Pounds): 164 Weight (Calculated Kilograms): 74.417 BMI: 22 Timmy Nutrition Score: Adequate Timmy Nutrition Risk Score: 16 Dietary Referral Nutrition Risk Factors: Nutrition Risk Comment: Nutritional Diagnosis Nutritional Risk Acuity 2: Pr Appetite > 3d Past Medical History: Depression Nutritional Acuity: 2-Moderate Nutrition Diagnosis: Increased Nutrient Needs Nutrition Etiology: Physiological Causes Nutrition Problem/Etiology/Sym: AEB rib fx Energy Requirement: 2300 ([place] X 1.25 AF) Protein Requirement: 73 (1gm/kg) Fluid Requirement: 2200 (30 ml/kg) Diet Type: Diet as Tolerated PARESH/REG Nutrition Intervention: Cont diet as ordered, Encourage intake Additional Diet Restrictions: OFFER CLEAR LIQUID NUTR SUPPLMENT, OTHER NUTR SUPPLMENTS WHEN DIET ADVANCES Diet Comment To [facility]: DO NOT GO IN ROOM UNLESS NURSE SAYS IT IS OK Nutrition Monitoring & Eval Nutrition Goals: Eat 50-100% Meal, Drink > 2 liters/day (30ml/kg) RD Patient Assessment Time: [address] Assessment Type: RD Re-Assessment Patient Nutrition Acuity: 2-Moderate Follow Up Date: Dec 21, 2017 Nutritional Comment: 12/09 Pt admitted after fall from horse for Abrasions, Hemothorax, Multiple fractures of ribs, and clavicular fracture. Lactate 2.5, Alb 4.5. Within normal wt range with BMI of 22.0. Receiving PARESH and consuming 100% of meals. Follow intake, labs, etc. DRT 12/11 Pt moved to ICU r/t respirtory failure. Pt is currently on mech vent and recieving propofol at 22.1mls/hr. Pt is on TF of jevity at 10ml/hr provideing 255 kcal with additional 583 kcal from Propofol. Current TF order is meeting 25% est kcal and 7% est protein needs. If pt is to remain on mech vent, recommend a final rate of 70 ml/hr which meets 100% est protein needs and 103% est karen needs with the current rate of propofol. 12/12 TF increasing to final rate of 70ml/hr. Currently recieving 20ml/hr and tolerating it well with minimal residuals. Propofol has decreased to 13.2. Final TF will meet 103% est protein needs and 93% est kcal needs with propofol at 13.2. Will cont to monitor. 12/13 TF has been decreased to 10ml/hr. Pt cont mech vent and on propofol. Pt has new dx of ARDS. TF + propofol is meeting 42% of kccal and 7% of protein needs. Recommend slowly increased back to final rate of 70 to meet nutr needs when pt is able. Cont to monitor. BK 12/14 Low H/H, Alb 2.5, Ca+ 7.1, Na+ 135, K+ 3.0, Low BUN/Creat. Jevity TF at 10mL/hr with minimal residuals. Pt also receiving varying amounts of propofol for sedation which contributes 1.1 kcals/mL as fat. MD notes indicate plan to to slowly increase TF to goal of 70cc/hour if pt tolerates and may consider TPN if pt not able to tolerate TF. Monitor TF tolerance, labs, etc. -DRT 12/15 Glu 125, Ca+ 8.1. TF now at 70mL/hr with pt tolerating. Residuals on 12/15 have been 35 - 160mL. TF providing 1781 kcals, 74 grams protein, and 1403 free water. Also continues to receive propofol for sedation. TF meeting 77% of kcal needs and 101% of protein needs. Follow TF tolerance, labs, etc. -DRT 12/17. Pt excubated and diet continues NPO. Pt on NG suction. Increase intake as tolerated. Pt is no longer receiving Propofol. Random glucose slightly elevated, 147, but no other significant lab concerns. MR 8/ Diet advanced to clears. Pt is combative and nurse is providing the clear liquid diet. Alb cont low but trending upwards at 2.6. Wt is back down to his admitting wt following a 10# wt gain. Will cont to monitor. BK 12/19. Diet changed to PARESH, currently no meals to report. Pt does not report any pain. Seemed confused according to nurse. No significant lab concerns. Pt BMI is in normal range, 22.3. Cont to monitor intake, encourage intake, and will monitor labs. MODESTO CARRINGTON Dec 19, 2017 14:46
[2017-12-20] MEDS: PANTOPRAZOLE SOD 40 MG TABEC PO SCH (09:22)
[2017-12-20] MEDS: SERTRALINE HCL 50 MG TAB PO SCH (09:23)
[2017-12-20] MEDS: ENOXAPARIN 30 MG/0.3 ML SYR SC SCH ×2 (09:24→21:12)
[2017-12-20] MEDS: POTASSIUM CHL 20 MEQ TABCR PO SCH (09:24)
--- NOTE | 2017-12-20 10:56 | Hospitalist Progress Note ---
Subjective Progress Notes Subjective This patient was admitted for a hemothorax. He had no acute issues overnight. Patient Complains of: Cardiovascular: No: Chest Pain Respiratory: No: Shortness of Breath Physical Exam Vital Signs Date Time Temp Pulse Resp B/P (MAP) Pulse Ox O2 Delivery O2 Flow Rate FiO2 12/20/17 09:00 93 High-Flow Nasal Cannula 12.0 12/20/17 07:44 65.0 12/20/17 06:00 69 26 162/100 (120) 12/19/17 23:59 98.2 Intake and Output 12/21/17 07:00 Intake Total 200 ml Output Total 150 ml Balance 50 ml Intake Oral 200 ml Output Urine Total 150 ml # Bowel Movements 1 Neuro: No Gross deficits Eyes: PERRLA Cardiovascular: Regular Rate and Rhythm Respiratory: Clear to Auscultation Extremities: No Edema Integumentary: No Cyanosis Result Diagram: 12/20/1760112/20/17601 Monitor Interpretation: Normal Sinus Rhythm Assessment and Plan Problems: (1) Confusion Status: Acute Assessment & Plan: He has improved since weaning off the sedative medications. (2) Acute respiratory failure with hypoxia Assessment & Plan: He was intubated on 12/11. Extubated 12/17. He remains dependent on Vapotherm, but is stable for transfer to the medical floor. (3) Pneumothorax Status: Resolved Assessment & Plan: Resolved. His chest tubes have been removed. (4) Aspiration pneumonia Assessment & Plan: He did have an aspiration event and developed bilateral infiltrates. His sputum culture was positive for group B Streptococcus. He has completed a course of Unasyn. (5) Alcohol dependence Assessment & Plan: He did require treatment for withdrawal after coming off the ventilator. He is receiving thiamine supplementation. (6) NICOTINE DEPENDENCE, CIGARETTES, UNCOMPLICATED Assessment & Plan: 2ppd smoker per . (7) Closed right clavicular fracture Status: Acute Assessment & Plan: Per surgery, immobilize in sling, morphine for pain. (8) Right rib fracture Assessment & Plan: Per surgery. (9) C. difficile diarrhea Assessment & Plan: He is now on oral vancomycin. Central Venous Access Medical Necessity for Access: Hemodynamic Monitoring (Left Femoral Shayla in place as well; Monitoring RIJ CVP), IV Access, Medication Administration Exam Sepsis Risk: No Definite Risk Problem Qualifiers (1) Pneumothorax: Pneumothorax type: chronic pneumothorax Qualified Codes: J93.81 - Chronic pneumothorax (2) Closed right clavicular fracture: Encounter type: initial encounter Clavicle location: unspecified part of clavicle Fracture alignment: displaced Qualified Codes: S42.001A - Fracture of unspecified part of right clavicle, initial encounter for closed fracture BARBRA ANGEL DO Dec 20, 2017 10:56
[2017-12-20] MEDS: VANCOMYCIN HCL 125 MG CAPSULE PO SCH ×3 (13:39→21:11)
[2017-12-20] MEDS: MELATONIN 3 MG TAB PO SCH (21:11)
[2017-12-21] MEDS: fentaNYL CITR 100 MCG/2 ML AMP IVP PRN ×5 (00:34→13:10)
[2017-12-21 02:38] VITALS: BP 131/86
[2017-12-21 05:46] LABS: PLATELET COUNT, AUTOMATED 753 K/uL (150-450)
--- NOTE | 2017-12-21 07:06 | General Surgery Progress Note ---
Subjective Progress Notes Subjective No complaints this morning. Had a solid BM, no diarrhea overnight. Physical Exam Vital Signs Date Time Temp Pulse Resp B/P (MAP) Pulse Ox O2 Delivery O2 Flow Rate FiO2 12/21/17 02:38 97.8 67 20 131/86 (101) 94 High-Flow Nasal Cannula 13.0 12/20/17 07:44 65.0 General Appearance: Alert, Awake, No Acute Distress, Afebrile Neuro: No Gross deficits Eyes: PERRLA GI: Soft and Non-Tender Extremities: Warm, Perfused Result Diagram: 12/21/1751912/21/17519 Monitor Interpretation: Normal Sinus Rhythm Assessment and Plan Problems: (1) Acute on chronic respiratory failure with hypoxia Status: Acute Assessment & Plan: 12/11/17: Transfer to ICU, intensify pulmonary toilet, High flow nasal cannula, continue Albuterol q 4 h, if no improvement then intubation , and mechanical ventilation. 12/12/17: Pt developed respiratory failure yesterday. Transferred to ICU and intubated yesterday, place a right chest tube, central line, and completed bronchoscopy. Started primaxin for PNA. Now stable. CXR this morning with right pneumothorax even with chest tube seemingly in good position and draining serous fluid. Not tidaling with vent and no obvious air leak on pleurovac. Turned up suction and will check CXR in 4 hours. If still with PTX, will place another chest tube anteriorly to evacuate pneumothorax. Started trophic TF via NG tube, gastric residuals are minimal. Will increase TF slowly to goal rate of 70ml/hr. Start bowel regimen today. Will stop sedation and wean vent as he tolerates. [facility] protocol for EtOH abuse. Banana bag for 3 days. Will discuss smoking cessation before going home. 12/13/17: Pt developed tension PTX yesterday in spite of chest tube present and a second chest tube was placed anteriorly. He has also developed ARDS. He is on a lower tidal volume with faster respiratory rate to avoid lung injury to non -compliant pulmonary segments. He is stable at the moment. CXR this morning c/ w worsening ARDS but no PTX and chest tubes, ETT, central line are in good position. Will place chest tubes to water seal today and check CXR on water seal. Will resume trophic TF via NG tube and follow gastric residuals. If tolerates this today with minimal gastric residuals then will increase feedings later today. Continue bowel regimen. Will conduct daily sedation vacations and work him out on the vent to prevent respiratory muscle atrophy. Continue aggressive pulmonary hygiene, lovenox, PPI. Will have a low threshold to transfer to [facility] for multidisciplinary vent management if we start to see signs of ventilatory trouble, decreasing compliance, problems oxygenating him, etc. I discussed this with his family who is ever-present at his bedside and they seem agreeable with this plan for now but they too would like to have a low threshold to transfer him. 12/14/17: He has done well overnight. Oxygenating well with good lung compliance. Will continue to wean vent slowly as patient tolerates along with daily sedation holidays. Will work on increasing TF to goal of 70cc/hour if he tolerates this. If not, may need to consider TPN. Replace potassium. Continue aggressive pulmonary hygiene, Lovenox, PPI. 12/15/17: ARDS criteria met; Severe; PF ratio today 112; Plateau Pressure 23, Compliance 33; CXR unchanged; Undergoing Lasix diuresis. Remains on lung protective ventilation strategy with 500 cc tidal volume (6.4 cc/kg TV with [place] Body weight by 6 foot height of 77.6 kg). Peep 6, FiO2 50%. Moderate secretions; HOB elevated. 12/16/17: per Dr. Wren's note 12/17/17: Doing better. Now on CPAP PEEP5 PS15 fiO2 40% with SaO2 mid 90s. Will wean PS this morning. If he does well on this then will plan on extubation today. Will leave remaining chest tube in place until after extubation and will plan on removing in the next couple of days if he does well. Continue aggressive pulmonary hygiene. Will hold on TF this morning and will place NG to wall suction to empty stomach in case he extubates today. Continue lasix diuresis. PPI, lovenox. 12/18/17: Doing much better. Extubated yesterday, so far doing well. Has period of agitation and required some ativan overnight due to period of beligerance while cleaning up a BM. Chest tube removed today. CXR later this morning. Will remove coyle and a-line. Start aggressive mobilization, PT/OT, pulmonary hygiene. Start clear diet. PPI, lovenox. Continue ICU care today. If he remains stable over the next 24 hours then will consider transferring him to [facility] tomorrow. 12/19/17: Continued improvement. Still having periods of confusion but slowly clearing. Will get head CT today. Will try to wean down narcotics and benzos. CXR improving. Oxygenating well on vapotherm canula. Increase mobilization, PT/OT. Continue aggressive pulmonary hygiene, IS. Will start regular diet. Continue lovenox and PPI, will start PO meds. May consider transfer to Med/ Surg later today if he continues to improve. 12/20/17: Continued improvement. Developed C.diff diarrhea so unasyn stopped and PO vanco started. Mentally cleared and close to baseline so head CT canceled. Continue to work with PT/OT and strength and mobility. Continue to wean down O2. Continue aggressive pulmonary hygiene, IS. Tolerating regular diet. Continue lovenox and PPI. Replace potassium. Will start daily oral potassium replacement since he's been requiring it daily and will follow serum potassium. Transfer to Med/Surg today. 12/21/17: Making good progress. Diarrhea seems improved/resolved. Continue PO vanco for 7 days. Continue PT/OT. Continue to wean down O2. Continue aggressive pulmonary hygiene, IS, ambulation, lovenox, PPI. Potassium is much better, now on PO replacement, will need to follow this to avoid hyperkalemia, especially now that diarrhea seems to have resolved, will check in am. 2 main issues preventing discharge are weakness and his O2 requirements. Will continue to work on strength and ambulation and will continue to wean O2 as he requires. (2) Multiple fractures of ribs, right side, initial encounter for closed fracture Status: Acute Assessment & Plan: . 12/09/17: Pain control good with epidural, voiding okay. Continue IS and Vigorous pulmonary toilet. 12/10/17: Having increased chest wall pain this am. Anesthesia will re bolus epidural. Once pain under better control, will need vigorous pulmonary toilet. 12/11/17: Added Gabapentin, IV Tylenol and increased dose of oxycodone for pain control. Despite this he is developing progressive RLL atelectasis and now hypoxemia with increasing O2 requirement. Bilateral patchy infiltrates noted. Afebrile with normal WBC. Will transfer to ICU with high flow NC. Bolus epidural, Intensify pulmonary toilet. Good chance he will require intubation, mechanical ventilation, and even bronchoscopy. 12/15/17: Multiple lateral right-sided rib fractures from the 4-8 ribs as well as posterior fractures of the 7-9 ribs near their vertebral articulations. Pain management with Fentanyl. CT x [address] on the right (3) Pneumothorax Status: Resolved Assessment & Plan: 12/15/17: Right CT x [address] Tension pneumothorax treated on 13 December with a second chest tube. CXR appears that pneumo is resolved (4) Hemothorax, right Status: Resolved Assessment & Plan: 12/09/17: Small hemothorax noted on CT not appreciated on this am CXR, Will recheck CXR in am, H&H stable. 12/10/17: CXR with increase in effusion. Hct down but likely related to IV hydration. Will get repeat CT chest today. Will place chest tube if this fluid appears as blood. Repeat CBC in am. 12/10/17: Chest CT reviewed, will continue to hold off on chest drain, though if increase further than will need pig tail or chest tube. Recheck CXR in am. Radiologist reports 1. Multiple patchy areas of consolidation with an upper lung zone predominance, new from 12/08/2017 most consistent with evolving lung contusions. Multifocal pneumonia is also possible. 2. A small right pleural effusion is larger. A trace left pleural effusion is new. Neither appears hemorrhagic. 3. Previously described fractures including multiple right rib fractures on the right clavicular shaft fracture are stable. 4. Mild coronary artery calcifications. 12/11/17: No significant increase in effusion, if he requires intubation then will place pleural drain. Hct stable 12/15/17: CT x [address], serous only drainage; Inferior chest tube with 160 cc out/ too much to remove today (5) Closed right clavicular fracture Status: Acute Assessment & Plan: 12/09/17: continue to use sling as we mobilize, ice pack, continue Percocet for pain control. 12/10/17: continue with same plan. 12/11/17: less edema, continue ice and sling. 12/15/17: Continues in sling for Right Clavicular fracture; No skin compromise or tenting (6) Abrasions of multiple sites Status: Acute Assessment & Plan: 12/09/17: Received tetanus booster in the past year, Bacitracin to wounds (7) ARDS (adult respiratory distress syndrome) Status: Acute Assessment & Plan: 12/15/17: ARDS criteria met; Severe; PF ratio today 112; Plateau Pressure 23, Compliance 33; CXR unchanged; Undergoing Lasix diuresis. Remains on lung protective ventilation strategy with 500 cc tidal volume (6.4 cc /kg TV with [place] Body weight by 6 foot height of 77.6 kg). Peep 6, FiO2 50%. Moderate secretions; HOB elevated. (8) Depression Status: Chronic Assessment & Plan: Continue home Zoloft. (9) Tension pneumothorax Status: Resolved Assessment & Plan: 12/15/17: CT x 2 on the right; no air leak. CXR stable (10) Volume overload Status: Resolved Assessment & Plan: 12/15/17: Daily weights have gone from 158 admission to 171.8 today with daily ++ balance. BUN/CR are both trending down and are low normals; CVP has trended up from 6 to 8.; CXR appears wet; Given lasix last PM with 2000 cc response. Will give 40 Lasix again this AM (11) At high risk for deep venous thrombosis Status: Acute Assessment & Plan: 12/15/17: High risk for DVT: on Lovenox 30 BID and SCDs; Consider screening duplex on ICU day 5 for high risk population (12) Hypokalemia Status: Resolved Assessment & Plan: 12/15/17: K level 3.2--- replaced with 80 meq potassium; will repeat K level in PM today (13) C. difficile diarrhea Status: Acute Assessment & Plan: Start PO vanco, stop other abx. Central Venous Access Medical Necessity for Access: Hemodynamic Monitoring (Left Femoral Shayla in place as well; Monitoring RIJ CVP), IV Access, Medication Administration Condition Stable. Time Spent: < 30 min Exam Sepsis Risk: Sepsis Risk Problem Qualifiers (1) Pneumothorax: Pneumothorax type: chronic pneumothorax Qualified Codes: J93.81 - Chronic pneumothorax (2) Closed right clavicular fracture: Encounter type: initial encounter Clavicle location: unspecified part of clavicle Fracture alignment: displaced Qualified Codes: S42.001A - Fracture of unspecified part of right clavicle, initial encounter for closed fracture (3) Depression: Depression Type: unspecified Qualified Codes: F32.9 - Major depressive disorder, single episode, unspecified (4) Volume overload: Hypervolemia type: other Qualified Codes: E87.79 - Other fluid overload BARBRA CHATTERJEE MD Dec 21, 2017 07:06
[2017-12-21 07:14] VITALS: BP 149/96
[2017-12-21] MEDS: PANTOPRAZOLE SOD 40 MG TABEC PO SCH (09:10)
[2017-12-21] MEDS: VANCOMYCIN HCL 125 MG CAPSULE PO SCH ×4 (09:10→21:05)
[2017-12-21] MEDS: SERTRALINE HCL 50 MG TAB PO SCH (09:10)
[2017-12-21] MEDS: THIAMINE HCL 100 MG TAB PO SCH (09:10)
[2017-12-21] MEDS: POTASSIUM CHL 20 MEQ TABCR PO SCH (09:10)
[2017-12-21] MEDS: ENOXAPARIN 30 MG/0.3 ML SYR SC SCH ×2 (09:11→21:06)
[2017-12-21] MEDS: oxyCODONE HCL 5 MG CAP PO PRN ×2 (10:40→17:23)
[2017-12-21] MEDS: IBUPROFEN 200 MG TAB PO PRN ×2 (10:40→17:23)
[2017-12-21 10:44] VITALS: BP 151/91
--- NOTE | 2017-12-21 11:17 | Hospitalist Progress Note ---
Subjective Progress Notes Subjective He is still taking shallow breaths secondary to pain. He did have some visual hallucinations last night. He is wondering about going up on Zoloft while he is recovering from this big event. Staff reports that he has denies SI. Physical Exam Vital Signs Date Time Temp Pulse Resp B/P (MAP) Pulse Ox O2 Delivery O2 Flow Rate FiO2 12/21/17 10:44 97.9 68 22 151/91 (111) 95 High-Flow Nasal Cannula 14.0 12/20/17 07:44 65.0 General Appearance: Alert, Awake, Other (Taking shallow breaths) Respiratory: Clear to Auscultation Result Diagram: 12/21/17 0520 12/21/17 0520 Monitor Interpretation: Normal Sinus Rhythm Assessment and Plan Problems: (1) Confusion Status: Acute Assessment & Plan: Likely, secondary to prolonged sedation for intubation, and illness. Improving. Trying scheduled melatonin and prn Seroquel for agitation. Adding Trazodone for sleep/depression, see below (2) Acute respiratory failure with hypoxia Assessment & Plan: He was intubated on 12/11. Extubated 12/17. He still has a high O2 requirement secondary to rib pain causing shallow breaths. (3) C. difficile diarrhea Assessment & Plan: He is now on oral vancomycin. Decreasing frequency of BM. (4) Pneumothorax Status: Resolved Assessment & Plan: Resolved. His chest tubes have been removed. (5) Aspiration pneumonia Assessment & Plan: He did have an aspiration event and developed bilateral infiltrates. His sputum culture was positive for group B Streptococcus. He has completed a course of Unasyn. (6) Alcohol dependence Assessment & Plan: He is through the withdrawal. He is receiving thiamine supplementation. (7) NICOTINE DEPENDENCE, CIGARETTES, UNCOMPLICATED Assessment & Plan: 2ppd smoker per . (8) Closed right clavicular fracture Status: Acute Assessment & Plan: Per surgery, immobilize in sling. (9) Right rib fracture Assessment & Plan: Per surgery. (10) Depression Status: Chronic Assessment & Plan: Continue home Zoloft. Dr. Mitchell recommended adding Trazodone to help with sleep and augment affects of Zoloft. Central Venous Access Medical Necessity for Access: Hemodynamic Monitoring (Left Femoral Shayla in place as well; Monitoring RIJ CVP), IV Access, Medication Administration Exam Sepsis Risk: Sepsis Risk Problem Qualifiers (1) Pneumothorax: Pneumothorax type: chronic pneumothorax Qualified Codes: J93.81 - Chronic pneumothorax (2) Closed right clavicular fracture: Encounter type: initial encounter Clavicle location: unspecified part of clavicle Fracture alignment: displaced Qualified Codes: S42.001A - Fracture of unspecified part of right clavicle, initial encounter for closed fracture (3) Depression: Depression Type: unspecified Qualified Codes: F32.9 - Major depressive disorder, single episode, unspecified MARINA MAIER MD Dec 21, 2017 11:16
[2017-12-21] MEDS: ACETAMINOPHEN 325 MG TAB PO PRN ×2 (13:29→21:06)
--- NOTE | 2017-12-21 14:40 | Medical Nutrition Therapy ---
Nutrition Anthropometrics Height (Inches): 72.00 Height (Calculated Centimeters: 182.767878 Weight (Pounds): 164 Weight (Calculated Kilograms): 76.714 BMI: 22 Timmy Nutrition Score: Probably Inadequate Timmy Nutrition Risk Score: 15 Dietary Referral Nutrition Risk Factors: Nutrition Risk Comment: Nutritional Diagnosis Nutritional Risk Acuity 2: Pr Appetite > 3d Past Medical History: Depression Nutritional Acuity: 2-Moderate Nutrition Diagnosis: Increased Nutrient Needs Nutrition Etiology: Physiological Causes Nutrition Problem/Etiology/Sym: AEB rib fx Energy Requirement: 2300 ([place] X 1.25 AF) Protein Requirement: 73 (1gm/kg) Fluid Requirement: 2200 (30 ml/kg) Diet Type: Diet as Tolerated PARESH/REG Nutrition Intervention: Cont diet as ordered, Encourage intake Additional Diet Restrictions: OFFER CLEAR LIQUID NUTR SUPPLMENT, OTHER NUTR SUPPLMENTS WHEN DIET ADVANCES Diet Comment To RSA: DO NOT GO IN ROOM UNLESS NURSE SAYS IT IS OK Nutrition Monitoring & Eval RD Patient Assessment Time: [address] Assessment Type: RD Re-Assessment Patient Nutrition Acuity: 2-Moderate Follow Up Date: Dec 25, 2017 Nutritional Comment: 12/09 Pt admitted after fall from horse for Abrasions, Hemothorax, Multiple fractures of ribs, and clavicular fracture. Lactate 2.5, Alb 4.5. Within normal wt range with BMI of 22.0. Receiving PARESH and consuming 100% of meals. Follow intake, labs, etc. DRT 12/11 Pt moved to ICU r/t respirtory failure. Pt is currently on mech vent and recieving propofol at 22.1mls/hr. Pt is on TF of jevity at 10ml/hr provideing 255 kcal with additional 583 kcal from Propofol. Current TF order is meeting 25% est kcal and 7% est protein needs. If pt is to remain on mech vent, recommend a final rate of 70 ml/hr which meets 100% est protein needs and 103% est karen needs with the current rate of propofol. 12/12 TF increasing to final rate of 70ml/hr. Currently recieving 20ml/hr and tolerating it well with minimal residuals. Propofol has decreased to 13.2. Final TF will meet 103% est protein needs and 93% est kcal needs with propofol at 13.2. Will cont to monitor. 12/13 TF has been decreased to 10ml/hr. Pt cont mech vent and on propofol. Pt has new dx of ARDS. TF + propofol is meeting 42% of kccal and 7% of protein needs. Recommend slowly increased back to final rate of 70 to meet nutr needs when pt is able. Cont to monitor. BK 12/14 Low H/H, Alb 2.5, Ca+ 7.1, Na+ 135, K+ 3.0, Low BUN/Creat. Jevity TF at 10mL/hr with minimal residuals. Pt also receiving varying amounts of propofol for sedation which contributes 1.1 kcals/mL as fat. MD notes indicate plan to to slowly increase TF to goal of 70cc/hour if pt tolerates and may consider TPN if pt not able to tolerate TF. Monitor TF tolerance, labs, etc. -DRT 12/15 Glu 125, Ca+ 8.1. TF now at 70mL/hr with pt tolerating. Residuals on 12/15 have been 35 - 160mL. TF providing 1781 kcals, 74 grams protein, and 1403 free water. Also continues to receive propofol for sedation. TF meeting 77% of kcal needs and 101% of protein needs. Follow TF tolerance, labs, etc. -DRT 12/17. Pt excubated and diet continues NPO. Pt on NG suction. Increase intake as tolerated. Pt is no longer receiving Propofol. Random glucose slightly elevated, 147, but no other significant lab concerns. MR 8/ Diet advanced to clears. Pt is combative and nurse is providing the clear liquid diet. Alb cont low but trending upwards at 2.6. Wt is back down to his admitting wt following a 10# wt gain. Will cont to monitor. BK 12/19. Diet changed to PARESH, currently no meals to report. Pt does not report any pain. Seemed confused according to nurse. No significant lab concerns. Pt BMI is in normal range, 22.3. Cont to monitor intake, encourage intake, and will monitor labs. MR /. Pt cont on PARESH and refused breakfast this morning, lunch tray was late. Pt intake low over previous few days. Will offer nutr suppl. Pts diarrhea is improving but pt is experiencing shallow breaths with pain. WBC is elevated, 15.3, and RBC is low, 2.89. Working on weaning off O2 in order to be discharged. Cont to encourage intake and monitor labs. MODESTO CARRINGTON Dec 21, 2017 14:17
[2017-12-21 15:52] VITALS: BP 134/81
[2017-12-21 19:45] VITALS: BP 145/90
[2017-12-21] MEDS: traZODone HCL 50 MG TAB PO SCH (21:05)
[2017-12-21] MEDS: MELATONIN 3 MG TAB PO SCH (21:05)
[2017-12-21 23:53] VITALS: BP 138/84
[2017-12-22] MEDS: oxyCODONE HCL 5 MG CAP PO PRN ×4 (00:06→18:11)
[2017-12-22] MEDS: IBUPROFEN 200 MG TAB PO PRN ×4 (00:06→18:10)
[2017-12-22] MEDS: fentaNYL CITR 100 MCG/2 ML AMP IVP PRN ×3 (01:10→15:31)
[2017-12-22 03:56] VITALS: BP 135/73
[2017-12-22] MEDS: ACETAMINOPHEN 325 MG TAB PO PRN ×3 (04:50→20:54)
--- NOTE | 2017-12-22 05:57 | RADIOLOGY IMAGING REPORT ---
FACILITY: [facility] - [place] PATIENT NAME: Helena Nuñez : 1960 MR: [id number] V: [id number] EXAM DATE: ORDERING PHYSICIAN: BARBRA CHATTERJEE TECHNOLOGIST: Location: [facility] [place] Patient: Helena Nuñez : 1960 Visit/Account:[id number] Date of Sevice: 12/22/2017 PORTABLE CHEST: Indication: ARDS. Technique: A single frontal film was obtained. Comparison: 12/19/2017 Skeletal and soft tissue structures: Unchanged. Heart and mediastinum: Stable. Lung cain: The bilateral diffuse opacities appear unchanged. No new focal abnormalities are identif ied. Pleural spaces: No evidence of pneumothorax or significant effusion. Impression: No acute interval change. Report Dictated By: Sterling Erickson MD at 12/22/2017 5:51 AM Report E-Signed By: Sterling Erickson MD at 12/22/2017 5:53 AM WSN:[id number]
[2017-12-22 06:15] LABS: PLATELET COUNT, AUTOMATED 923 K/uL (150-450)
[2017-12-22 08:07] VITALS: BP 132/79
--- NOTE | 2017-12-22 08:10 | General Surgery Progress Note ---
Subjective Progress Notes Subjective Feeling good this morning. No specific complaints. Physical Exam Vital Signs Date Time Temp Pulse Resp B/P (MAP) Pulse Ox O2 Delivery O2 Flow Rate FiO2 12/22/17 06:20 97 High-Flow Nasal Cannula 5.0 12/22/17 03:56 98.9 75 12 135/73 (93) 12/20/17 07:44 65.0 General Appearance: Alert, Awake, No Acute Distress, Afebrile Neck: Other (Central line removed yesterday, dressing removed this morning. Site looks good, no erythema or drainage.) Cardiovascular: Regular Rate and Rhythm Respiratory: Other (Coarse BS bilaterally) Chest: Other (Dressings removed, chest tube incisions all look good without erythema or drainage.) GI: Soft and Non-Tender Extremities: Warm, Perfused Result Diagram: 12/22/17 0556 12/22/17 0556 Monitor Interpretation: Normal Sinus Rhythm Assessment and Plan Problems: (1) Acute on chronic respiratory failure with hypoxia Status: Acute Assessment & Plan: 12/11/17: Transfer to ICU, intensify pulmonary toilet, High flow nasal cannula, continue Albuterol q 4 h, if no improvement then intubation , and mechanical ventilation. 12/12/17: Pt developed respiratory failure yesterday. Transferred to ICU and intubated yesterday, place a right chest tube, central line, and completed bronchoscopy. Started primaxin for PNA. Now stable. CXR this morning with right pneumothorax even with chest tube seemingly in good position and draining serous fluid. Not tidaling with vent and no obvious air leak on pleurovac. Turned up suction and will check CXR in 4 hours. If still with PTX, will place another chest tube anteriorly to evacuate pneumothorax. Started trophic TF via NG tube, gastric residuals are minimal. Will increase TF slowly to goal rate of 70ml/hr. Start bowel regimen today. Will stop sedation and wean vent as he tolerates. [facility] protocol for EtOH abuse. Banana bag for 3 days. Will discuss smoking cessation before going home. 12/13/17: Pt developed tension PTX yesterday in spite of chest tube present and a second chest tube was placed anteriorly. He has also developed ARDS. He is on a lower tidal volume with faster respiratory rate to avoid lung injury to non -compliant pulmonary segments. He is stable at the moment. CXR this morning c/ w worsening ARDS but no PTX and chest tubes, ETT, central line are in good position. Will place chest tubes to water seal today and check CXR on water seal. Will resume trophic TF via NG tube and follow gastric residuals. If tolerates this today with minimal gastric residuals then will increase feedings later today. Continue bowel regimen. Will conduct daily sedation vacations and work him out on the vent to prevent respiratory muscle atrophy. Continue aggressive pulmonary hygiene, lovenox, PPI. Will have a low threshold to transfer to [facility] for multidisciplinary vent management if we start to see signs of ventilatory trouble, decreasing compliance, problems oxygenating him, etc. I discussed this with his family who is ever-present at his bedside and they seem agreeable with this plan for now but they too would like to have a low threshold to transfer him. 12/14/17: He has done well overnight. Oxygenating well with good lung compliance. Will continue to wean vent slowly as patient tolerates along with daily sedation holidays. Will work on increasing TF to goal of 70cc/hour if he tolerates this. If not, may need to consider TPN. Replace potassium. Continue aggressive pulmonary hygiene, Lovenox, PPI. 12/15/17: ARDS criteria met; Severe; PF ratio today 112; Plateau Pressure 23, Compliance 33; CXR unchanged; Undergoing Lasix diuresis. Remains on lung protective ventilation strategy with 500 cc tidal volume (6.4 cc/kg TV with Mclean Body weight by 6 foot height of 77.6 kg). Peep 6, FiO2 50%. Moderate secretions; HOB elevated. 12/16/17: per Dr. Wren's note 12/17/17: Doing better. Now on CPAP PEEP5 PS15 fiO2 40% with SaO2 mid 90s. Will wean PS this morning. If he does well on this then will plan on extubation today. Will leave remaining chest tube in place until after extubation and will plan on removing in the next couple of days if he does well. Continue aggressive pulmonary hygiene. Will hold on TF this morning and will place NG to wall suction to empty stomach in case he extubates today. Continue lasix diuresis. PPI, lovenox. 12/18/17: Doing much better. Extubated yesterday, so far doing well. Has period of agitation and required some ativan overnight due to period of beligerance while cleaning up a BM. Chest tube removed today. CXR later this morning. Will remove coyle and a-line. Start aggressive mobilization, PT/OT, pulmonary hygiene. Start clear diet. PPI, lovenox. Continue ICU care today. If he remains stable over the next 24 hours then will consider transferring him to [facility] tomorrow. 12/19/17: Continued improvement. Still having periods of confusion but slowly clearing. Will get head CT today. Will try to wean down narcotics and benzos. CXR improving. Oxygenating well on vapotherm canula. Increase mobilization, PT/OT. Continue aggressive pulmonary hygiene, IS. Will start regular diet. Continue lovenox and PPI, will start PO meds. May consider transfer to Med/ Surg later today if he continues to improve. 12/20/17: Continued improvement. Developed C.diff diarrhea so unasyn stopped and PO vanco started. Mentally cleared and close to baseline so head CT canceled. Continue to work with PT/OT and strength and mobility. Continue to wean down O2. Continue aggressive pulmonary hygiene, IS. Tolerating regular diet. Continue lovenox and PPI. Replace potassium. Will start daily oral potassium replacement since he's been requiring it daily and will follow serum potassium. Transfer to Med/Surg today. 12/21/17: Making good progress. Diarrhea seems improved/resolved. Continue PO vanco for 7 days. Continue PT/OT. Continue to wean down O2. Continue aggressive pulmonary hygiene, IS, ambulation, lovenox, PPI. Potassium is much better, now on PO replacement, will need to follow this to avoid hyperkalemia, especially now that diarrhea seems to have resolved, will check in am. 2 main issues preventing discharge are weakness and his O2 requirements. Will continue to work on strength and ambulation and will continue to wean O2 as he requires. 12/22/17: Doing well. Slowly coming down on O2. Increasing activity. No able to walk in the halls with a walker. Diarrhea has resolved, continue PO vanco for total of 7 days. Continue PT/OT, aggressive pulmonary hygiene, IS, ambulation, lovenox, PPI. Serum potassium is up to 4.2. Will stop PO replacement now that diarrhea has resolved and see if he's able to maintain a normal serum potassium level. (2) Multiple fractures of ribs, right side, initial encounter for closed fracture Status: Acute Assessment & Plan: . 12/09/17: Pain control good with epidural, voiding okay. Continue IS and Vigorous pulmonary toilet. 12/10/17: Having increased chest wall pain this am. Anesthesia will re bolus epidural. Once pain under better control, will need vigorous pulmonary toilet. 12/11/17: Added Gabapentin, IV Tylenol and increased dose of oxycodone for pain control. Despite this he is developing progressive RLL atelectasis and now hypoxemia with increasing O2 requirement. Bilateral patchy infiltrates noted. Afebrile with normal WBC. Will transfer to ICU with high flow NC. Bolus epidural, Intensify pulmonary toilet. Good chance he will require intubation, mechanical ventilation, and even bronchoscopy. 12/15/17: Multiple lateral right-sided rib fractures from the 4-8 ribs as well as posterior fractures of the 7-9 ribs near their vertebral articulations. Pain management with Fentanyl. CT x [address] on the right (3) Pneumothorax Status: Resolved Assessment & Plan: 12/15/17: Right CT x [address] Tension pneumothorax treated on 13 December with a second chest tube. CXR appears that pneumo is resolved (4) Hemothorax, right Status: Resolved Assessment & Plan: 12/09/17: Small hemothorax noted on CT not appreciated on this am CXR, Will recheck CXR in am, H&H stable. 12/10/17: CXR with increase in effusion. Hct down but likely related to IV hydration. Will get repeat CT chest today. Will place chest tube if this fluid appears as blood. Repeat CBC in am. 12/10/17: Chest CT reviewed, will continue to hold off on chest drain, though if increase further than will need pig tail or chest tube. Recheck CXR in am. Radiologist reports 1. Multiple patchy areas of consolidation with an upper lung zone predominance, new from 12/08/2017 most consistent with evolving lung contusions. Multifocal pneumonia is also possible. 2. A small right pleural effusion is larger. A trace left pleural effusion is new. Neither appears hemorrhagic. 3. Previously described fractures including multiple right rib fractures on the right clavicular shaft fracture are stable. 4. Mild coronary artery calcifications. 12/11/17: No significant increase in effusion, if he requires intubation then will place pleural drain. Hct stable 12/15/17: CT x [address], serous only drainage; Inferior chest tube with 160 cc out/ too much to remove today (5) Closed right clavicular fracture Status: Acute Assessment & Plan: 12/09/17: continue to use sling as we mobilize, ice pack, continue Percocet for pain control. 12/10/17: continue with same plan. 12/11/17: less edema, continue ice and sling. 12/15/17: Continues in sling for Right Clavicular fracture; No skin compromise or tenting (6) Abrasions of multiple sites Status: Acute Assessment & Plan: 12/09/17: Received tetanus booster in the past year, Bacitracin to wounds (7) ARDS (adult respiratory distress syndrome) Status: Acute Assessment & Plan: 12/15/17: ARDS criteria met; Severe; PF ratio today 112; Plateau Pressure 23, Compliance 33; CXR unchanged; Undergoing Lasix diuresis. Remains on lung protective ventilation strategy with 500 cc tidal volume (6.4 cc /kg TV with Mclean Body weight by 6 foot height of 77.6 kg). Peep 6, FiO2 50%. Moderate secretions; HOB elevated. (8) Depression Status: Chronic Assessment & Plan: Continue home Zoloft. (9) Tension pneumothorax Status: Resolved Assessment & Plan: 12/15/17: CT x 2 on the right; no air leak. CXR stable (10) Volume overload Status: Resolved Assessment & Plan: 12/15/17: Daily weights have gone from 158 admission to 171.8 today with daily ++ balance. BUN/CR are both trending down and are low normals; CVP has trended up from 6 to 8.; CXR appears wet; Given lasix last PM with 2000 cc response. Will give 40 Lasix again this AM (11) At high risk for deep venous thrombosis Status: Acute Assessment & Plan: 12/15/17: High risk for DVT: on Lovenox 30 BID and SCDs; Consider screening duplex on ICU day 5 for high risk population (12) Hypokalemia Status: Resolved Assessment & Plan: 12/15/17: K level 3.2--- replaced with 80 meq potassium; will repeat K level in PM today (13) C. difficile diarrhea Status: Acute Assessment & Plan: Start PO vanco, stop other abx. Central Venous Access Medical Necessity for Access: Hemodynamic Monitoring (Left Femoral [place] in place as well; Monitoring RIJ CVP), IV Access, Medication Administration Condition Stable. Time Spent: < 30 min Exam Sepsis Risk: No Definite Risk Problem Qualifiers (1) Pneumothorax: Pneumothorax type: chronic pneumothorax Qualified Codes: J93.81 - Chronic pneumothorax (2) Closed right clavicular fracture: Encounter type: initial encounter Clavicle location: unspecified part of clavicle Fracture alignment: displaced Qualified Codes: S42.001A - Fracture of unspecified part of right clavicle, initial encounter for closed fracture (3) Depression: Depression Type: unspecified Qualified Codes: F32.9 - Major depressive disorder, single episode, unspecified (4) Volume overload: Hypervolemia type: other Qualified Codes: E87.79 - Other fluid overload BARBRA CHATTERJEE MD Dec 22, 2017 08:10
[2017-12-22] MEDS: THIAMINE HCL 100 MG TAB PO SCH (08:39)
[2017-12-22] MEDS: VANCOMYCIN HCL 125 MG CAPSULE PO SCH ×4 (08:39→20:54)
[2017-12-22] MEDS: PANTOPRAZOLE SOD 40 MG TABEC PO SCH (08:40)
[2017-12-22] MEDS: SERTRALINE HCL 50 MG TAB PO SCH (08:40)
[2017-12-22] MEDS: ENOXAPARIN 30 MG/0.3 ML SYR SC SCH ×2 (08:41→20:54)
[2017-12-22 11:18] VITALS: BP 138/88
[2017-12-22 15:38] VITALS: BP 124/82
--- NOTE | 2017-12-22 18:00 | Hospitalist Progress Note ---
Subjective Progress Notes Subjective 57M admitted for trauma, progressed to ARDS. This am doing better, O2 weaned to 4L. Patient Complains of: Neurological: No: Syncope, Confusion, Weakness Cardiovascular: No: Chest Pain, Palpitations Respiratory: Cough, No: Congestion, Shortness of Breath Gastrointestinal: No Nausea, No Vomiting Genitourinary: No Dysuria, No Hematuria Musculoskeletal: Pain Physical Exam Vital Signs Date Time Temp Pulse Resp B/P (MAP) Pulse Ox O2 Delivery O2 Flow Rate FiO2 12/22/17 15:38 98.1 71 20 124/82 (96) 93 Nasal Cannula 4.0 12/20/17 07:44 65.0 Intake and Output 12/23/17 07:00 # Voids 2 # Bowel Movements 1 General Appearance: Alert, Awake, No Acute Distress Neuro: No Gross deficits Eyes: PERRLA ENT: Normal Neck: No Masses Cardiovascular: Normal Rhythm & Peripheral Pulses Respiratory: No Respiratory Distress (5L NC) Chest: No Masses : Normal Integumentary: Skin Intact without Lesion / Mass Psych: Alert & Oriented X3 Result Diagram: 12/22/17 0556 12/22/17 0556 Assessment and Plan Problems: (1) Confusion Status: Acute Assessment & Plan: Likely, secondary to prolonged sedation for intubation, and illness. Improving. Trying scheduled melatonin and prn Seroquel for agitation. Trazodone for sleep/depression, was mildly confused last night. Will dc if recurs. (2) Acute respiratory failure with hypoxia Assessment & Plan: He was intubated on 12/11. Extubated 12/17. He still has a high O2 requirement secondary to rib pain causing shallow breaths. (3) C. difficile diarrhea Assessment & Plan: He is now on oral vancomycin. Decreasing frequency of BM. Recommend total 10 days therapy (4) Pneumothorax Status: Resolved Assessment & Plan: Resolved. His chest tubes have been removed. (5) Aspiration pneumonia Assessment & Plan: He did have an aspiration event and developed bilateral infiltrates. His sputum culture was positive for group B Streptococcus. He has completed a course of Unasyn. (6) Alcohol dependence Assessment & Plan: He is through the withdrawal. He is receiving thiamine supplementation. (7) NICOTINE DEPENDENCE, CIGARETTES, UNCOMPLICATED Assessment & Plan: 2ppd smoker per . (8) Closed right clavicular fracture Status: Acute Assessment & Plan: Per surgery, immobilize in sling. (9) Right rib fracture Assessment & Plan: Per surgery. (10) Depression Status: Chronic Assessment & Plan: Continue home Zoloft. Dr. Mitchell recommended adding Trazodone to help with sleep and augment affects of Zoloft. Central Venous Access Medical Necessity for Access: Hemodynamic Monitoring (Left Femoral [place] in place as well; Monitoring RIJ CVP), IV Access, Medication Administration Exam Sepsis Risk: No Definite Risk Problem Qualifiers (1) Pneumothorax: Pneumothorax type: chronic pneumothorax Qualified Codes: J93.81 - Chronic pneumothorax (2) Closed right clavicular fracture: Encounter type: initial encounter Clavicle location: unspecified part of clavicle Fracture alignment: displaced Qualified Codes: S42.001A - Fracture of unspecified part of right clavicle, initial encounter for closed fracture (3) Depression: Depression Type: unspecified Qualified Codes: F32.9 - Major depressive disorder, single episode, unspecified TROY YAO DO Dec 22, 2017 18:00
[2017-12-22] MEDS ORDERED: ALPRAZolam 0.25 MG TAB PO PRN (18:05)
[2017-12-22] MEDS: MELATONIN 3 MG TAB PO SCH (20:53)
[2017-12-22] MEDS: traZODone HCL 50 MG TAB PO SCH (20:53)
[2017-12-22 21:29] VITALS: BP 124/82
[2017-12-23] MEDS: IBUPROFEN 200 MG TAB PO PRN ×3 (01:58→16:15)
[2017-12-23 02:02] VITALS: BP 130/79
[2017-12-23] MEDS: oxyCODONE HCL 5 MG CAP PO PRN ×4 (02:11→21:52)
[2017-12-23] MEDS: ACETAMINOPHEN 325 MG TAB PO PRN ×3 (04:28→19:40)
[2017-12-23 05:57] LABS: PLATELET COUNT, AUTOMATED 947 K/uL (150-450)
[2017-12-23 07:39] VITALS: BP_SYST 118; BP_DIAS 0; BP_DIAS 90
[2017-12-23] MEDS: VANCOMYCIN HCL 125 MG CAPSULE PO SCH ×4 (08:49→21:06)
[2017-12-23] MEDS: PANTOPRAZOLE SOD 40 MG TABEC PO SCH (08:49)
[2017-12-23] MEDS: THIAMINE HCL 100 MG TAB PO SCH (08:49)
[2017-12-23] MEDS: ENOXAPARIN 30 MG/0.3 ML SYR SC SCH ×2 (08:49→21:07)
[2017-12-23] MEDS: SERTRALINE HCL 50 MG TAB PO SCH (08:49)
--- NOTE | 2017-12-23 08:56 | General Surgery Progress Note ---
Subjective Progress Notes Subjective No complaints. Physical Exam Vital Signs Date Time Temp Pulse Resp B/P (MAP) Pulse Ox O2 Delivery O2 Flow Rate FiO2 12/23/17 07:50 98 Nasal Cannula 3.5 12/23/17 07:39 97.5 67 18 118/0 (39) 12/20/17 07:44 65.0 General Appearance: Alert, Awake, No Acute Distress, Afebrile Neuro: No Gross deficits Eyes: PERRLA Cardiovascular: Regular Rate and Rhythm Respiratory: Clear to Auscultation Chest: Other (Chest tube incisions look good.) GI: Soft and Non-Tender Extremities: Warm, Perfused Result Diagram: 12/23/1753012/23/17530 Assessment and Plan Problems: (1) Acute on chronic respiratory failure with hypoxia Status: Acute Assessment & Plan: 12/11/17: Transfer to ICU, intensify pulmonary toilet, High flow nasal cannula, continue Albuterol q 4 h, if no improvement then intubation , and mechanical ventilation. 12/12/17: Pt developed respiratory failure yesterday. Transferred to ICU and intubated yesterday, place a right chest tube, central line, and completed bronchoscopy. Started primaxin for PNA. Now stable. CXR this morning with right pneumothorax even with chest tube seemingly in good position and draining serous fluid. Not tidaling with vent and no obvious air leak on pleurovac. Turned up suction and will check CXR in 4 hours. If still with PTX, will place another chest tube anteriorly to evacuate pneumothorax. Started trophic TF via NG tube, gastric residuals are minimal. Will increase TF slowly to goal rate of 70ml/hr. Start bowel regimen today. Will stop sedation and wean vent as he tolerates. [facility] protocol for EtOH abuse. Banana bag for 3 days. Will discuss smoking cessation before going home. 12/13/17: Pt developed tension PTX yesterday in spite of chest tube present and a second chest tube was placed anteriorly. He has also developed ARDS. He is on a lower tidal volume with faster respiratory rate to avoid lung injury to non -compliant pulmonary segments. He is stable at the moment. CXR this morning c/ w worsening ARDS but no PTX and chest tubes, ETT, central line are in good position. Will place chest tubes to water seal today and check CXR on water seal. Will resume trophic TF via NG tube and follow gastric residuals. If tolerates this today with minimal gastric residuals then will increase feedings later today. Continue bowel regimen. Will conduct daily sedation vacations and work him out on the vent to prevent respiratory muscle atrophy. Continue aggressive pulmonary hygiene, lovenox, PPI. Will have a low threshold to transfer to [facility] for multidisciplinary vent management if we start to see signs of ventilatory trouble, decreasing compliance, problems oxygenating him, etc. I discussed this with his family who is ever-present at his bedside and they seem agreeable with this plan for now but they too would like to have a low threshold to transfer him. 12/14/17: He has done well overnight. Oxygenating well with good lung compliance. Will continue to wean vent slowly as patient tolerates along with daily sedation holidays. Will work on increasing TF to goal of 70cc/hour if he tolerates this. If not, may need to consider TPN. Replace potassium. Continue aggressive pulmonary hygiene, Lovenox, PPI. 12/15/17: ARDS criteria met; Severe; PF ratio today 112; Plateau Pressure 23, Compliance 33; CXR unchanged; Undergoing Lasix diuresis. Remains on lung protective ventilation strategy with 500 cc tidal volume (6.4 cc/kg TV with [place] Body weight by 6 foot height of 77.6 kg). Peep 6, FiO2 50%. Moderate secretions; HOB elevated. 12/16/17: per Dr. Wren's note 12/17/17: Doing better. Now on CPAP PEEP5 PS15 fiO2 40% with SaO2 mid 90s. Will wean PS this morning. If he does well on this then will plan on extubation today. Will leave remaining chest tube in place until after extubation and will plan on removing in the next couple of days if he does well. Continue aggressive pulmonary hygiene. Will hold on TF this morning and will place NG to wall suction to empty stomach in case he extubates today. Continue lasix diuresis. PPI, lovenox. 12/18/17: Doing much better. Extubated yesterday, so far doing well. Has period of agitation and required some ativan overnight due to period of beligerance while cleaning up a BM. Chest tube removed today. CXR later this morning. Will remove coyle and a-line. Start aggressive mobilization, PT/OT, pulmonary hygiene. Start clear diet. PPI, lovenox. Continue ICU care today. If he remains stable over the next 24 hours then will consider transferring him to [facility] tomorrow. 12/19/17: Continued improvement. Still having periods of confusion but slowly clearing. Will get head CT today. Will try to wean down narcotics and benzos. CXR improving. Oxygenating well on vapotherm canula. Increase mobilization, PT/OT. Continue aggressive pulmonary hygiene, IS. Will start regular diet. Continue lovenox and PPI, will start PO meds. May consider transfer to Med/ Surg later today if he continues to improve. 12/20/17: Continued improvement. Developed C.diff diarrhea so unasyn stopped and PO vanco started. Mentally cleared and close to baseline so head CT canceled. Continue to work with PT/OT and strength and mobility. Continue to wean down O2. Continue aggressive pulmonary hygiene, IS. Tolerating regular diet. Continue lovenox and PPI. Replace potassium. Will start daily oral potassium replacement since he's been requiring it daily and will follow serum potassium. Transfer to Med/Surg today. 12/21/17: Making good progress. Diarrhea seems improved/resolved. Continue PO vanco for 7 days. Continue PT/OT. Continue to wean down O2. Continue aggressive pulmonary hygiene, IS, ambulation, lovenox, PPI. Potassium is much better, now on PO replacement, will need to follow this to avoid hyperkalemia, especially now that diarrhea seems to have resolved, will check in am. 2 main issues preventing discharge are weakness and his O2 requirements. Will continue to work on strength and ambulation and will continue to wean O2 as he requires. 12/22/17: Doing well. Slowly coming down on O2. Increasing activity. No able to walk in the halls with a walker. Diarrhea has resolved, continue PO vanco for total of 7 days. Continue PT/OT, aggressive pulmonary hygiene, IS, ambulation, lovenox, PPI. Serum potassium is up to 4.2. Will stop PO replacement now that diarrhea has resolved and see if he's able to maintain a normal serum potassium level. 12/23/17: Doing well. WBC normal this morning. Potassium is normal without replacement. Tolerating diet. Continuing to decrease supplemental O2, now down to 3 L/min. Diarrhea is gone. Continue PT/OT, will try stairs tomorrow. Will ask social work case manager to provide education to him regarding smoking and EtOH cessation programs/help in [place]. He can go home tomorrow after PT/OT and social work case manager sees him. (2) Multiple fractures of ribs, right side, initial encounter for closed fracture Status: Acute Assessment & Plan: . 12/09/17: Pain control good with epidural, voiding okay. Continue IS and Vigorous pulmonary toilet. 12/10/17: Having increased chest wall pain this am. Anesthesia will re bolus epidural. Once pain under better control, will need vigorous pulmonary toilet. 12/11/17: Added Gabapentin, IV Tylenol and increased dose of oxycodone for pain control. Despite this he is developing progressive RLL atelectasis and now hypoxemia with increasing O2 requirement. Bilateral patchy infiltrates noted. Afebrile with normal WBC. Will transfer to ICU with high flow NC. Bolus epidural, Intensify pulmonary toilet. Good chance he will require intubation, mechanical ventilation, and even bronchoscopy. 12/15/17: Multiple lateral right-sided rib fractures from the 4-8 ribs as well as posterior fractures of the 7-9 ribs near their vertebral articulations. Pain management with Fentanyl. CT x [address] on the right (3) Pneumothorax Status: Resolved Assessment & Plan: 12/15/17: Right CT x [address] Tension pneumothorax treated on 13 December with a second chest tube. CXR appears that pneumo is resolved (4) Hemothorax, right Status: Resolved Assessment & Plan: 12/09/17: Small hemothorax noted on CT not appreciated on this am CXR, Will recheck CXR in am, H&H stable. 12/10/17: CXR with increase in effusion. Hct down but likely related to IV hydration. Will get repeat CT chest today. Will place chest tube if this fluid appears as blood. Repeat CBC in am. 12/10/17: Chest CT reviewed, will continue to hold off on chest drain, though if increase further than will need pig tail or chest tube. Recheck CXR in am. Radiologist reports 1. Multiple patchy areas of consolidation with an upper lung zone predominance, new from 12/08/2017 most consistent with evolving lung contusions. Multifocal pneumonia is also possible. 2. A small right pleural effusion is larger. A trace left pleural effusion is new. Neither appears hemorrhagic. 3. Previously described fractures including multiple right rib fractures on the right clavicular shaft fracture are stable. 4. Mild coronary artery calcifications. 12/11/17: No significant increase in effusion, if he requires intubation then will place pleural drain. Hct stable 12/15/17: CT x [address], serous only drainage; Inferior chest tube with 160 cc out/ too much to remove today (5) Closed right clavicular fracture Status: Acute Assessment & Plan: 12/09/17: continue to use sling as we mobilize, ice pack, continue Percocet for pain control. 12/10/17: continue with same plan. 12/11/17: less edema, continue ice and sling. 12/15/17: Continues in sling for Right Clavicular fracture; No skin compromise or tenting (6) Abrasions of multiple sites Status: Resolved Assessment & Plan: 12/09/17: Received tetanus booster in the past year, Bacitracin to wounds (7) ARDS (adult respiratory distress syndrome) Status: Resolved Assessment & Plan: 12/15/17: ARDS criteria met; Severe; PF ratio today 112; Plateau Pressure 23, Compliance 33; CXR unchanged; Undergoing Lasix diuresis. Remains on lung protective ventilation strategy with 500 cc tidal volume (6.4 cc /kg TV with [place] Body weight by 6 foot height of 77.6 kg). Peep 6, FiO2 50%. Moderate secretions; HOB elevated. (8) Depression Status: Chronic Assessment & Plan: Continue home Zoloft. (9) Tension pneumothorax Status: Resolved Assessment & Plan: 12/15/17: CT x 2 on the right; no air leak. CXR stable (10) Volume overload Status: Resolved Assessment & Plan: 12/15/17: Daily weights have gone from 158 admission to 171.8 today with daily ++ balance. BUN/CR are both trending down and are low normals; CVP has trended up from 6 to 8.; CXR appears wet; Given lasix last PM with 2000 cc response. Will give 40 Lasix again this AM (11) At high risk for deep venous thrombosis Status: Acute Assessment & Plan: 12/15/17: High risk for DVT: on Lovenox 30 BID and SCDs; Consider screening duplex on ICU day 5 for high risk population (12) Hypokalemia Status: Resolved Assessment & Plan: 12/15/17: K level 3.2--- replaced with 80 meq potassium; will repeat K level in PM today (13) C. difficile diarrhea Status: Resolved Assessment & Plan: Start PO vanco, stop other abx. Central Venous Access Medical Necessity for Access: Hemodynamic Monitoring (Left Femoral Shayla in place as well; Monitoring RIJ CVP), IV Access, Medication Administration Condition Stable. Time Spent: < 30 min Exam Sepsis Risk: No Definite Risk Problem Qualifiers (1) Pneumothorax: Pneumothorax type: chronic pneumothorax Qualified Codes: J93.81 - Chronic pneumothorax (2) Closed right clavicular fracture: Encounter type: initial encounter Clavicle location: unspecified part of clavicle Fracture alignment: displaced Qualified Codes: S42.001A - Fracture of unspecified part of right clavicle, initial encounter for closed fracture (3) Depression: Depression Type: unspecified Qualified Codes: F32.9 - Major depressive disorder, single episode, unspecified (4) Volume overload: Hypervolemia type: other Qualified Codes: E87.79 - Other fluid overload BARBRA CHATTERJEE MD Dec 23, 2017 08:56
--- NOTE | 2017-12-23 10:25 | Hospitalist Progress Note ---
Subjective Progress Notes Subjective This patient was admitted for hemothorax. He had no acute changes overnight. Patient Complains of: Cardiovascular: No: Chest Pain Respiratory: No: Shortness of Breath Physical Exam Vital Signs Date Time Temp Pulse Resp B/P (MAP) Pulse Ox O2 Delivery O2 Flow Rate FiO2 12/23/17 07:50 98 Nasal Cannula 3.5 12/23/17 07:39 97.5 67 18 118/90 (99) 12/20/17 07:44 65.0 Intake and Output 12/24/17 06:59 Intake Total 240 ml Balance 240 ml Intake Oral 240 ml # Voids 1 Cardiovascular: Regular Rate and Rhythm Respiratory: Clear to Auscultation Result Diagram: 12/23/1753012/23/17 05 Assessment and Plan Problems: (1) Confusion Status: Acute Assessment & Plan: Likely, secondary to prolonged sedation for intubation, and illness. Improving. Trying scheduled melatonin and prn Seroquel for agitation. Trazodone for sleep/depression, was mildly confused last night. (2) Acute respiratory failure with hypoxia Assessment & Plan: He was intubated on 12/11. Extubated 12/17. He still has a high O2 requirement secondary to rib pain causing shallow breaths. (3) C. difficile diarrhea Assessment & Plan: He is now on oral vancomycin. Decreasing frequency of BM. Recommend total 10 days therapy (4) Pneumothorax Status: Resolved Assessment & Plan: Resolved. His chest tubes have been removed. (5) Aspiration pneumonia Assessment & Plan: He did have an aspiration event and developed bilateral infiltrates. His sputum culture was positive for group B Streptococcus. He has completed a course of Unasyn. (6) Alcohol dependence Assessment & Plan: He is through the withdrawal. He is receiving thiamine supplementation. (7) NICOTINE DEPENDENCE, CIGARETTES, UNCOMPLICATED Assessment & Plan: 2ppd smoker per . (8) Closed right clavicular fracture Status: Acute Assessment & Plan: Per surgery, immobilize in sling. (9) Right rib fracture Assessment & Plan: Per surgery. (10) Depression Status: Chronic Assessment & Plan: Continue home Zoloft. Dr. Mitchell recommended adding Trazodone to help with sleep and augment affects of Zoloft. Central Venous Access Medical Necessity for Access: Hemodynamic Monitoring (Left Femoral Shayla in place as well; Monitoring RIJ CVP), IV Access, Medication Administration Exam Sepsis Risk: No Definite Risk Problem Qualifiers (1) Pneumothorax: Pneumothorax type: chronic pneumothorax Qualified Codes: J93.81 - Chronic pneumothorax (2) Closed right clavicular fracture: Encounter type: initial encounter Clavicle location: unspecified part of clavicle Fracture alignment: displaced Qualified Codes: S42.001A - Fracture of unspecified part of right clavicle, initial encounter for closed fracture (3) Depression: Depression Type: unspecified Qualified Codes: F32.9 - Major depressive disorder, single episode, unspecified BARBRA ANGEL DO Dec 23, 2017 10:25
[2017-12-23 11:00] VITALS: BP 122/78
[2017-12-23 15:28] VITALS: BP 148/84
[2017-12-23 19:05] VITALS: BP 151/94
[2017-12-23] MEDS: MELATONIN 3 MG TAB PO SCH (21:06)
[2017-12-23] MEDS: traZODone HCL 50 MG TAB PO SCH (21:07)
[2017-12-23 21:54] VITALS: BP 149/86
[2017-12-24 02:33] VITALS: BP 159/90
[2017-12-24] MEDS: ACETAMINOPHEN 325 MG TAB PO PRN ×2 (02:37→09:01)
[2017-12-24] MEDS: oxyCODONE HCL 5 MG CAP PO PRN (06:33)
[2017-12-24 07:45] VITALS: BP 144/102
[2017-12-24] MEDS ORDERED: OXYC5TAB38 PO (08:41)
[2017-12-24] MEDS ORDERED: Alprazolam PO (08:41)
--- NOTE | 2017-12-24 08:45 | Short(Outpt) Discharge Summary ---
Discharge Summary Reason for Hosp/Final Diag: (1) Acute on chronic respiratory failure with hypoxia Status: Acute Hospital Course & Plan: 12/11/17: Transfer to ICU, intensify pulmonary toilet, High flow nasal cannula, continue Albuterol q 4 h, if no improvement then intubation, and mechanical ventilation. 12/12/17: Pt developed respiratory failure yesterday. Transferred to ICU and intubated yesterday, place a right chest tube, central line, and completed bronchoscopy. Started primaxin for PNA. Now stable. CXR this morning with right pneumothorax even with chest tube seemingly in good position and draining serous fluid. Not tidaling with vent and no obvious air leak on pleurovac. Turned up suction and will check CXR in 4 hours. If still with PTX, will place another chest tube anteriorly to evacuate pneumothorax. Started trophic TF via NG tube, gastric residuals are minimal. Will increase TF slowly to goal rate of 70ml/hr. Start bowel regimen today. Will stop sedation and wean vent as he tolerates. [facility] protocol for EtOH abuse. Banana bag for 3 days. Will discuss smoking cessation before going home. 12/13/17: Pt developed tension PTX yesterday in spite of chest tube present and a second chest tube was placed anteriorly. He has also developed ARDS. He is on a lower tidal volume with faster respiratory rate to avoid lung injury to non -compliant pulmonary segments. He is stable at the moment. CXR this morning c/ w worsening ARDS but no PTX and chest tubes, ETT, central line are in good position. Will place chest tubes to water seal today and check CXR on water seal. Will resume trophic TF via NG tube and follow gastric residuals. If tolerates this today with minimal gastric residuals then will increase feedings later today. Continue bowel regimen. Will conduct daily sedation vacations and work him out on the vent to prevent respiratory muscle atrophy. Continue aggressive pulmonary hygiene, lovenox, PPI. Will have a low threshold to transfer to [facility] for multidisciplinary vent management if we start to see signs of ventilatory trouble, decreasing compliance, problems oxygenating him, etc. I discussed this with his family who is ever-present at his bedside and they seem agreeable with this plan for now but they too would like to have a low threshold to transfer him. 12/14/17: He has done well overnight. Oxygenating well with good lung compliance. Will continue to wean vent slowly as patient tolerates along with daily sedation holidays. Will work on increasing TF to goal of 70cc/hour if he tolerates this. If not, may need to consider TPN. Replace potassium. Continue aggressive pulmonary hygiene, Lovenox, PPI. 12/15/17: ARDS criteria met; Severe; PF ratio today 112; Plateau Pressure 23, Compliance 33; CXR unchanged; Undergoing Lasix diuresis. Remains on lung protective ventilation strategy with 500 cc tidal volume (6.4 cc/kg TV with [place] Body weight by 6 foot height of 77.6 kg). Peep 6, FiO2 50%. Moderate secretions; HOB elevated. 12/16/17: per Dr. Wren's note 12/17/17: Doing better. Now on CPAP PEEP5 PS15 fiO2 40% with SaO2 mid 90s. Will wean PS this morning. If he does well on this then will plan on extubation today. Will leave remaining chest tube in place until after extubation and will plan on removing in the next couple of days if he does well. Continue aggressive pulmonary hygiene. Will hold on TF this morning and will place NG to wall suction to empty stomach in case he extubates today. Continue lasix diuresis. PPI, lovenox. 12/18/17: Doing much better. Extubated yesterday, so far doing well. Has period of agitation and required some ativan overnight due to period of beligerance while cleaning up a BM. Chest tube removed today. CXR later this morning. Will remove coyle and a-line. Start aggressive mobilization, PT/OT, pulmonary hygiene. Start clear diet. PPI, lovenox. Continue ICU care today. If he remains stable over the next 24 hours then will consider transferring him to [facility] tomorrow. 12/19/17: Continued improvement. Still having periods of confusion but slowly clearing. Will get head CT today. Will try to wean down narcotics and benzos. CXR improving. Oxygenating well on vapotherm canula. Increase mobilization, PT/OT. Continue aggressive pulmonary hygiene, IS. Will start regular diet. Continue lovenox and PPI, will start PO meds. May consider transfer to Med/ Surg later today if he continues to improve. 12/20/17: Continued improvement. Developed C.diff diarrhea so unasyn stopped and PO vanco started. Mentally cleared and close to baseline so head CT canceled. Continue to work with PT/OT and strength and mobility. Continue to wean down O2. Continue aggressive pulmonary hygiene, IS. Tolerating regular diet. Continue lovenox and PPI. Replace potassium. Will start daily oral potassium replacement since he's been requiring it daily and will follow serum potassium. Transfer to Med/Surg today. 12/21/17: Making good progress. Diarrhea seems improved/resolved. Continue PO vanco for 7 days. Continue PT/OT. Continue to wean down O2. Continue aggressive pulmonary hygiene, IS, ambulation, lovenox, PPI. Potassium is much better, now on PO replacement, will need to follow this to avoid hyperkalemia, especially now that diarrhea seems to have resolved, will check in am. 2 main issues preventing discharge are weakness and his O2 requirements. Will continue to work on strength and ambulation and will continue to wean O2 as he requires. 12/22/17: Doing well. Slowly coming down on O2. Increasing activity. No able to walk in the halls with a walker. Diarrhea has resolved, continue PO vanco for total of 7 days. Continue PT/OT, aggressive pulmonary hygiene, IS, ambulation, lovenox, PPI. Serum potassium is up to 4.2. Will stop PO replacement now that diarrhea has resolved and see if he's able to maintain a normal serum potassium level. 12/23/17: Doing well. WBC normal this morning. Potassium is normal without replacement. Tolerating diet. Continuing to decrease supplemental O2, now down to 3 L/min. Diarrhea is gone. Continue PT/OT, will try stairs tomorrow. Will ask special education case manager to provide education to him regarding smoking and EtOH cessation programs/help in [place]. He can go home tomorrow after PT/OT and special education case manager sees him. 12/24/17: Doing well. No issues this morning. Will d/c to home after working with PT on stairs, after set up with home/portable O2, and after special education case manager discusses local tobacco/EtOH cessation resources with him. (2) Multiple fractures of ribs, right side, initial encounter for closed fracture Status: Acute Hospital Course & Plan: . 12/09/17: Pain control good with epidural, voiding okay. Continue IS and Vigorous pulmonary toilet. 12/10/17: Having increased chest wall pain this am. Anesthesia will re bolus epidural. Once pain under better control, will need vigorous pulmonary toilet. 12/11/17: Added Gabapentin, IV Tylenol and increased dose of oxycodone for pain control. Despite this he is developing progressive RLL atelectasis and now hypoxemia with increasing O2 requirement. Bilateral patchy infiltrates noted. Afebrile with normal WBC. Will transfer to ICU with high flow NC. Bolus epidural, Intensify pulmonary toilet. Good chance he will require intubation, mechanical ventilation, and even bronchoscopy. 12/15/17: Multiple lateral right-sided rib fractures from the 4-8 ribs as well as posterior fractures of the 7-9 ribs near their vertebral articulations. Pain management with Fentanyl. CT x [address] on the right (3) Pneumothorax Status: Resolved Hospital Course & Plan: 12/15/17: Right CT x [address] Tension pneumothorax treated on 13 December with a second chest tube. CXR appears that pneumo is resolved (4) Hemothorax, right Status: Resolved Hospital Course & Plan: 12/09/17: Small hemothorax noted on CT not appreciated on this am CXR, Will recheck CXR in am, H&H stable. 12/10/17: CXR with increase in effusion. Hct down but likely related to IV hydration. Will get repeat CT chest today. Will place chest tube if this fluid appears as blood. Repeat CBC in am. 12/10/17: Chest CT reviewed, will continue to hold off on chest drain, though if increase further than will need pig tail or chest tube. Recheck CXR in am. Radiologist reports 1. Multiple patchy areas of consolidation with an upper lung zone predominance, new from 12/08/2017 most consistent with evolving lung contusions. Multifocal pneumonia is also possible. 2. A small right pleural effusion is larger. A trace left pleural effusion is new. Neither appears hemorrhagic. 3. Previously described fractures including multiple right rib fractures on the right clavicular shaft fracture are stable. 4. Mild coronary artery calcifications. 12/11/17: No significant increase in effusion, if he requires intubation then will place pleural drain. Hct stable 12/15/17: CT x [address], serous only drainage; Inferior chest tube with 160 cc out/ too much to remove today (5) Closed right clavicular fracture Status: Acute Hospital Course & Plan: 12/09/17: continue to use sling as we mobilize, ice pack, continue Percocet for pain control. 12/10/17: continue with same plan. 12/11/17: less edema, continue ice and sling. 12/15/17: Continues in sling for Right Clavicular fracture; No skin compromise or tenting (6) Abrasions of multiple sites Status: Resolved Hospital Course & Plan: 12/09/17: Received tetanus booster in the past year, Bacitracin to wounds (7) ARDS (adult respiratory distress syndrome) Status: Resolved Hospital Course & Plan: 12/15/17: ARDS criteria met; Severe; PF ratio today 112; Plateau Pressure 23, Compliance 33; CXR unchanged; Undergoing Lasix diuresis. Remains on lung protective ventilation strategy with 500 cc tidal volume (6.4 cc /kg TV with [place] Body weight by 6 foot height of 77.6 kg). Peep 6, FiO2 50%. Moderate secretions; HOB elevated. (8) Depression Status: Chronic Hospital Course & Plan: Continue home Zoloft. (9) Tension pneumothorax Status: Resolved Hospital Course & Plan: 12/15/17: CT x 2 on the right; no air leak. CXR stable (10) Volume overload Status: Resolved Hospital Course & Plan: 12/15/17: Daily weights have gone from 158 admission to 171.8 today with daily ++ balance. BUN/CR are both trending down and are low normals; CVP has trended up from 6 to 8.; CXR appears wet; Given lasix last PM with 2000 cc response. Will give 40 Lasix again this AM (11) At high risk for deep venous thrombosis Status: Acute Hospital Course & Plan: 12/15/17: High risk for DVT: on Lovenox 30 BID and SCDs; Consider screening duplex on ICU day 5 for high risk population (12) Hypokalemia Status: Resolved Hospital Course & Plan: 12/15/17: K level 3.2--- replaced with 80 meq potassium; will repeat K level in PM today (13) C. difficile diarrhea Status: Resolved Hospital Course & Plan: Start PO vanco, stop other abx. Departure Discharge to: Home, Self Care Discharge Instructions Home Meds Active Scripts Oxycodone Hcl (OXYCODONE HCL) 5 Mg Tablet, 1-2 TAB PO Q6H Y for PAIN, #30 TAB 0 Refills Decrease how much you're taking each day by 1 less pill per day every 2 days until you're off oxycodone Prov:BARBRA COLLIER MD 12/24/17 [ALPRAZolam(*) 0.25 MG TAB] 0.25mg TAB No Conflict Check, 1 TAB PO BID Y for ANXIETY, #20 TAB 0 Refills Prov:BARBRA COLLIER MD 12/24/17 Reported Medications Montelukast Sodium (SINGULAIR) 10 Mg Tablet, 1 TAB PO QDAY, TAB 12/09/17 Sertraline Hcl (ZOLOFT) 100 Mg Tablet, 1 TAB PO QDAY, TAB 12/09/17 Follow up Referrals: General Surgery - 12/31/17 @ Surgery, General with Barbra Collier Md You have a follow up appointment scheduled with Dr. Collier on 12/31/17, at 11:30am. Diet: Regular Activity: As Tolerated Problem Qualifiers (1) Pneumothorax: Pneumothorax type: chronic pneumothorax Qualified Codes: J93.81 - Chronic pneumothorax (2) Closed right clavicular fracture: Encounter type: initial encounter Clavicle location: unspecified part of clavicle Fracture alignment: displaced Qualified Codes: S42.001A - Fracture of unspecified part of right clavicle, initial encounter for closed fracture (3) Depression: Depression Type: unspecified Qualified Codes: F32.9 - Major depressive disorder, single episode, unspecified (4) Volume overload: Hypervolemia type: other Qualified Codes: E87.79 - Other fluid overload BARBRA COLLIER MD Dec 24, 2017 08:45
[2017-12-24] MEDS: VANCOMYCIN HCL 125 MG CAPSULE PO SCH (09:00)
[2017-12-24] MEDS: THIAMINE HCL 100 MG TAB PO SCH (09:00)
[2017-12-24] MEDS: PANTOPRAZOLE SOD 40 MG TABEC PO SCH (09:01)
[2017-12-24] MEDS: ENOXAPARIN 30 MG/0.3 ML SYR SC SCH (09:01)
[2017-12-24] MEDS: SERTRALINE HCL 50 MG TAB PO SCH (09:01)
== END 2017-12-24 10:15 | disposition home or self-care (01) | DRG 207 ==
LOC: ER 21:25 → ICU 12-09 01:11 → MED 12-09 10:09 → ICU 12-11 07:45 → MED 12-20 11:00
PROVIDERS: ADMIT Surgery; ATTEND Surgery
PROC: 5A1955Z Respiratory Ventilation, Greater than 96 Consecutive Hours (ICD-10-PCS; 2017-12-09)
PROC: 0BH17EZ Insertion of Endotracheal Airway into Trachea, Via Natural or Artificial Opening (ICD-10-PCS; 2017-12-09)
PROC: 0DH67UZ Insertion of Feeding Device into Stomach, Via Natural or Artificial Opening (ICD-10-PCS; 2017-12-09)
PROC: 3E0G76Z Introduction of Nutritional Substance into Upper GI, Via Natural or Artificial Opening (ICD-10-PCS; 2017-12-09)
PROC: 0W9930Z Drainage of Right Pleural Cavity with Drainage Device, Percutaneous Approach (ICD-10-PCS; principal; 2017-12-11)
PROC: 0B978ZZ Drainage of Left Main Bronchus, Via Natural or Artificial Opening Endoscopic (ICD-10-PCS; 2017-12-11)
PROC: 0B918ZZ Drainage of Trachea, Via Natural or Artificial Opening Endoscopic (ICD-10-PCS; 2017-12-11)
PROC: 0B938ZZ Drainage of Right Main Bronchus, Via Natural or Artificial Opening Endoscopic (ICD-10-PCS; 2017-12-11)
PROC: 02HV33Z Insertion of Infusion Device into Superior Vena Cava, Percutaneous Approach (ICD-10-PCS; 2017-12-11)
PROC: 0B948ZZ Drainage of Right Upper Lobe Bronchus, Via Natural or Artificial Opening Endoscopic (ICD-10-PCS; 2017-12-11)
PROC: 0B958ZZ Drainage of Right Middle Lobe Bronchus, Via Natural or Artificial Opening Endoscopic (ICD-10-PCS; 2017-12-11)
PROC: 0B968ZZ Drainage of Right Lower Lobe Bronchus, Via Natural or Artificial Opening Endoscopic (ICD-10-PCS; 2017-12-11)
PROC: 0B988ZZ Drainage of Left Upper Lobe Bronchus, Via Natural or Artificial Opening Endoscopic (ICD-10-PCS; 2017-12-11)
PROC: 0B9B8ZZ Drainage of Left Lower Lobe Bronchus, Via Natural or Artificial Opening Endoscopic (ICD-10-PCS; 2017-12-11)
PROC: 0W9930Z Drainage of Right Pleural Cavity with Drainage Device, Percutaneous Approach (ICD-10-PCS; 2017-12-12)
PROC: 04HY32Z Insertion of Monitoring Device into Lower Artery, Percutaneous Approach (ICD-10-PCS; 2017-12-12)
PROC: 4A133B1 Monitoring of Arterial Pressure, Peripheral, Percutaneous Approach (ICD-10-PCS; 2017-12-12)
DX: S27.1XXA Traumatic hemothorax, initial encounter (principal); J96.01 Acute respiratory failure with hypoxia; J93.0 Spontaneous tension pneumothorax; J69.0 Pneumonitis due to inhalation of food and vomit; S22.41XA Multiple fractures of ribs, right side, initial encounter for closed fracture; A04.72 Enterocolitis due to Clostridium difficile, not specified as recurrent; F10.230 Alcohol dependence with withdrawal, uncomplicated; S42.031A Displaced fracture of lateral end of right clavicle, initial encounter for closed fracture; R40.2412 Glasgow coma scale score 13-15, at arrival to emergency department; S50.311A Abrasion of right elbow, initial encounter; F32.9 Major depressive disorder, single episode, unspecified; F17.210 Nicotine dependence, cigarettes, uncomplicated; B95.1 Streptococcus, group B, as the cause of diseases classified elsewhere; R41.0 Disorientation, unspecified; E87.6 Hypokalemia; E87.79 Other fluid overload; V80.010A Animal-rider injured by fall from or being thrown from horse in noncollision accident, initial encounter; Y93.52 Activity, horseback riding; Y92.89 Other specified places as the place of occurrence of the external cause; Y99.8 Other external cause status
CPT/HCPCS: 31624; 32554; 36415; 36569; 36600; 36620; 70450; 71045; 71046; 71250; 71260; 72125; 80202; 81001; 82040; 82247; 82310; 82374; 82435; 82565; 82803; 82947; 83605; 83735; 83880; 84075; 84100; 84132; 84155; 84295; 84450; 84460; 84484; 84520; 85025; 87040; 87070; 87077; 87088; 87186; 87205; 87324; 87449; 93005; 93306; 94002; 94003; 94640; 94660; 94667; 94668; 94770; 96360; 96361; 96374; 96375; 96376; 97163; 97166; 99283; 99285; 99291; A4565; A7048; C1758; C9113; J0131; J0295; J0330; J0360; J0743; J1170; J1650; J1940; J2060; J2250; J2270; J2704; J3010; J3370; J3411; J3475; J3480; J7030; J7040; J7050; J7120; J7613; Q9967

== ENCOUNTER → 2017-12-08 | Outpatient (CLI) | payer BC ==
[~2017-12-08] MED LIST: CEP500 PO; HYDR2TAB41 PO; IBU200 PO; MONT10TA PO; NO ROUTINE MEDS; NOR5/325 PO; ONDA4TAB PO; PER PO; SERT-1 PO; SERT-173 PO
[2017-12-09 12:37] VITALS: BMI 22.0
== END ==
LOC: AMB 20:53
PROVIDERS: ATTEND Nurse Practitioner
DX: M25.511 Pain in right shoulder (principal); V80.010A Animal-rider injured by fall from or being thrown from horse in noncollision accident, initial encounter; Y92.39 Other specified sports and athletic area as the place of occurrence of the external cause
CPT/HCPCS: A0425; A0427

== ENCOUNTER → 2018-01-24 | Outpatient (CLI) | payer BC ==
[2017-12-09 12:37] VITALS: BMI 22.0
[~2018-01-24] MED LIST changes: +Alprazolam PO; +MONT10TA PO; +OXYC5TAB38 PO; +SERT-173 PO
--- NOTE | 2018-01-24 11:17 | RADIOLOGY IMAGING REPORT ---
FACILITY: [facility] [place] PATIENT NAME: Helena Nuñez : 1960 MR: [id number] V: [id number] EXAM DATE: ORDERING PHYSICIAN: BARBRA CHATTERJEE TECHNOLOGIST: Location: [facility] Patient: Helena Nuñez : 1960 Visit/Account:[id number] Date of Sevice: 01/24/2018 Exam type: CHEST PA AND LAT History: Shortness of breath on exertion Comparison: December 22, 2017 and December 10, 2017. Findings: Multiple subacute right-sided rib fractures again seen. There is no evidence of a pneumothorax or pn eumomediastinum. Subtle nodular densities project over the lateral aspect the left midlung field whi ch could be related to residual changes from patient's previous bilateral pulmonary opacities. Overa ll the lung cain appear better aerated. There is no evidence of pleural effusions or overt pulmona ry edema. Cardiac silhouette is normal in size. IMPRESSION: 1. Subtle nodular density is projected over the lateral aspect left midlung field which may be relat ed to residual changes from patient's previous bilateral pulmonary opacities. Lung cain appear bet ter aerated when compared to the prior study Subacute right-sided rib fractures although no evidence of a pneumothorax or pneumomediastinum Report Dictated By: Krista Almendarez MD at 01/24/2018 10:50 AM Report E-Signed By: Krista Almendarez MD at 01/24/2018 11:13 AM WSN:[email or web address]
== END ==
LOC: US 07:07
PROVIDERS: ATTEND Surgery
DX: R91.8 Other nonspecific abnormal finding of lung field (principal); S22.41XA Multiple fractures of ribs, right side, initial encounter for closed fracture
CPT/HCPCS: 71046; 93306